=== PATIENT | female | born 1995 | race Caucasian/White ===

== ENCOUNTER 2016-02-28 09:44 | Outpatient (CLI) | payer OTHER ==
[~2016-02-28 09:44] MED LIST: METF-414 PO; PRENTAB31 PO
[2016-02-28 10:00] VITALS: BP 143/84
[2016-02-28] MEDS ORDERED: methylPREDNISolone 1,000 MG, VIAL MATE ADAPTER 1 EACH in D5W 250 ML IV ONE (10:00)
[2016-02-28] MEDS ORDERED: PROT1TAB2 PO (10:04)
[2016-02-28] MEDS ORDERED: VITA100037 PO (10:04)
[2016-02-28 11:05] VITALS: BP 132/80
== END 2016-02-28 11:11 | disposition home or self-care (01) ==
LOC: M OPCLIPED 09:44 → M PED 09:46 → M OPCLIPED 11:11
PROVIDERS: ATTEND Internal Medicine Nephrology
DX: G35 Multiple sclerosis (principal)
CPT/HCPCS: 96374; J2930

== ENCOUNTER → 2016-03-30 | Outpatient (REF) | payer OTHER ==
[~2016-03-30] MED LIST changes: +PROT1TAB2 PO; +VITA100037 PO
[2016-03-30 20:16] LABS: CONTROL LINE HCG INT CTR LINE PRESENT
== END | disposition home or self-care (01) ==
LOC: M SFHCLERA 17:10
PROVIDERS: ATTEND Family Medicine
DX: N91.0 Primary amenorrhea (principal)

== ENCOUNTER → 2016-05-19 | Outpatient (REF) | payer OTHER ==
[2016-05-19 21:03] LABS: CONTROL LINE HCG INT CTR LINE PRESENT
== END ==
LOC: M SFHCLERA 17:03
PROVIDERS: ATTEND Family Medicine
DX: N92.6 Irregular menstruation, unspecified (principal)

== ENCOUNTER → 2016-06-14 | Outpatient (REF) | payer OTHER | LOC: M SFHCLERA 12:54 | PROVIDERS: ATTEND Family Medicine | DX: L05.01 Pilonidal cyst with abscess (principal) ==

== ENCOUNTER 2016-06-22 09:51 | Emergency (ER) | payer OTHER ==
[~2016-06-22] VITALS: Ht 152.4 cm; Wt 66.2 kg
[2016-06-22] MEDS ORDERED: COPA1INJ SC (10:03)
[2016-06-22] MEDS ORDERED: BACT800T5 PO (10:03)
[2016-06-22] MEDS ORDERED: ONDANSETRON 4MG/2ML VIAL (J2405) IV ONE (10:15)
[2016-06-22] MEDS ORDERED: NS 500 ML IV ONE (10:15)
[2016-06-22] MEDS ORDERED: PANTOPRAZOLE 40MG INJ (PROTONIX) (C9113) IV ONE (10:15)
[2016-06-22 10:40] LABS: BASO % 0.6 % (0.0-1.0); EOS # 0.3 K/mm3 (0.0-0.50); EOS % 3.7 % (0.0-3.0); LARGE UNSTAINED CELL # 0.2 K/mm3 (0.0-0.4); LARGE UNSTAINED CELL % 2.2 % (0.0-4.0); LYMPH # 2.5 K/mm3 (1.5-6.5); MEAN CORPUSCULAR HGB CONC 34.9 g/dl (32.0-36.5); MONO # 0.3 K/mm3 (0.0-0.8); MONO % 2.9 % (0.0-5.0); NEUTROPHILS # 5.7 K/mm3 (1.8-7.7); NEUTROPHILS % 64.6 % (36.0-66.0); PLATELET COUNT, AUTOMATED 236 k/mm3 (150-450); RED CELL DISTRIBUTION WIDTH 12.4 % (11.5-14.5); WHITE BLOOD COUNT 8.8 K/mm3 (4.0-10.0)
[2016-06-22 11:03] LABS: ALBUMIN 4.3 GM/DL (3.2-5.2); ALBUMIN/GLOBULIN RATIO 1.26 (1.00-1.93); ALKALINE PHOSPHATASE 66 U/L (45-117); ALT/SGPT 122 U/L (12-78); AMYLASE 39 U/L (25-115); ANION GAP 9 MEQ/L (8-16); AST/SGOT 62 U/L (15-37); BILIRUBIN,DIRECT 0.2 MG/DL (0.0-0.2); BILIRUBIN,TOTAL 0.6 MG/DL (0.2-1.0); BLOOD UREA NITROGEN 8 MG/DL (7-18); CALCIUM LEVEL 8.7 MG/DL (8.5-10.1); CARBON DIOXIDE LEVEL 25 MEQ/L (21-32); CHLORIDE LEVEL 104 MEQ/L (98-107); CREATININE FOR GFR 0.93 MG/DL (0.55-1.02); GLOMERULAR FILTRATION RATE > 60.0 (>60); GLUCOSE, FASTING 89 MG/DL (70-105); POTASSIUM SERUM 4.1 MEQ/L (3.5-5.1); SODIUM LEVEL 138 MEQ/L (136-145); TOTAL PROTEIN 7.7 GM/DL (6.4-8.2)
[2016-06-22] MEDS ORDERED: ZOFR4TAB3 PO (11:36)
[2016-06-22 11:42] VITALS: BP 99/57
== END 2016-06-22 12:07 | disposition home or self-care (01) ==
LOC: M ED 12:00
DX: R10.31 Right lower quadrant pain (principal); R11.2 Nausea with vomiting, unspecified; G35 Multiple sclerosis; E28.2 Polycystic ovarian syndrome; F17.200 Nicotine dependence, unspecified, uncomplicated; Z88.1 Allergy status to other antibiotic agents; Z79.899 Other long term (current) drug therapy

== ENCOUNTER 2016-08-11 12:47 | Emergency (ER) | payer OTHER, SELFPAY ==
[~2016-08-11] VITALS: Ht 152.4 cm; Wt 67.0 kg
[~2016-08-11 12:47] MED LIST changes: +BACT800T5 PO; +COPA1INJ SC; -VITA100037 PO; +VITA100067 PO; +ZOFR4TAB3 PO
[2016-08-11 14:47] LABS: BASO % 0.5 % (0.0-1.0); EOS # 0.2 K/mm3 (0.0-0.50); EOS % 2.1 % (0.0-3.0); LARGE UNSTAINED CELL # 0.1 K/mm3 (0.0-0.4); LARGE UNSTAINED CELL % 1.5 % (0.0-4.0); LYMPH # 2.6 K/mm3 (1.5-6.5); LYMPH % 28.1 % (24.0-44.0); MEAN CORPUSCULAR HEMOGLOBIN 31.2 pg (27.0-33.0); MEAN CORPUSCULAR VOLUME 85.2 fl (80.0-96.0); MONO # 0.4 K/mm3 (0.0-0.8); MONO % 3.9 % (0.0-5.0); NEUTROPHILS # 5.7 K/mm3 (1.8-7.7); NEUTROPHILS % 63.8 % (36.0-66.0); PLATELET COUNT, AUTOMATED 184 k/mm3 (150-450); RED CELL DISTRIBUTION WIDTH 13.1 % (11.5-14.5); WHITE BLOOD COUNT 8.9 K/mm3 (4.0-10.0)
[2016-08-11 14:55] LABS: MEAN CORPUSCULAR HGB CONC 36.6 g/dl (32.0-36.5)
[2016-08-11 15:00] LABS: ANION GAP 5 MEQ/L (8-16); BLOOD UREA NITROGEN 15 MG/DL (7-18); CALCIUM LEVEL 9.1 MG/DL (8.5-10.1); CARBON DIOXIDE LEVEL 29 MEQ/L (21-32); CHLORIDE LEVEL 108 MEQ/L (98-107); CREATININE FOR GFR 0.73 MG/DL (0.55-1.02); GLOMERULAR FILTRATION RATE > 60.0 (>60); GLUCOSE, FASTING 99 MG/DL (70-105); POTASSIUM SERUM 3.9 MEQ/L (3.5-5.1); SODIUM LEVEL 142 MEQ/L (136-145)
[2016-08-11] MEDS ORDERED: methylPREDNISolone INJ 125 MG/2 ML VIAL (J2930) IV ONE (15:00)
[2016-08-11] MEDS ORDERED: ONDANSETRON 4MG/2ML VIAL (J2405) IV ONE (15:45)
[2016-08-11] MEDS ORDERED: KETOROLAC 30 MG/ML VIAL (J1885) IV ONE (15:45)
[2016-08-11] MEDS ORDERED: ZOFR4TAB3 PO (17:37)
[2016-08-11 17:50] VITALS: BP 101/56
== END 2016-08-11 17:52 | disposition home or self-care (01) ==
LOC: M ED 13:44
DX: G35 Multiple sclerosis (principal); E28.2 Polycystic ovarian syndrome; Z79.899 Other long term (current) drug therapy; Z88.1 Allergy status to other antibiotic agents
CPT/HCPCS: 80048; 85025; 96374; 96375; 99283; J1885; J2405; J2930

== ENCOUNTER → 2016-09-26 | Outpatient (CLI) | payer OTHER | LOC: M LAB 08:47 | PROVIDERS: ATTEND Family Medicine | DX: Z36 Encounter for antenatal screening of mother (principal); Z3A.01 Less than 8 weeks gestation of pregnancy ==

== ENCOUNTER → 2016-09-28 | Outpatient (CLI) | payer OTHER | LOC: M LAB 07:08 | PROVIDERS: ATTEND Family Medicine | DX: Z3A.01 Less than 8 weeks gestation of pregnancy (principal) ==

== ENCOUNTER → 2016-10-04 | Outpatient (CLI) | payer OTHER | LOC: M LAB 13:11 | PROVIDERS: ATTEND Family Medicine | DX: Z36 Encounter for antenatal screening of mother (principal); Z3A.01 Less than 8 weeks gestation of pregnancy ==

== ENCOUNTER → 2016-10-05 | Outpatient (CLI) | payer OTHER ==
--- NOTE | 2016-10-05 19:28 | REP ---
REASON FOR EXAM: Cramping no apparent disease vaginal bleeding. COMPARISON: None. Multiple ultrasonographic images of the uterus show an anechoic structure within the endometrial complex with early increased echoes surrounding it suggestive of a decidual reaction. The mean gestational sac dimension is consistent with a 5 week 5 day gestational age. Doppler interrogation of the suspected gestational sac shows no evidence of cardiac activity. No yolk sac or pole was identified. A small amount of fluid was seen in the endocervical canal. Right ovary measures 3.1 x 1.9 x 2.7 cm and is within normal limits with an RI of 0.57. Left ovary measures 4.4 x 2.1 x 3.4 cm within the substance of the left ovary there is a 2 x 2.3 x 1.6 cm sized anechoic structure suggestive of a corpus luteum cyst. The right ovarian RI is 0.44. IMPRESSION: Possible early OB ultrasound as described above. Certainly, spontaneous in progress can not be ruled out by this exam. Followup is recommended. There was no definite evidence of an ectopic . If the patient is having pain then I would recommend close followup. Signed by eKl Medeiros DO 10/05/2016 07:46 P
== END ==
LOC: M RAD 18:02
PROVIDERS: ATTEND Obstetrics & Gynecology Gynecologic Oncology
DX: O26.851 Spotting complicating pregnancy, first trimester (principal)

== ENCOUNTER → 2016-10-12 | Outpatient (CLI) | payer OTHER ==
[2016-10-12 14:02] LABS: BASO % 0.3 % (0.0-1.0); EOS # 0.1 K/mm3 (0.0-0.50); EOS % 1.8 % (0.0-3.0); LARGE UNSTAINED CELL # 0.2 K/mm3 (0.0-0.4); LYMPH % 24.8 % (24.0-44.0); MEAN CORPUSCULAR HEMOGLOBIN 31.1 pg (27.0-33.0); MEAN CORPUSCULAR HGB CONC 35.5 g/dl (32.0-36.5); MEAN CORPUSCULAR VOLUME 87.6 fl (80.0-96.0); MONO # 0.3 K/mm3 (0.0-0.8); MONO % 3.1 % (0.0-5.0); NEUTROPHILS # 5.5 K/mm3 (1.8-7.7); NEUTROPHILS % 68.1 % (36.0-66.0); PLATELET COUNT, AUTOMATED 186 k/mm3 (150-450); RED CELL DISTRIBUTION WIDTH 12.3 % (11.5-14.5); WHITE BLOOD COUNT 8.1 K/mm3 (4.0-10.0)
[2016-10-12 14:33] LABS: HBsAg Prenatal NEGATIVE (NEGATIVE)
== END ==
LOC: M LAB 12:48
PROVIDERS: ATTEND Obstetrics & Gynecology
DX: Z34.81 Encounter for supervision of other normal pregnancy, first trimester (principal); Z36 Encounter for antenatal screening of mother; Z3A.00 Weeks of gestation of pregnancy not specified

== ENCOUNTER 2016-11-02 13:34 | Emergency (ER) | payer OTHER ==
[~2016-11-02] VITALS: Ht 152.4 cm; Wt 66.8 kg
[2016-11-02 13:34] VITALS: BP 132/74
== END 2016-11-02 15:11 | disposition left against medical advice (07) ==
LOC: M ED 13:34
DX: R10.9 Unspecified abdominal pain (principal); Z53.21 Procedure and treatment not carried out due to patient leaving prior to being seen by health care provider

== ENCOUNTER → 2016-11-23 | Outpatient (CLI) | payer OTHER | LOC: M LAB 11:17 | PROVIDERS: ATTEND Advanced Practice Midwife | DX: Z00.00 Encounter for general adult medical examination without abnormal findings (principal) ==

== ENCOUNTER → 2017-01-12 | Outpatient (CLI) | payer OTHER ==
--- NOTE | 2017-01-13 08:19 | REP ---
Clinical: Anatomical evaluation. Comparison: 10/05/2016 . Findings: Examination demonstrates a single live intrauterine in transverse lie (head to maternal right) presentation. motion is identified by technologist. Placenta is noted posteriorly and grade zero without evidence for placenta previa or abruption. Amniotic fluid volume is normal. Cervix measures 3.5 cm in length and appears closed. No evidence for nuchal cord. Gestational age by LMP 19 weeks 6 days with CARYN 06/02/2017 . Gestational age by current measurements 19 weeks 6 days with CARYN 06/02/2017 . FHR equals 144 beats per minute. BPD 4.7 cm 20 weeks 1 day HC 16.6 cm 19 weeks 2 days AC 16.4 cm 21 weeks 3 days FL 3.0 cm 19 weeks 2 days HL 2.9 cm 19 weeks 3 days HC/AC ratio 1.01 Estimated weight 340 grams ( 63rd percentile). Anatomical assessment demonstrates normal structures including cranium, choroid plexus, cavum, cerebellum/posterior fossa, nose and lips, lungs, diaphragm, stomach, cord insertion/three-vessel cord, kidneys, spine, and extremities. Limited evaluation of the facial profile, heart/ventricular outflow tracts, and bladder. Renal pelviectasis is appreciated but within normal range. Impression: Single live intrauterine in transverse lie demonstrating appropriate interval growth. Anatomical limitations as described above may warrant reevaluation and follow-up. Signed by Misha Arce MD 01/13/2017 08:10 A
== END ==
LOC: M RAD 17:33
PROVIDERS: ATTEND Specialist
DX: Z36.2 Encounter for other antenatal screening follow-up (principal)

== ENCOUNTER → 2017-01-24 | Outpatient (CLI) | payer OTHER ==
--- NOTE | 2017-01-24 22:10 | REP ---
Clinical: Anatomical evaluation. Comparison: 01/12/2017 . Findings: Examination demonstrates a single live intrauterine in breech presentation. motion is identified by technologist. Placenta is noted posteriorly and grade zero without evidence for placenta previa or abruption. Amniotic fluid volume is normal. Cervix measures 3.9 cm in length and appears closed. No evidence for nuchal cord. Gestational age by LMP 21 weeks 4 days with CARYN 06/02/2017 . Gestational age by current measurements 21 weeks 1 day with CARYN 06/05/2017 . FHR equals 162 beats per minute. Estimated weight 438 grams ( 46th percentile). Anatomical assessment demonstrates normal structures including cranium, choroid plexus, cavum, cerebellum/posterior fossa, facial features, lungs, four-chamber heart/ventricular outflow tracts, diaphragm, stomach, cord insertion/three-vessel cord, bladder, and spine. Mild renal pelviectasis is suggested measuring up to 7 mm. Impression: 1. Single live intrauterine in breech presentation demonstrating appropriate interval growth. 2. Mild renal pelviectasis is appreciated. Remainder of the anatomical assessment is complete and normal. Signed by Misha Arce MD 01/24/2017 10:02 P
== END ==
LOC: M RAD 17:15
PROVIDERS: ATTEND Specialist
DX: Z34.80 Encounter for supervision of other normal pregnancy, unspecified trimester (principal)

== ENCOUNTER → 2017-03-13 | Outpatient (CLI) | payer OTHER, BC ==
[2017-03-13 12:52] LABS: HEMATOCRIT 31.2 % (36.0-47.0); MEAN CORPUSCULAR HEMOGLOBIN 31.3 pg (27.0-33.0); MEAN CORPUSCULAR HGB CONC 35.3 g/dl (32.0-36.5); MEAN CORPUSCULAR VOLUME 88.9 fl (80.0-96.0); PLATELET COUNT, AUTOMATED 215 10^3/uL (150-450); RED BLOOD COUNT 3.51 10^6/uL (4.00-5.40); RED CELL DISTRIBUTION WIDTH 13.2 % (11.5-14.5); WHITE BLOOD COUNT 15.1 10^3/uL (4.0-10.0)
[2017-03-13 13:44] LABS: GLUCOSE CHALLENGE TEST 1 HOUR 117 MG/DL (LESS THAN 140)
== END ==
LOC: M LAB 10:51
DX: Z36.89 Encounter for other specified antenatal screening (principal); Z3A.00 Weeks of gestation of pregnancy not specified
CPT/HCPCS: 82950

== ENCOUNTER → 2017-04-04 | Outpatient (REF) | payer OTHER, BC ==
[2017-04-05 13:08] LABS: INFLUENZA A AMPLIFICATION NEGATIVE (NEGATIVE); INFLUENZA B AMPLIFICATION NEGATIVE (NEGATIVE)
== END ==
LOC: M SFHCLERA 12:15
DX: R50.9 Fever, unspecified (principal)

== ENCOUNTER 2017-04-07 13:35 | Outpatient (CLI) | payer OTHER, BC | END 2017-04-07 15:19 | disposition home or self-care (01) | LOC: M LDO 13:35 | DX: O47.03 False labor before 37 completed weeks of gestation, third trimester (principal); Z3A.30 30 weeks gestation of pregnancy; O62.0 Primary inadequate contractions | CPT/HCPCS: 59025 ==

== ENCOUNTER → 2017-04-25 | Outpatient (REF) | payer OTHER, BC | LOC: M LAB REF 13:35 | DX: Z86.14 Personal history of Methicillin resistant Staphylococcus aureus infection (principal) ==

== ENCOUNTER → 2017-05-09 | Outpatient (REF) | payer OTHER, BC | LOC: M LAB REF 16:58 | DX: Z36.89 Encounter for other specified antenatal screening (principal); Z3A.00 Weeks of gestation of pregnancy not specified | CPT/HCPCS: 87081 ==

== ENCOUNTER 2017-05-17 18:18 | Outpatient (CLI) | payer BC, OTHER | END 2017-05-17 21:15 | disposition home or self-care (01) | LOC: M LDO 18:18 | DX: O47.03 False labor before 37 completed weeks of gestation, third trimester (principal); Z3A.36 36 weeks gestation of pregnancy; Z88.1 Allergy status to other antibiotic agents | CPT/HCPCS: 59025 ==

== ENCOUNTER → 2017-05-17 | Outpatient (REF) | payer OTHER, BC | LOC: M LAB REF 17:11 | DX: Z34.83 Encounter for supervision of other normal pregnancy, third trimester (principal) ==

== ENCOUNTER 2017-06-09 10:49 | Inpatient (IN) | payer OTHER, BC ==
[2017-06-09 12:57] LABS: HEMATOCRIT 36.2 % (36.0-47.0); HEMOGLOBIN 12.8 g/dl (12.0-15.5); MEAN CORPUSCULAR HEMOGLOBIN 31.1 pg (27.0-33.0); MEAN CORPUSCULAR HGB CONC 35.4 g/dl (32.0-36.5); MEAN CORPUSCULAR VOLUME 88.1 fl (80.0-96.0); PLATELET COUNT, AUTOMATED 187 10^3/uL (150-450); RED BLOOD COUNT 4.11 10^6/uL (4.00-5.40); RED CELL DISTRIBUTION WIDTH 13.9 % (11.5-14.5); WHITE BLOOD COUNT 10.8 10^3/uL (4.0-10.0)
[2017-06-09] MEDS: miSOPROStol 50 MCG 1/2 TAB (S0191) SL (13:01)
[2017-06-09] MEDS: LR 1,000 ML IV (13:02)
[2017-06-09] MEDS: LACTATED RINGER'S 1000 ML IV (14:33)
[2017-06-09] MEDS ORDERED: ALBUTEROL 90 MCG/ACT 8GM HFA INHALER INH (15:15)
[2017-06-09] MEDS ORDERED: OXYTOCIN 30 UNITS IN 0.9% NaCl 500ML IV BAG (J2590) As Ordered (21:30)
[2017-06-09] MEDS ORDERED: OXYTOCIN DRIP 30 UNITS in APPROPRIATE DILUENT 1 EA IV (21:45)
[2017-06-09] MEDS ORDERED: FENTANYL 2MCG/ML ROPIVACAINE 0.2% IN 0.9% NACL 200ML IVBAG As Ordered (23:25)
[2017-06-10] MEDS ORDERED: FENTANYL/ROPIVACAINE/NACL BAG 200 ML EPIDURAL (01:00)
[2017-06-10] MEDS ORDERED: NALOXONE INJ 0.4 MG/1 ML VIAL (J2310) IV (01:00)
[2017-06-10] MEDS ORDERED: REFRIGERATOR IV KEYS XX (01:00)
[2017-06-10] MEDS ORDERED: EPIDURAL COMMENT XX (01:00)
[2017-06-10] MEDS ORDERED: ePHEDrine SULFATE 25 MG/5 ML(5MG/ML) SYRINGE IV (01:00)
[2017-06-10] MEDS ORDERED: LACTATED RINGER'S 1000 ML IV (01:00)
[2017-06-10] MEDS ORDERED: ONDANSETRON 4MG/2ML VIAL (J2405) IV ×2 (01:00→06:15)
[2017-06-10] MEDS ORDERED: diphenhydrAMINE INJ 50MG/ML VIAL (J1200) IV (01:00)
[2017-06-10] MEDS ORDERED: EPIDURAL/PCA KEYS XX (01:00)
[2017-06-10] MEDS: OXYTOCIN DRIP 30 UNITS in APPROPRIATE DILUENT 1 EA IV (06:08)
[2017-06-10] MEDS: LR 1,000 ML IV ×3 (06:08→09:44)
[2017-06-10] MEDS ORDERED: DIBUCAINE 1% OINTMENT 30GM TOP (06:15)
[2017-06-10] MEDS ORDERED: MEASLES,MUMPS,RUBELLA VACCINE INJ (MMR-II) (90707) SC (06:15)
[2017-06-10] MEDS ORDERED: RHOGAM 300 MCG (1500 IU) INJ (J2790) IM (06:15)
[2017-06-10] MEDS ORDERED: PROMETHAZINE 25 MG TAB PO (06:15)
[2017-06-10] MEDS: PRENATAL VITAMINS CHEWABLE TABLET PO (09:15)
[2017-06-10] MEDS ORDERED: CALCIUM CARBONATE 500 MG CHEW U/D PO (10:30)
[2017-06-10] MEDS ORDERED: ALBUTEROL 90 MCG/ACT 8GM HFA INHALER INH (10:30)
[2017-06-10] MEDS: IBUPROFEN 800 MG TAB PO (17:25)
[2017-06-10] MEDS: DOCUSATE SODIUM 100 MG CAP PO (19:46)
[2017-06-10] MEDS: ACETAMINOPHEN 500 MG TAB PO (19:47)
[2017-06-11] MEDS: ACETAMINOPHEN 500 MG TAB PO (05:17)
[2017-06-11] MEDS: IBUPROFEN 800 MG TAB PO (05:18)
[2017-06-11] MEDS: PRENATAL VITAMINS CHEWABLE TABLET PO (07:53)
== END 2017-06-11 16:31 | disposition home or self-care (01) | DRG 775 ==
LOC: M LDI 10:49 → M OBS 06-10 09:30
PROVIDERS: Obstetrics & Gynecology
PROC: 3E0P7GC Introduction of Other Therapeutic Substance into Female Reproductive, Via Natural or Artificial Opening (ICD-10-PCS; 2017-06-09)
PROC: 10E0XZZ Delivery of Products of Conception, External Approach (ICD-10-PCS; principal; 2017-06-10)
PROC: 0HQ9XZZ Repair Perineum Skin, External Approach (ICD-10-PCS; 2017-06-10)
DX: O99.354 Diseases of the nervous system complicating childbirth (principal); G35 Multiple sclerosis; Z3A.39 39 weeks gestation of pregnancy; O70.0 First degree perineal laceration during delivery; O99.334 Smoking (tobacco) complicating childbirth; F17.210 Nicotine dependence, cigarettes, uncomplicated; Z37.0 Single live birth

== ENCOUNTER → 2017-07-05 | Outpatient (CLI) | payer OTHER, BC ==
[2017-07-05 14:19] LABS: THYROID STIMULATING HORMONE 0.503 uIU/ML (0.358-3.740)
== END ==
LOC: M LAB 12:37
DX: F41.9 Anxiety disorder, unspecified (principal)
CPT/HCPCS: 84443

== ENCOUNTER → 2017-07-05 | Outpatient (CLI) | payer OTHER, BC ==
[2017-07-05 13:12] LABS: BASO # 0.1 10^3/uL (0.0-0.2); BASO % 0.5 % (0.0-1.0); EOS # 0.3 10^3/uL (0.0-0.50); EOS % 2.6 % (0.0-3.0); HEMATOCRIT 38.4 % (36.0-47.0); HEMOGLOBIN 13.2 g/dl (12.0-15.5); IMMATURE GRANULOCYTE % 0.2 % (0-3.0); LYMPH # 3.7 10^3/uL (1.5-6.5); LYMPH % 39.3 % (24.0-44.0); MEAN CORPUSCULAR HEMOGLOBIN 30.2 pg (27.0-33.0); MEAN CORPUSCULAR HGB CONC 34.4 g/dl (32.0-36.5); MEAN CORPUSCULAR VOLUME 87.9 fl (80.0-96.0); MONO # 0.4 10^3/uL (0.0-0.8); MONO % 3.8 % (0.0-5.0); NEUTROPHILS # 5.1 10^3/uL (1.8-7.7); NEUTROPHILS % 53.6 % (36.0-66.0); PLATELET COUNT, AUTOMATED 249 10^3/uL (150-450); RED BLOOD COUNT 4.37 10^6/uL (4.00-5.40); RED CELL DISTRIBUTION WIDTH 12.3 % (11.5-14.5); WHITE BLOOD COUNT 9.5 10^3/uL (4.0-10.0)
[2017-07-05 14:08] LABS: ALBUMIN 3.9 GM/DL (3.2-5.2); ALBUMIN/GLOBULIN RATIO 1.18 (1.00-1.93); ALKALINE PHOSPHATASE 71 U/L (45-117); ALT/SGPT 19 U/L (12-78); AST/SGOT 13 U/L (7-37); BILIRUBIN,DIRECT 0.2 MG/DL (0.0-0.2); BILIRUBIN,TOTAL 1.2 MG/DL (0.2-1.0); TOTAL PROTEIN 7.2 GM/DL (6.4-8.2)
[2017-07-06 10:14] LABS: HERPES ZOSTER, VARICELLA IgG 607 index (Immune >165)
== END ==
LOC: M LAB 12:30
DX: G35 Multiple sclerosis (principal)
CPT/HCPCS: 93005

== ENCOUNTER 2017-11-11 12:00 | Emergency (ER) | payer OTHER, BC ==
[2017-11-11 13:09] LABS: HEMATOCRIT 37.8 % (36.0-47.0); HEMOGLOBIN 12.8 g/dl (12.0-15.5); MEAN CORPUSCULAR HEMOGLOBIN 29.5 pg (27.0-33.0); MEAN CORPUSCULAR HGB CONC 33.9 g/dl (32.0-36.5); MEAN CORPUSCULAR VOLUME 87.1 fl (80.0-96.0); PLATELET COUNT, AUTOMATED 236 10^3/uL (150-450); RED BLOOD COUNT 4.34 10^6/uL (4.00-5.40); RED CELL DISTRIBUTION WIDTH 12.5 % (11.5-14.5); WHITE BLOOD COUNT 13.3 10^3/uL (4.0-10.0)
[2017-11-11] MEDS: METOCLOPRAMIDE INJ 10MG/2ML VIAL (J2765) IV (13:09)
[2017-11-11] MEDS: diphenhydrAMINE INJ 50MG/ML VIAL (J1200) IV (13:09)
[2017-11-11] MEDS: NS 1,000 ML IV (13:10)
[2017-11-11] MEDS: IPRATROPIUM 0.5MG/ALBUTEROL 2.5MG INH SOL UD 3ML (DUONEB)(J7620) NEB (13:30)
[2017-11-11 13:32] LABS: ANION GAP 8 MEQ/L (8-16); BLOOD UREA NITROGEN 13 MG/DL (7-18); CARBON DIOXIDE LEVEL 24 MEQ/L (21-32); CHLORIDE LEVEL 108 MEQ/L (98-107); CREATININE FOR GFR 0.94 MG/DL (0.55-1.30); GLOMERULAR FILTRATION RATE > 60.0 (>60); GLUCOSE, FASTING 98 MG/DL (70-100); POTASSIUM SERUM 4.3 MEQ/L (3.5-5.1); SODIUM LEVEL 140 MEQ/L (136-145)
[2017-11-11] MEDS: dexameTHASONE 20 MG/5 ML VIAL (J1100) IV (14:24)
== END 2017-11-11 15:13 | disposition home or self-care (01) ==
LOC: M ED 12:00
DX: R51 Headache (principal); L02.31 Cutaneous abscess of buttock; G35 Multiple sclerosis; K21.9 Gastro-esophageal reflux disease without esophagitis; F41.9 Anxiety disorder, unspecified; F33.9 Major depressive disorder, recurrent, unspecified; Z79.899 Other long term (current) drug therapy; F17.210 Nicotine dependence, cigarettes, uncomplicated
CPT/HCPCS: J1200

== ENCOUNTER → 2018-03-09 | Outpatient (REF) | payer OTHER, BC ==
[~2018-03-09] MED LIST changes: +ALBU17IN2 INH; +CLIN150C14 PO; +IBUP-1114 PO; +IMIT50TA PO; +MAPA500T2 PO; +METF10004 PO; +PANT40TA3 PO; +RANI15TA PO; +SERT25TA PO; +SPRI28TA PO; +TUMS500C PO; +ZOFR4TAB14 PO; -ZOFR4TAB3 PO
== END ==
LOC: M SFHCLERA 10:49
PROVIDERS: ATTEND Family Medicine
DX: Z11.1 Encounter for screening for respiratory tuberculosis (principal); Z78.9 Other specified health status

== ENCOUNTER → 2018-11-01 | Outpatient (REF) | payer OTHER, BC ==
[~2018-11-01] MED LIST changes: -ALBU17IN2 INH; +PROV108A INH; -SERT25TA PO; +SERT25TA85 PO
== END ==
LOC: M SFHCLERA 15:49
PROVIDERS: ATTEND Physician Assistant
DX: Z11.1 Encounter for screening for respiratory tuberculosis (principal)

== ENCOUNTER → 2018-11-04 | Outpatient (REF) | payer BC | LOC: M LAB REF 11:05 | PROVIDERS: ATTEND Nurse Practitioner Family | DX: J02.9 Acute pharyngitis, unspecified (principal) ==

== ENCOUNTER → 2019-06-20 | Outpatient (REF) | payer OTHER, BC | LOC: M SFHCLERA 16:17 | PROVIDERS: ATTEND Family Medicine | DX: N92.6 Irregular menstruation, unspecified (principal) ==

== ENCOUNTER 2019-08-22 15:21 | Emergency (ER) | payer BC, OTHER ==
[~2019-08-22] VITALS: Ht 152.4 cm; Wt 70.5 kg
[2019-08-22] MEDS ORDERED: PRED10TA2 PO (17:26)
[2019-08-22] MEDS ORDERED: predniSONE 20 MG TAB PO ONE (17:30)
[2019-08-22 17:35] VITALS: BP 119/79
== END 2019-08-22 17:37 | disposition home or self-care (01) ==
LOC: M ED 15:21
DX: G35 Multiple sclerosis (principal); R51 Headache; R47.81 Slurred speech; R13.10 Dysphagia, unspecified; F17.210 Nicotine dependence, cigarettes, uncomplicated

== ENCOUNTER 2019-08-27 15:24 | Outpatient (CLI) | payer BC ==
[~2019-08-27] VITALS: Ht 152.4 cm; Wt 70.5 kg
[~2019-08-27 15:24] MED LIST changes: +PRED10TA2 PO
[2019-08-27 15:49] VITALS: BP 101/59
[2019-08-27] MEDS ORDERED: methylPREDNISolone 1,000 MG, VIAL MATE ADAPTER 1 EACH in D5W 250 ML IV ONE (16:00)
[2019-08-27 17:21] VITALS: BP 104/56
== END 2019-08-27 17:25 | disposition home or self-care (01) ==
LOC: M INFU 15:24
PROVIDERS: ATTEND Physician Assistant
DX: G35 Multiple sclerosis (principal)
CPT/HCPCS: 96365; J2930

== ENCOUNTER 2019-08-28 16:01 | Outpatient (CLI) | payer BC ==
[~2019-08-28] VITALS: Ht 152.4 cm; Wt 70.5 kg
[~2019-08-28 16:01] MED LIST changes: +PANT40TA29 PO; -PANT40TA3 PO; +methylPREDNISolone 1,000 MG, VIAL MATE ADAPTER 1 EACH in D5W 250 ML IV ONE
[2019-08-28 16:18] VITALS: BP 102/56
[2019-08-28 17:25] VITALS: BP 100/59
== END 2019-08-28 17:30 | disposition home or self-care (01) ==
LOC: M INFU 16:01
PROVIDERS: ATTEND Physician Assistant
DX: G35 Multiple sclerosis (principal)
CPT/HCPCS: 96365; J2930

== ENCOUNTER 2019-08-29 15:54 | Outpatient (CLI) | payer BC ==
[~2019-08-29] VITALS: Ht 152.4 cm; Wt 70.5 kg
[~2019-08-29 15:54] MED LIST changes: -methylPREDNISolone 1,000 MG, VIAL MATE ADAPTER 1 EACH in D5W 250 ML IV ONE
[2019-08-29] MEDS ORDERED: methylPREDNISolone 1,000 MG, VIAL MATE ADAPTER 1 EACH in D5W 250 ML IV ONE (16:30)
[2019-08-29 16:34] VITALS: BP 124/56
[2019-08-29 17:33] VITALS: BP 100/58
== END 2019-08-29 17:30 | disposition home or self-care (01) ==
LOC: M INFU 15:54
PROVIDERS: ATTEND Physician Assistant
DX: G35 Multiple sclerosis (principal)
CPT/HCPCS: 96365; J2930

== ENCOUNTER 2019-08-30 10:04 | Outpatient (CLI) | payer BC ==
[~2019-08-30] VITALS: Ht 152.4 cm; Wt 70.5 kg
[~2019-08-30 10:04] MED LIST changes: +methylPREDNISolone 1,000 MG, VIAL MATE ADAPTER 1 EACH in D5W 250 ML IV ONE
[2019-08-30 10:29] VITALS: BP 114/61
[2019-08-30 11:35] VITALS: BP 107/65
== END 2019-08-30 11:35 | disposition home or self-care (01) ==
LOC: M INFU 10:04
PROVIDERS: ATTEND Physician Assistant
DX: G35 Multiple sclerosis (principal)
CPT/HCPCS: 96365; J2930

== ENCOUNTER → 2019-11-27 | Outpatient (CLI) | payer BC ==
[~2019-11-27] MED LIST changes: +FLUO20CA22; +GLAT40IN; +LETR2.5T2; +METF-838; +OMEP-218; +OXYB10TA23; +PROHANCE 279.3MG/ML 15ML VIAL As Ordered ONE; +RALT40TA PO; +SUMA50TA2; +TRUVTAB PO; -methylPREDNISolone 1,000 MG, VIAL MATE ADAPTER 1 EACH in D5W 250 ML IV ONE
[2019-11-27 10:58] LABS: BASO # 0.1 10^3/uL (0.0-0.2); BASO % 0.6 % (0.0-1.0); EOS # 0.1 10^3/uL (0.0-0.5); HEMATOCRIT 38.9 % (36.0-47.0); HEMOGLOBIN 13.3 g/dl (12.0-15.5); LYMPH # 2.1 10^3/uL (1.5-5.0); LYMPH % 23.2 % (24.0-44.0); MEAN CORPUSCULAR HEMOGLOBIN 29.2 pg (27.0-33.0); MEAN CORPUSCULAR HGB CONC 34.2 g/dl (32.0-36.5); MEAN CORPUSCULAR VOLUME 85.3 fl (80.0-96.0); MONO # 0.5 10^3/uL (0.0-0.8); MONO % 5.6 % (0.0-5.0); NEUTROPHILS # 6.2 10^3/uL (1.5-8.5); NEUTROPHILS % 69.3 % (36.0-66.0); PLATELET COUNT, AUTOMATED 213 10^3/uL (150-450); RED BLOOD COUNT 4.56 10^6/uL (4.00-5.40); WHITE BLOOD COUNT 8.9 10^3/uL (4.0-10.0)
[2019-11-27 11:22] LABS: ALBUMIN 3.9 GM/DL (3.2-5.2); ALT/SGPT 20 U/L (12-78); BILIRUBIN,TOTAL 1.1 MG/DL (0.2-1.0); BLOOD UREA NITROGEN 14 MG/DL (7-18); CARBON DIOXIDE LEVEL 27 MEQ/L (21-32); CHLORIDE LEVEL 106 MEQ/L (98-107); CREATININE FOR GFR 0.92 MG/DL (0.55-1.30); GLOMERULAR FILTRATION RATE > 60.0 (>60); GLUCOSE, FASTING 81 MG/DL (70-100); POTASSIUM SERUM 4.1 MEQ/L (3.5-5.1); SODIUM LEVEL 137 MEQ/L (136-145); TOTAL PROTEIN 6.8 GM/DL (6.4-8.2)
[2019-11-27 12:41] LABS: TOTAL 25(OH) VITAMIN D 23.3 NG/ML (30.0-100.0)
--- NOTE | 2019-11-27 14:29 | REPVR ---
PROCEDURE INFORMATION: Exam: MR Cervical Spine Without and With Contrast Exam date and time: 11/27/2019 9:21 AM Age: 24 years old Clinical indication: Condition or disease; Patient HX: F/u ms. Compare to prior; Additional info: G35- ms TECHNIQUE: Imaging protocol: Multiplanar magnetic resonance images of the cervical spine without and with intravenous contrast. Contrast material: PROHANCE; Contrast volume: 13 ml; Contrast route: INTRAVENOUS (IV); COMPARISON: No relevant prior studies available. FINDINGS: Vertebrae: Unremarkable. Spinal cord: Normal signal. No cord compression. Discs/Spinal canal/Neural foramina: C2/3: No acute abnormality. C3/4: No acute abnormality. C4/5: No acute abnormality. C5/6: No disc protrusion or extrusion. Mild spinal stenosis at 9 mm possibly congenital. Normal foramina. C6/7: There is a small left paracentral disc protrusion. There is spinal stenosis at 8 mm. The foramina appear normal. C7/T1: No acute abnormality. Vasculature: Expected flow voids in the vertebral arteries. Soft tissues: There is a incompletely seen posterior sebaceous cyst to the left of midline measuring 8 by 4 mm only seen in the sagittal plane at the T2 level. IMPRESSION: Unfortunately, there are no prior cervical spine MRI images. Therefore comparison cannot be made as requested in the clinical indication. No evidence of abnormal cervical cord signal. Spinal stenosis multilevel likely congenital. Small left paracentral protrusion C6/7. Electronically signed by: Eugene Sabillon On 11/27/2019 14:28:56 PM
--- NOTE | 2019-11-27 14:37 | REPVR ---
PROCEDURE INFORMATION: Exam: MR Head Without and With Contrast Exam date and time: 11/27/2019 9:21 AM Age: 24 years old Clinical indication: Condition or disease; Multiple sclerosis; Patient HX: F/u; Additional info: G35- ms TECHNIQUE: Imaging protocol: MR of the head without and with intravenous contrast. 3D rendering (Not supervised by radiologist): MIP and/or 3D reconstructed images were created by the technologist. Contrast material: PROHANCE; Contrast volume: 13 ml; Contrast route: INTRAVENOUS (IV); COMPARISON: MRI-Brain W/O FOLL BY WITH 01/22/2016 3:00 PM FINDINGS: Brain: Diffusion-weighted imaging is negative. Extensive areas of increased signal seen within the deep white matter. This affects the right cerebellar peduncle. The rest lesions are in the supratentorial compartment. Most of them have an axis perpendicular to the ventricular system. They are more numerous on this examination however, since the previous examination the 2 largest lesions 1 on the right and 1 on the left have overall decreased in size. There is no evidence of abnormal contrast enhancement associated with any of these lesions. 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 The finding on the left is new specific image 401/15. On the right, the previously seen area that was seen on image 7/16 has resolved but multiple other new right periventricular areas are noted. Cerebral ventricles: Unremarkable for age. Bones/joints: Unremarkable. Paranasal sinuses: Normal as visualized. No acute sinusitis. Mastoid air cells: Normal as visualized. No mastoid effusion. Orbits: Unremarkable. Soft tissues: Unremarkable. IMPRESSION: Since the previous examination there are more numerous lesions noted in the deep white matter in the supratentorial compartment. One lesion in the infratentorial compartment is stable that being the right cerebellar peduncle. However, the size of the 2 largest lesions on the previous examination has decreased. No abnormal enhancement. Areas of diminished T1 signal indicating severe disease as discussed above. Electronically signed by: Eugene Sabillon On 11/27/2019 14:37:14 PM
== END ==
LOC: M RAD 08:05
PROVIDERS: ATTEND Physician Assistant
DX: G35 Multiple sclerosis (principal); M48.02 Spinal stenosis, cervical region; M50.223 Other cervical disc displacement at C6-C7 level; R90.82 White matter disease, unspecified
CPT/HCPCS: 36415; 70553; 72156; 80053; 82306; 85025; 86711; A9576

== ENCOUNTER → 2019-12-03 | Outpatient (CLI) | payer BC ==
[~2019-12-03] MED LIST changes: -PROHANCE 279.3MG/ML 15ML VIAL As Ordered ONE
== END ==
LOC: M LAB 17:15
PROVIDERS: ATTEND Family Medicine
DX: N92.6 Irregular menstruation, unspecified (principal)

== ENCOUNTER 2020-01-01 16:29 | Emergency (ER) | payer BC, OTHER ==
[~2020-01-01] VITALS: Ht 152.4 cm; Wt 65.4 kg
[~2020-01-01 16:29] MED LIST changes: -FLUO20CA22; -GLAT40IN; -LETR2.5T2; -METF-838; -OMEP-218; -OXYB10TA23; -RALT40TA PO; -SUMA50TA2; -TRUVTAB PO
[2020-01-01] MEDS ORDERED: FLUO20CA22 (16:36)
[2020-01-01] MEDS ORDERED: OMEP-218 (16:36)
[2020-01-01] MEDS ORDERED: SUMA50TA2 (16:36)
[2020-01-01] MEDS ORDERED: METF-838 (16:36)
[2020-01-01] MEDS ORDERED: GLAT40IN (16:36)
[2020-01-01] MEDS ORDERED: LETR2.5T2 (16:36)
[2020-01-01] MEDS ORDERED: OXYB10TA23 (16:36)
[2020-01-01] MEDS ORDERED: TRUVTAB PO (17:08)
[2020-01-01] MEDS ORDERED: RALT40TA PO (17:08)
[2020-01-01] MEDS ORDERED: EXPOSURE KIT-ADULT 7 DAY SUPPLY PO ONE (17:15)
[2020-01-01 17:28] LABS: BASO # 0.1 10^3/uL (0.0-0.2); BASO % 0.7 % (0.0-1.0); EOS # 0.2 10^3/uL (0.0-0.5); EOS % 2.6 % (0.0-3.0); HEMATOCRIT 38.3 % (36.0-47.0); LYMPH # 2.2 10^3/uL (1.5-5.0); MEAN CORPUSCULAR HEMOGLOBIN 29.1 pg (27.0-33.0); MEAN CORPUSCULAR HGB CONC 33.9 g/dl (32.0-36.5); MEAN CORPUSCULAR VOLUME 85.7 fl (80.0-96.0); MONO # 0.3 10^3/uL (0.0-0.8); MONO % 4.4 % (0.0-5.0); NEUTROPHILS # 4.2 10^3/uL (1.5-8.5); PLATELET COUNT, AUTOMATED 196 10^3/uL (150-450); RED BLOOD COUNT 4.47 10^6/uL (4.00-5.40)
[2020-01-01 18:05] LABS: ALT/SGPT 82 U/L (12-78); BILIRUBIN,TOTAL 1.3 MG/DL (0.2-1.0); BLOOD UREA NITROGEN 7 MG/DL (7-18); CALCIUM LEVEL 9.2 MG/DL (8.5-10.1); CARBON DIOXIDE LEVEL 28 MEQ/L (21-32); CHLORIDE LEVEL 106 MEQ/L (98-107); CREATININE FOR GFR 0.63 MG/DL (0.55-1.30); GLOMERULAR FILTRATION RATE > 60.0 (>60); GLUCOSE, FASTING 84 MG/DL (70-100); SODIUM LEVEL 138 MEQ/L (136-145); TOTAL PROTEIN 6.8 GM/DL (6.4-8.2)
[2020-01-01 18:15] LABS: HEPATITIS B SURFACE ANTIBODY NEGATIVE (POSITIVE)
[2020-01-01 18:16] LABS: HCG, SERUM QUALITATIVE NEGATIVE (NEGATIVE)
[2020-01-01 18:26] LABS: HEPATITIS B SURFACE ANTIGEN NEGATIVE (NEGATIVE)
[2020-01-01] MEDS ORDERED: RALTEGRAVIR 400 MG TAB (ISENTRESS) PO ONE (18:30)
[2020-01-01] MEDS ORDERED: TRUVADA 200MG/300MG TABLET PO ONE (18:30)
[2020-01-01 18:44] VITALS: BP 105/67
[2020-01-01 18:55] LABS: HIV 1&2 SCREEN CENTAUR NEGATIVE (NEGATIVE)
[2020-01-02] MEDS ORDERED: TRUVADA 200MG/300MG TABLET PO SCH
[2020-01-02] MEDS ORDERED: RALTEGRAVIR 400 MG TAB (ISENTRESS) PO SCH
== END 2020-01-01 19:20 | disposition home or self-care (01) ==
LOC: M ED 16:29
DX: Z77.21 Contact with and (suspected) exposure to potentially hazardous body fluids (principal); S61.233A Puncture wound without foreign body of left middle finger without damage to nail, initial encounter; W46.1XXA Contact with contaminated hypodermic needle, initial encounter; Y92.89 Other specified places as the place of occurrence of the external cause; Y93.F9 Activity, other caregiving; Y99.0 Civilian activity done for income or pay; K21.9 Gastro-esophageal reflux disease without esophagitis; G35 Multiple sclerosis; E28.2 Polycystic ovarian syndrome; Z88.1 Allergy status to other antibiotic agents; Z79.899 Other long term (current) drug therapy

== ENCOUNTER → 2020-01-16 | Outpatient (CLI) | payer BC, OTHER ==
[~2020-01-16] MED LIST changes: +FLUO20CA22; +GLAT40IN; +LETR2.5T2; +METF-838; +OMEP-218; +OXYB10TA23; +RALT40TA PO; +SUMA50TA2; +TRUVTAB PO
[2020-01-16 11:24] LABS: ALBUMIN 3.7 GM/DL (3.2-5.2); BILIRUBIN,DIRECT 0.4 MG/DL (0.0-0.2); BILIRUBIN,TOTAL 1.9 MG/DL (0.2-1.0); FREE T4 0.98 NG/DL (0.76-1.46); PERCENT SATURATION 43.9 % (13.2-45.0); THYROID STIMULATING HORMONE 0.719 uIU/ML (0.358-3.740); TOTAL PROTEIN 6.5 GM/DL (6.4-8.2)
[2020-01-16 12:03] LABS: AMORPHOUS SEDIMENT SMALL (NEGATIVE); APPEARANCE, URINE TURBID (CLEAR); BACTERIA, URINE AUTO NEGATIVE (NEGATIVE); BILIRUBIN, URINE AUTO NEGATIVE (NEGATIVE); BLOOD, URINE BLOOD 1+ (NEGATIVE); COLOR, URINE YELLOW (YELLOW); GLUCOSE, URINE (UA) AUTO NEGATIVE (NEGATIVE); KETONE, URINE AUTO NEGATIVE (NEGATIVE); LEUKOCYTE ESTERASE, URINE AUTO 1+ (NEGATIVE); MUCUS, URINE MODERATE (NEGATIVE); NITRITE, URINE AUTO NEGATIVE (NEGATIVE); PROTEIN, URINE AUTO NEGATIVE (NEGATIVE); RBC, URINE AUTO 3 /HPF (0-3); SPECIFIC GRAVITY URINE AUTO 1.025 (1.002-1.035); SQUAMOUS EPITHELIAL CELL UR AU 16 /HPF (0-6); WBC, URINE AUTO 8 /HPF (0-3)
[2020-01-18 19:06] LABS: ANA (HEP2) Negative (.); TISSUE TRANSGLUTAMINASE IgA <2 U/mL (0-3)
== END ==
LOC: M LAB 09:53
PROVIDERS: ATTEND Family Medicine
DX: R74.8 Abnormal levels of other serum enzymes (principal)

== ENCOUNTER → 2020-02-05 | Outpatient (CLI) | payer BC ==
--- NOTE | 2020-02-05 11:40 | REP ---
INDICATION: ELEVATED LFT'S. COMPARISON: None. TECHNIQUE: Real-time sonographic evaluation of right upper quadrant performed. FINDINGS: The gallbladder demonstrates no evidence of intraluminal sludge or calculi, wall thickening or pericholecystic fluid. There is no intrahepatic or extrahepatic biliary dilatation, common bile duct measures 4 mm in maximum diameter. The liver demonstrates homogeneous echotexture with no gross mass. The pancreas demonstrates homogeneous echotexture with no gross mass. The right kidney demonstrates no hydronephrosis, with a normal size of 9.2 cm in length. No free fluid is seen. IMPRESSION: Negative right upper quadrant ultrasound. <Electronically signed by Jeremi Contreras > 02/05/20 [id number]
== END ==
LOC: M RAD 08:25
PROVIDERS: ATTEND Family Medicine
DX: R74.8 Abnormal levels of other serum enzymes (principal)

== ENCOUNTER → 2020-03-13 | Outpatient (REF) | payer BC ==
[~2020-03-13] MED LIST changes: -CLIN150C14 PO; +CLIN150C15 PO; +SULF1TAB93; +VALA1TAB5 PO
== END ==
LOC: M SFHCLERA 18:01
PROVIDERS: ATTEND Nurse Practitioner Family
DX: L02.91 Cutaneous abscess, unspecified (principal)

== ENCOUNTER → 2020-03-13 | Outpatient (REF) | payer BC | LOC: M SFHCLERA 13:59 | PROVIDERS: ATTEND Nurse Practitioner Family | DX: L02.91 Cutaneous abscess, unspecified (principal) ==

== ENCOUNTER 2020-03-15 16:28 | Emergency (ER) | payer BC ==
[~2020-03-15] VITALS: Ht 152.4 cm; Wt 69.2 kg
[2020-03-15 16:28] VITALS: BP 120/67
[~2020-03-15 16:28] MED LIST changes: -SULF1TAB93; -VALA1TAB5 PO
--- OUTSIDE RECORDS SUMMARY | 2020-03-15 16:35 | CCD ---
Author Author [facility] Organization [facility] Address Unknown Phone Unavailable Care Team Providers Care Cello Teacher Name Role Phone TeraIrwina Unavailable PROBLEMS Type Condition ICD9-CM Code RXT66-ON Code Onset Dates Condition S tatus SNOMED Code Notes Problem Tobacco use disorder F17.200 Active 516513425 Problem Other obesity due to excess calories E66.09 Act cira 785996271 Problem Dysthymia F34.1 Active 57801292 Problem Infertility associated with anovulation N97.0 Active 742109472 Problem Gastroesophageal reflux disease without esophagitis K21.9 Active 147838838 Problem Bipolar II disorder F31.81 Active 27455496 Problem Multiple sclerosis G35 Active 00844711 Problem Body mass index (BMI) of 30.0-30.9 in adult Z68.30 Active 812915635 Problem Body mass index (BMI) of 32.0-32.9 in adult Z68.32 Active 900801769 Problem Obesity, unspecified E66.9 Active 044218469 Problem Late menses N92.6 Active 97286035 ALLERGIES Allergen (clinical drug ingredient) Drug/Non Drug Allergy do cumented on EMR Reaction Allergy Type Onset Date Status ceclor hives Drug Allergy Active Rocephin Hives Drug Allergy Active cefaclor Cefaclor([facility] Code:[address]-96) Hives Drug Allergy Active ENCOUNTERS from 1993 to 2020-01-29 Encounter Location Date Provider Diagnosis [facility] [address] [place] [address] Dec, Tri Haley IMMUNIZATIONS Vaccine Route Administration Date Status TDAP 0.5mL (Boostrix) IM Intramuscular Apr 16, 2017 Administe red Influenza (6mo & up) Fluzone IM Intramuscular Mar 09, 2018 Ad ministered Influenza (6mo & up) Fluzone Unknown July 01, 2016 Oth ers Influenza (6mo & up) Fluzone Unknown Nov 12, 2013 Adm inistered SOCIAL HISTORY Tobacco Use: Social History Observation Description Date Details (start date - stop date) Current Smoker Sex Assigned At : Social History Observation Description Sex Assigned At Unknown Audit Question Answer Notes Total Score: 0 Interpretation: Alcohol Education Mu-Ism: Question Answer Notes Mu-Ism 03 Alevism Sexual Hx: Question Answer Notes Had sex in the last 12 months (vaginal, oral, or anal)? Yes with Men only Alcohol Screening: Question Answer Notes Did you have a drink containing alcohol in the past year? Ye s Points 1 Interpretation Negative How often did you have six or more drinks on one occas ion in the past year? Never (0 points) How many drinks did you have on a typica l day when you were drinking in the past year? 1 or 2 (0 points) How often did you have a drink containing alcohol in t he past year? Monthly or less (1 point) BMI Care Goal Follow-Up Question Answer Notes Above Normal BMI Follow-Up Dietary management educatio n, guidance, and counseling Tobacco Use: Question Answer Notes Are you a: current smoker Patient counseled on the dangers of tobacco use and urged to quit: 01/16/2020 How many cigarettes a day do you smoke? 6-10 Are you interested in quitting? Thinking about quitting Counseled the patient on smoking cessation, education provid ed 01/16/2020 REASON FOR REFERRAL No Information VITAL SIGNS No information MEDICATIONS Medication SIG (Take, Route, Frequency, Duration) Notes Start Da te End Date Status Letrozole 2.5 MG 2 tablet Orally Once a day for 5 day(s) 0 4 Dec, 2019 Active Metformin HCl 1000 MG 1 tablet with a meal Orally twice daily Active Vitamin D (Ergocalciferol) 41256 UNIT 1 capsule Orally weekly Not-Taking Gilenya Not-Taking Fluconazole 150 MG 1 tablet Orally now, repeat in 7days if not resolved for 7 day(s) Dec, Active Multi For Her - as directed Orally N ot-Taking Oxybutynin Chloride ER 10 MG 2 tablets Orally Once a day Active Glatiramer Acetate 20 MG/ML 1 ml Subcutaneous Once every other Active QUEtiapine Fumarate ER 50 MG 1 tablet in the evening O rally before bedtime for 30 day(s) Dec, Active FLUoxetine HCl 20 MG 1 capsule Orally Once a day for 30 day(s) Active Levofloxacin 750 MG 1 tablet Orally Once a day for 5 day(s) Dec, Active PROCEDURES No Information RESULTS No Results REASON FOR VISIT labs MEDICAL (GENERAL) HISTORY Type Description Date Medical History PCOS Medical History MS Medical History Tobacco dependence Surgical History T&A Surgical History Appendix Surgical History pilonidal cyst 06/13 Hospitalization History [facility] for [place] 12/2015 Hospitalization History childbirth 05/2017 Goals Section No Information Health Concerns No Information MEDICAL EQUIPMENT No Information MENTAL STATUS No Information FUNCTIONAL STATUS No Information ASSESSMENTS No Information PLAN OF TREATMENT Medication Medication Name Sig Start Date Stop Date Fluconazole 150 MG 1 tablet Orally now, repeat in 7days if not resolved for 7 day(s) Dec, QUEtiapine Fumarate ER 50 MG 1 tablet in the evening O rally before bedtime for 30 day(s) Dec, Levofloxacin 750 MG 1 tablet Orally Once a day for 5 day(s) 19 2019 Insurance Providers Payer Name Payer Address Payer Phone Insured Name Patient Relati onship to Insured Coverage Start Date Coverage End Date [employer] PPO [phone] [address] [place] self
--- OUTSIDE RECORDS SUMMARY | 2020-03-15 16:35 | CCD ---
Author Author [facility] Organization [facility] Address Unknown Phone Unavailable Care Team Providers Care Community Nurse Name Role Phone TeraIrwina Unavailable PROBLEMS Type Condition ICD9-CM Code RRR87-IP Code Onset Dates Condition S tatus SNOMED Code Notes Problem Tobacco use disorder F17.200 Active 145866154 Problem Other obesity due to excess calories E66.09 Act cira 510344843 Problem Dysthymia F34.1 Active 10363214 Problem Infertility associated with anovulation N97.0 Active 566809585 Problem Gastroesophageal reflux disease without esophagitis K21.9 Active 464219487 Problem Bipolar II disorder F31.81 Active 00545931 Problem Multiple sclerosis G35 Active 16008356 Problem Body mass index (BMI) of 30.0-30.9 in adult Z68.30 Active 152061343 Problem Body mass index (BMI) of 32.0-32.9 in adult Z68.32 Active 856151968 Problem Obesity, unspecified E66.9 Active 586783211 Problem Late menses N92.6 Active 13689901 ALLERGIES Allergen (clinical drug ingredient) Drug/Non Drug Allergy do cumented on EMR Reaction Allergy Type Onset Date Status ceclor hives Drug Allergy Active Rocephin Hives Drug Allergy Active cefaclor Cefaclor([facility] Code:[address]-57) Hives Drug Allergy Active ENCOUNTERS from 1993 to 2020-01-18 Encounter Location Date Provider Diagnosis [facility] [address] [place] [address] Dec, Tri Haley IMMUNIZATIONS Vaccine Route Administration [...] Notes Total Score: 0 Interpretation: Alcohol Education Baptism: Question Answer Notes Baptism 03 Advent Sexual Hx: Question Answer Notes Had sex [...] Orally twice daily Active Vitamin D (Ergocalciferol) 57944 UNIT 1 capsule Orally weekly Not-Taking Gilenya [...] Information RESULTS No Results REASON FOR VISIT Question about medication MEDICAL (GENERAL) HISTORY Type Description Date Medical History PCOS Medical History MS Medical History Tobacco dependence Surgical History T&A Surgical History Appendix Surgical History pilonidal cyst 06/13 Hospitalization History [facility] for [place] 12/2015 Hospitalization History childbirth [...] Coverage End Date [employer] PPO [phone] [address] [place] self
--- OUTSIDE RECORDS SUMMARY | 2020-03-15 16:35 | CCD ---
Author Author [facility] Organization [facility] Address Unknown Phone Unavailable Care Team Providers Care Security Systems Integrator Name Role Phone Leobardo Vela Unavailable PROBLEMS Type Condition ICD9-CM Code JFP47-TN Code Onset Dates Condition S tatus SNOMED Code Notes Problem Gastroesophageal reflux disease without esophagitis K21.9 Active 241068656 Problem Tobacco use disorder F17.200 Active 265795131 Problem Other obesity due to excess calories E66.09 Act cira 182284382 Problem Late menses N92.6 Active 09117427 Problem Multiple sclerosis G35 Active 67847412 Problem Infertility associated with anovulation N97.0 Active 634288405 Problem Body mass index (BMI) of 30.0-30.9 in adult Z68.30 Active 119257312 Problem Dysthymia F34.1 Active 69195098 Problem Obesity, unspecified E66.9 Active 507727357 Problem Body mass index (BMI) of 32.0-32.9 in adult Z68.32 Active 295224421 ALLERGIES Allergen (clinical drug ingredient) Drug/Non Drug Allergy do cumented on EMR Reaction Allergy Type Onset Date Status ceclor hives Drug Allergy Active Rocephin Hives Drug Allergy Active cefaclor Cefaclor([facility] Code:[address]-74) Hives Drug Allergy Active ENCOUNTERS from 1993 to 2020-01-02 Encounter Location Date Provider Diagnosis [facility] [address] [place] [id number] Dec, Leobardo Vela Infertility associat ed with anovulation N97.0 IMMUNIZATIONS Vaccine Route Administration Date Status TDAP [...] Notes Total Score: 0 Interpretation: Alcohol Education Gnosticism: Question Answer Notes Gnosticism 03 Orthodoxy Sexual Hx: Question Answer Notes Had sex [...] of tobacco use and urged to quit: 09/14/2018 How many cigarettes a day do you smoke? 6-10 Are you interested in quitting? Thinking about quitting Counseled the patient on smoking cessation, education provid ed 09/14/2018 REASON FOR REFERRAL No Information VITAL SIGNS No information MEDICATIONS Medication SIG (Take, Route, Frequency, Duration) Start Date En d Date Status Letrozole 2.5 MG 2 tablet Orally Once a day for 5 day(s) Dec, 20 Active Vitamin D (Ergocalciferol) 99056 UNIT 1 capsule Orally weekly Active Gilenya Active Multi For Her - as directed Orally Active PROCEDURES No Information RESULTS No Results REASON FOR VISIT letrozole MEDICAL (GENERAL) HISTORY Type Description Date Medical History PCOS Medical History MS Medical History Tobacco dependence Surgical History T&A Surgical History Appendix Surgical History pilonidal cyst 06/13 Hospitalization History [facility]- for [place] 12/2015 Hospitalization History childbirth 05/2017 Goals Section No Information Health Concerns No Information MEDICAL EQUIPMENT No Information MENTAL STATUS No Information FUNCTIONAL STATUS No Information ASSESSMENTS Encounter Date Diagnosis Notes Dec, Infertility associated with anovulation (ICD-10 - N97.0) PLAN OF TREATMENT Medication Medication Name Sig Start Date Stop Date Letrozole 2.5 MG 2 tablet Orally Once a day for 5 day(s) Dec, Insurance Providers Payer Name Payer Address Payer Phone Insured Name Patient Relati onship to Insured Coverage Start Date Coverage End Date [facility] [place] [phone] [facility] [employer] [place] [address] [address] AETNA [facility] [address] [facility] [id number] [place]
--- OUTSIDE RECORDS SUMMARY | 2020-03-15 16:35 | CCD ---
Author Author [facility] Organization [facility] Address Unknown Phone Unavailable Care Team Providers Care Leasing Agent Name Role Phone TeraTri Unavailable PROBLEMS Type Condition ICD9-CM Code NPC26-IX Code Onset Dates Condition S tatus SNOMED Code Notes Problem Tobacco use disorder F17.200 Active 681138450 Problem Other obesity due to excess calories E66.09 Act cira 466513301 Problem Dysthymia F34.1 Active 17087391 Problem Infertility associated with anovulation N97.0 Active 958459291 Problem Gastroesophageal reflux disease without esophagitis K21.9 Active 868984239 Problem Bipolar II disorder F31.81 Active 56890142 Problem Multiple sclerosis G35 Active 50088129 Problem Body mass index (BMI) of 30.0-30.9 in adult Z68.30 Active 489557895 Problem Body mass index (BMI) of 32.0-32.9 in adult Z68.32 Active 482859683 Problem Obesity, unspecified E66.9 Active 582289828 Problem Late menses N92.6 Active 83227453 ALLERGIES Allergen (clinical drug ingredient) Drug/Non Drug Allergy do cumented on EMR Reaction Allergy Type Onset Date Status ceclor hives Drug Allergy Active Rocephin Hives Drug Allergy Active cefaclor Cefaclor([facility] Code:[address]-80) Hives Drug Allergy Active ENCOUNTERS from 1993 to 2020-02-07 Encounter Location Date Provider Diagnosis [facility] [address] [place] [address] Jan, Tri Haley IMMUNIZATIONS Vaccine Route Administration Date [...] Notes Total Score: 0 Interpretation: Alcohol Education Taoist: Question Answer Notes Taoist 03 Sikh Sexual Hx: Question Answer Notes Had sex [...] 5 day(s) 0 4 Dec, 2019 Active Oxybutynin Chloride ER 10 MG 2 tablets Orally Once a day Active Gilenya Not-Taking Metformin HCl 1000 MG 1 tablet with a meal Orally twice daily Active Fluconazole 150 MG 1 tablet Orally now, repeat in 7days if not resolved for 7 day(s) Dec, Active Multi For Her - as directed Orally N ot-Taking Levofloxacin 750 MG 1 tablet Orally Once a day for 5 day(s) Dec, Active Glatiramer Acetate 20 MG/ML 1 ml Subcutaneous Once every other Active Vitamin D (Ergocalciferol) 21496 UNIT 1 capsule Orally weekly Not-Taking QUEtiapine Fumarate ER 50 MG 1 tablet in the evening O rally before bedtime for 30 day(s) Dec, Active FLUoxetine HCl 20 MG 1 capsule Orally Once a day for 30 day(s) Active Omeprazole 20 MG 1 capsule 30 minutes before morning meal Orally Once a day for 30 day(s) Jan, Active PROCEDURES No Information RESULTS No Results REASON FOR VISIT Liver us MEDICAL (GENERAL) HISTORY Type Description Date Medical History PCOS Medical History MS Medical History Tobacco dependence Surgical History T&A Surgical History Appendix Surgical History pilonidal cyst 06/13 Hospitalization History [facility] for [place] 12/2015 Hospitalization History childbirth 05/2017 [...] a day for 5 day(s) 19 2019 Omeprazole 20 MG 1 capsule 30 minutes before morning meal Orally Once a day for 30 day(s) Jan, Insurance Providers Payer Name Payer Address Payer Phone Insured Name Patient Relati onship to Insured Coverage Start Date Coverage End Date [employer] PPO [phone] [address] [place] self
--- OUTSIDE RECORDS SUMMARY | 2020-03-15 16:35 | CCD ---
Author Author [facility] Organization [facility] Address Unknown Phone Unavailable Care Team Providers Care Utility Porter Name Role Phone Tri Haley Unavailable PROBLEMS Type Condition ICD9-CM Code [id number] Code Onset Dates Condition S tatus SNOMED Code Notes Problem Gastroesophageal reflux disease without esophagitis K21.9 Active 115515976 Problem Tobacco use disorder F17.200 Active 485181379 Problem Other obesity due to excess calories E66.09 Act cira 750181061 Problem Late menses N92.6 Active 39521813 Problem Multiple sclerosis G35 Active 51925344 Problem Infertility associated with anovulation N97.0 Active 261833360 Problem Body mass index (BMI) of 30.0-30.9 in adult Z68.30 Active 725537552 Problem Dysthymia F34.1 Active 08783386 Problem Obesity, unspecified E66.9 Active 111049179 Problem Body mass index (BMI) of 32.0-32.9 in adult Z68.32 Active 052030154 ALLERGIES Allergen (clinical drug ingredient) Drug/Non Drug Allergy do cumented on EMR Reaction Allergy Type Onset Date Status ceclor hives Drug Allergy Active Rocephin Hives Drug Allergy Active cefaclor Cefaclor([facility] Code:[address]-59) Hives Drug Allergy Active ENCOUNTERS from 1993 to 2020-01-03 Encounter Location Date Provider Diagnosis [address] [address] Dec, Tri Haley IMMUNIZATIONS Vaccine Route Administration [...] Notes Total Score: 0 Interpretation: Alcohol Education Moravian: Question Answer Notes Moravian 03 Restorationism Sexual Hx: Question Answer Notes Had sex [...] day(s) Dec, 20 Active Vitamin D (Ergocalciferol) 33820 UNIT 1 capsule Orally weekly Active Gilenya Active Multi For Her - as directed Orally Active PROCEDURES No Information RESULTS No Results REASON FOR VISIT ed visit [facility] d/c 01/01; needle stick MEDICAL (GENERAL) HISTORY Type Description Date Medical History PCOS Medical History [place] Medical History Tobacco dependence Surgical History T&A Surgical History Appendix Surgical History pilonidal cyst 06/13 Hospitalization History [facility]- for [place] 12/2015 Hospitalization History childbirth 05/2017 [...] Insured Coverage Start Date Coverage End Date [employer] [facility] [place] [address] [place] [id number] NANCY METCALF BCBS [facility] [phone] [facility] Lab[facility] [place] [address] NANCY METCALF self
--- OUTSIDE RECORDS SUMMARY | 2020-03-15 16:35 | CCD ---
Author [facility] Organization [facility] Address Unknown Phone Unavailable Care Team Providers Care Career And Guidance Counselor Name Role Phone TeraIrwina Unavailable PROBLEMS Type Condition ICD9-CM Code [id number] Code Onset Dates Condition S tatus SNOMED Code Notes Problem Tobacco use disorder F17.200 Active 888917405 Problem Other obesity due to excess calories E66.09 Act cira 911691152 Problem Dysthymia F34.1 Active 89920920 Problem Infertility associated with anovulation N97.0 Active 581006158 Problem Gastroesophageal reflux disease without esophagitis K21.9 Active 482588420 Problem Bipolar II disorder F31.81 Active 98953744 Problem Multiple sclerosis G35 Active 94721671 Problem Body mass index (BMI) of 30.0-30.9 in adult Z68.30 Active 410643061 Problem Body mass index (BMI) of 32.0-32.9 in adult Z68.32 Active 017680481 Problem Obesity, unspecified E66.9 Active 206312767 Problem Late menses N92.6 Active 70548661 ALLERGIES Allergen (clinical drug ingredient) Drug/Non Drug Allergy do cumented on EMR Reaction Allergy Type Onset Date Status ceclor hives Drug Allergy Active Rocephin Hives Drug Allergy Active cefaclor Cefaclor([facility] Code:[address]-08) Hives Drug Allergy Active ENCOUNTERS from 1993 to 2020-02-01 Encounter Location Date Provider Diagnosis [facility] [address] [place] [address] Jan, Tri Haley IMMUNIZATIONS Vaccine Route Administration [...] Notes Total Score: 0 Interpretation: Alcohol Education Cheondoism: Question Answer Notes Cheondoism 03 Baptism Sexual Hx: Question Answer Notes Had sex [...] Once every other Active Vitamin D (Ergocalciferol) 17540 UNIT 1 capsule Orally weekly Not-Taking QUEtiapine [...] Information RESULTS No Results REASON FOR VISIT Heart burn/ gerd MEDICAL (GENERAL) HISTORY Type Description Date Medical History PCOS Medical History MS Medical History Tobacco dependence Surgical History T&A Surgical History Appendix Surgical History pilonidal cyst 06/13 Hospitalization History [facility] for [place] 12/2015 Hospitalization History childbirth [...] Coverage End Date [employer] PPO [phone] [address] NANCY METCALF self
--- OUTSIDE RECORDS SUMMARY | 2020-03-15 16:35 | CCD ---
Author Author [facility] Organization [facility] Address Unknown Phone Unavailable Care Team Providers Care Film Rental Clerk Name Role Phone TeraIrwina Unavailable PROBLEMS Type Condition ICD9-CM Code [id number] Code Onset Dates Condition S tatus SNOMED Code Notes Problem Tobacco use disorder F17.200 Active 189472079 Problem Other obesity due to excess calories E66.09 Act cira 531888138 Problem Dysthymia F34.1 Active 76078738 Problem Infertility associated with anovulation N97.0 Active 085454134 Problem Gastroesophageal reflux disease without esophagitis K21.9 Active 089897457 Problem Bipolar II disorder F31.81 Active 29938561 Problem Multiple sclerosis G35 Active 91272382 Problem Body mass index (BMI) of 30.0-30.9 in adult Z68.30 Active 180951802 Problem Body mass index (BMI) of 32.0-32.9 in adult Z68.32 Active 901910430 Problem Obesity, unspecified E66.9 Active 940992836 Problem Late menses N92.6 Active 72473718 ALLERGIES Allergen (clinical drug ingredient) Drug/Non Drug Allergy do cumented on EMR Reaction Allergy Type Onset Date Status ceclor hives Drug Allergy Active Rocephin Hives Drug Allergy Active cefaclor Cefaclor([facility] Code:[address]-99) Hives Drug Allergy Active ENCOUNTERS from 1993 to 2020-02-19 Encounter Location Date Provider Diagnosis [facility] [address] [place] [address] Jan, Tri Haley IMMUNIZATIONS Vaccine Route Administration [...] Assigned At Unknown Audit Question Answer Notes Interpretation: Alcohol Education Total Score: 0 Sikhism: Question Answer Notes Sikhism 03 Christianity Sexual Hx: Question Answer Notes Had sex [...] Once every other Active Vitamin D (Ergocalciferol) 08667 UNIT 1 capsule Orally weekly Not-Taking QUEtiapine [...] Information RESULTS No Results REASON FOR VISIT Covid vaccine MEDICAL (GENERAL) HISTORY Type Description Date Medical History PCOS Medical History MS Medical History Tobacco dependence Surgical History T&A Surgical History Appendix Surgical History pilonidal cyst 06/[address] [facility] for [place] 12/2015 Hospitalization History childbirth [...] Coverage End Date [employer] PPO [phone] [address] NANCY METCALF self
--- OUTSIDE RECORDS SUMMARY | 2020-03-15 16:36 | CCD ---
Author Author [facility] Organization [facility] Address Unknown Phone Unavailable Care Team Providers Care Nursing Tech Name Role Phone Sarath MONTES . Unavailable Unavailable Donal Madison MD Unavailable Unavailable Donal Madison MD Unavailable Unavailable Donal Madison MD Unavailable Unavailable Donal Madison MD Unavailable Unavailable Donal Madison MD Unavailable Unavailable Donal Madison MD Unavailable Unavailable Donal Madison MD Unavailable Unavailable Donal Madison MD Unavailable Unavailable Donal Madison MD Unavailable Unavailable Donal Madison MD Unavailable Unavailable Donal Madison MD Unavailable Unavailable ElijahioneDonal conde MD Unavailable Unavailable Donal Madison MD Unavailable Unavailable ElijahioneDonal conde MD Unavailable Unavailable Donal Madison MD Unavailable Unavailable Donal Madison MD Unavailable Unavailable Donal Madison MD Unavailable Unavailable Donal Madison MD Unavailable Unavailable SimioneDonal conde MD Unavailable Unavailable SimioneDonal conde MD Unavailable Unavailable ElijahioneDonal conde MD Unavailable Unavailable Donal Madison MD Unavailable Unavailable Donal Madison MD Unavailable Unavailable Donal Madison MD Unavailable Unavailable Donal Madison MD Unavailable Unavailable Donal Madison MD Unavailable Unavailable Donal Madison MD Unavailable Unavailable Donal Madison MD Unavailable Unavailable Donal Madison MD Unavailable Unavailable Donal Madison MD Unavailable Unavailable Donal Madison MD Unavailable Unavailable Donal Madison MD Unavailable Unavailable Donal Madison MD Unavailable Unavailable KIRCH, M JENNIE WET PAN OPERATOR Unavailable Unavailable KIRCH, M JENNIE WET PAN OPERATOR Unavailable Unavailable KIRCH, M JENNIE WET PAN OPERATOR Unavailable Unavailable KIRCH, M JENNIE WET PAN OPERATOR Unavailable Unavailable KIRCH, M JENNIE WET PAN OPERATOR Unavailable Unavailable KIRCH, M JENNIE WET PAN OPERATOR Unavailable Unavailable KIRCH, M JENNIE WET PAN OPERATOR Unavailable Unavailable KIRCH, M JENNIE WET PAN OPERATOR Unavailable Unavailable KIRCH, M JENNIE WET PAN OPERATOR Unavailable Unavailable KIRCH, M JENNIE WET PAN OPERATOR Unavailable Unavailable KIRCH, M JENNIE WET PAN OPERATOR Unavailable Unavailable KIRCH, M JENNIE WET PAN OPERATOR Unavailable Unavailable KIRCH, M JENNIE WET PAN OPERATOR Unavailable Unavailable KIRCH, M JENNIE WET PAN OPERATOR Unavailable Unavailable KIRCH, M JENNIE WET PAN OPERATOR Unavailable Unavailable KIRCH, M JENNIE WET PAN OPERATOR Unavailable Unavailable KIRCH, M JENNIE WET PAN OPERATOR Unavailable Unavailable KIRCH, M JENNIE WET PAN OPERATOR Unavailable Unavailable KIRCH, M JENNIE WET PAN OPERATOR Unavailable Unavailable KIRCH, M JENNIE WET PAN OPERATOR Unavailable Unavailable KIRCH, M JENNIE WET PAN OPERATOR Unavailable Unavailable KIRCH, M JENNIE WET PAN OPERATOR Unavailable Unavailable KIRCH, M JENNIE WET PAN OPERATOR Unavailable Unavailable KIRCH, M JENNIE WET PAN OPERATOR Unavailable Unavailable KIRCH, M JENNIE WET PAN OPERATOR Unavailable Unavailable KIRCH, M JENNIE WET PAN OPERATOR Unavailable Unavailable KIRCH, M JENNIE WET PAN OPERATOR Unavailable Unavailable KIRCH, M JENNIE WET PAN OPERATOR Unavailable Unavailable KIRCH, M JENNIE WET PAN OPERATOR Unavailable Unavailable KIRCH, M JENNIE WET PAN OPERATOR Unavailable Unavailable KIRCH, M JENNIE WET PAN OPERATOR Unavailable Unavailable KIRCH, M JENNIE WET PAN OPERATOR Unavailable Unavailable KIRCH, M JENNIE WET PAN OPERATOR Unavailable Unavailable KIRCH, M JENNIE WET PAN OPERATOR Unavailable Unavailable KIRCH, M JENNIE WET PAN OPERATOR Unavailable Unavailable KIRCH, M JENNIE WET PAN OPERATOR Unavailable Unavailable KIRCH, M JENNIE WET PAN OPERATOR Unavailable Unavailable KIRCH, M JENNIE WET PAN OPERATOR Unavailable Unavailable KIRCH, M JENNIE WET PAN OPERATOR Unavailable Unavailable KIRCH, M JENNIE WET PAN OPERATOR Unavailable Unavailable KIRCH, M JENNIE WET PAN OPERATOR Unavailable Unavailable KIRCH, M JENNIE WET PAN OPERATOR Unavailable Unavailable KIRCH, M JENNIE WET PAN OPERATOR Unavailable Unavailable KIRCH, M JENNIE WET PAN OPERATOR Unavailable Unavailable KIRCH, M JENNIE WET PAN OPERATOR Unavailable Unavailable KIRCH, M JENNIE WET PAN OPERATOR Unavailable Unavailable KIRCH, M JENNIE WET PAN OPERATOR Unavailable Unavailable KIRCH, M JENNIE WET PAN OPERATOR Unavailable Unavailable KIRCH, M JENNIE WET PAN OPERATOR Unavailable Unavailable KIRCH, M JENNIE WET PAN OPERATOR Unavailable Unavailable KIRCH, M JENNIE WET PAN OPERATOR Unavailable Unavailable GRIMES-Sekuterski, E Bessy PA Unavailable GRIMES-Sekuterski, E Bessy PA Unavailable GRIMES-Sekuterski, E Bessy PA Unavailable GRIMES-Sekuterski, E Bessy PA Unavailable GRIMES-Sekuterski, E Bessy PA Unavailable GRIMES-Sekuterski, E Bessy PA Unavailable GRIMES-Sekuterski, E Bessy PA Unavailable GRIMES-Sekuterski, E Bsesy PA Unavailable GRIMES-Sekuterski, E Bessy PA Unavailable GRIMES-Sekuterski, E Bessy PA Unavailable GRIMES-Sekuterski, E Bessy PA Unavailable GRIMES-Sekuterski, E Bessy PA Unavailable GRIMES-Sekuterski, E Bessy PA Unavailable Javier, E Bessy PA Unavailable Javier, E Bessy PA Unavailable Javier, E Bessy PA Unavailable Javier, E Bessy PA Unavailable Javier, E Bessy PA Unavailable Javier, E Bessy PA Unavailable Javier, E Bessy PA Unavailable GRIMES-Christiandylon, E Bessy PA Unavailable Javier, E Bessy PA Unavailable Davinlucillejenniferdylon, E Bessy PA Unavailable Joeydylon, E Bessy PA Unavailable Javier, E Bessy PA Unavailable Joeydylon, E Bessy PA Unavailable Joeydylon, E Bessy PA Unavailable Joeydylon, Donal Bessy PA Unavailable GRIMESKeithlucillejenniferDonal osborne Bessy PA Unavailable GRIMESKeithlucillejenniferdylon, E Bessy PA Unavailable GRIMES-Lexa, E Bessy PA Unavailable GRIMES-Christiandylon, E Bessy PA Unavailable GRIMES-lucillejenniferdylon, E Bessy PA Unavailable GRIMES-Christiandylon, E Bessy PA Unavailable GRIMES-Christiandylon, E Bessy PA Unavailable GRIMES-lucillejenniferdylon, E Bessy PA Unavailable GRIMES-Lexa, Donal Bessy PA Unavailable GRIMES-Sekuterski, E Bessy PA Unavailable [phone] GRIMES-Sekuterski, E Bessy PA Unavailable GRIMES-Sekuterski, E Bessy PA Unavailable GRIMES-Sekuterski, E Bessy PA Unavailable GRIMES-kuterski, E Bessy PA Unavailable Re-disclosure Warning The records that you are about to access may contain information from federally-assisted alcohol or drug abuse programs. If such information is present, then the following federally mandated warning applies: This information has been disclosed to you from records protected by federal confidentiality rules (42 CFR part 2). The federal rules prohibit you from making any further disclosure of this information unless further disclosure is expressly permitted by the written consent of the person to whom it pertains or as otherwise permitted by 42 CFR part 2. A general authorization for the release of medical or other information is NOT sufficient for this purpose. The Federal rules restrict any use of the information to criminally investigate or prosecute any alcohol or drug abuse patient.The records that you are about to access may contain highly sensitive health information, the redisclosure of which is protected by Article 27-F of the [facility] Public Health law. If you continue you may have access to information: Regarding HIV / AIDS; Provided by facilities licensed or operated by the [facility] Office of Mental Health; or Provided by the [facility] Office for People With Developmental Disabilities. If such information is present, then the following [facility] mandated warning applies: This information has been disclosed to you from confidential records which are protected by state law. State law prohibits you from making any further disclosure of this information without the specific written consent of the person to whom it pertains, or as otherwise permitted by law. Any unauthorized further disclosure in violation of state law may result in a fine or retirement sentence or both. A general authorization for the release of medical or other information is NOT sufficient authorization for further disc losure. Family History Family Member Name Family Member Gender Family Member Status Date o f Status Description Data Source(s) Unknown Unknown Problem MEDENT ([facility]) Encounters Encounter Providers Location Date Indications Data Source(s ) Unknown [address] [facility] [address] 02/18/2020 12:00:00 AM EST [facility]CW1 [facility] Unknown [address] [facility] [place] [address] 02/06/2020 12:00:00 AM EST eCW1 ([facility] Unknown [address] [facility] [place] [address] 01/30/2020 12:00:00 AM EST eCW1 ([facility]) Unknown [address] [facility] [place] [address] 01/21/2020 12:00:00 AM EST eCW1 ([facility]) Unknown [address] [facility] [place] [address] 01/16/2020 12:00:00 AM EST eCW1 ([facility]) Unknown [address] [facility] [place] [address] 01/02/2020 12:00:00 AM EST eCW1 ([facility]) Unknown [address] [facility] [place] [address] 01/01/2020 12:00:00 AM EST eCW1 ([facility]) Outpatient Attender: Bessy MCWILLIAMS 0 12:00:00 AM [facility] Outpatient Attender: JENNIE SIMMS NP 12/05/2019 12:00:00 A M [facility] Unknown [address] [facility] [address] 12/04/2019 12:00:00 AM EDT eCW1 ([facility]) Outpatient Attender: Bessy MCWILLIMAS [id number] 08/30/2019 12:00:00 AM EDT - 08/30/2019 09:43:53 AM EDT [facility] Multiple sclerosis Emergency Attender: Josephine Madison MDAttender: Soraya MONTES . AndreinaA-ERMADULT 08/26/2019 12:00:00 AM EDT - 08/27/2019 12:22:00 AM ED T [facility] Multiple sclerosis Patient discharged. Unknown [address] [facility] [address] 08/13/2019 12:00:00 AM EDT eCW1 ([facility]) SF [place] [address] [facility] [address] 06/21/2019 12:00:00 AM EDT eCW1 ([facility]) PSYCHIATRIC [place] [address] [facility] [address] 06/20/2019 12:00:00 AM EDT eCW1 ([facility]) Outpatient Attender: JENNIE SIMMS NP [id number] 2019 12:00:00 AM EDT - 06/05/2019 09:08:54 AM [facility] Outpatient Attender: JENNIE SIMMS NP 03/19/2019 12:00:00 A M [facility] Medications Medication Brand Name Start Date Product Form Dose Route Admi nistrative Instructions Pharmacy Instructions Status Indications Reaction Description Data Source(s) Omeprazole 20 MG Delayed Release Oral Capsule Omeprazole 20 MG 01/31/2020 12:00:00 AM EST active Omeprazo le 20 MG eCW1 ([facility]) Omeprazole 20 MG Delayed Release Oral Capsule Omeprazole 20 MG 01/31/2020 12:00:00 AM EST active Omeprazo le 20 MG eCW1 ([facility]) Omeprazole 20 MG Delayed Release Oral Capsule Omeprazole 20 MG 01/31/2020 12:00:00 AM EST active Omeprazo le 20 MG eCW1 ([facility]) Fluconazole 150 MG Oral Tablet Fluconazole 150 MG 01/17/2020 12:00: 00 AM EST 1.0 {tablet} active Fluconazole 150 MG eCW1 ([facility]) Fluconazole 150 MG Oral Tablet Fluconazole 150 MG 01/17/2020 12:00: 00 AM EST 1.0 {tablet} active Fluconazole 150 MG eCW1 ([facility]) Fluconazole 150 MG Oral Tablet Fluconazole 150 MG 01/17/2020 12:00: 00 AM EST 1.0 {tablet} active Fluconazole 150 MG eCW1 ([facility]) Fluconazole 150 MG Oral Tablet Fluconazole 150 MG 01/17/2020 12:00: 00 AM EST 1.0 {tablet} active Fluconazole 150 MG eCW1 ([facility]) Fluconazole 150 MG Oral Tablet Fluconazole 150 MG 01/17/2020 12:00: 00 AM EST 1.0 {tablet} active Fluconazole 150 MG eCW1 ([facility]) Levofloxacin 750 MG Oral Tablet Levofloxacin 750 MG 01/16/2020 1 2:00:00 AM EST 1.0 {tablet} active Levofloxaci n 750 MG eCW1 ([facility]) 24 HR quetiapine 50 MG Extended Release Oral Tablet QUEtiapine Fumarate ER 50 MG QUEtiapine Fumarate ER 50 MG 01/16/2020 12:00:00 AM EST 1.0 {tablet_in_the_evening} active QUEtiapi ne Fumarate ER 50 MG eCW1 ([facility]) 24 HR quetiapine 50 MG Extended Release Oral Tablet QUEtiapine Fumarate ER 50 MG QUEtiapine Fumarate ER 50 MG 01/16/2020 12:00:00 AM EST 1.0 {tablet_in_the_evening} active QUEtiapi ne Fumarate ER 50 MG eCW1 ([facility]) Levofloxacin 750 MG Oral Tablet Levofloxacin 750 MG 01/16/2020 1 2:00:00 AM EST 1.0 {tablet} active Levofloxaci n 750 MG eCW1 ([facility]) Levofloxacin 750 MG Oral Tablet Levofloxacin 750 MG 01/16/2020 1 2:00:00 AM EST 1.0 {tablet} active Levofloxaci n 750 MG eCW1 ([facility]) 24 HR quetiapine 50 MG Extended Release Oral Tablet QUEtiapine Fumarate ER 50 MG QUEtiapine Fumarate ER 50 MG 01/16/2020 12:00:00 AM EST 1.0 {tablet_in_the_evening} active QUEtiapi ne Fumarate ER 50 MG eCW1 ([facility]) Levofloxacin 750 MG Oral Tablet Levofloxacin 750 MG 01/16/2020 1 2:00:00 AM EST 1.0 {tablet} active Levofloxaci n 750 MG eCW1 ([facility]) Levofloxacin 750 MG Oral Tablet Levofloxacin 750 MG 01/16/2020 1 2:00:00 AM EST 1.0 {tablet} active Levofloxaci n 750 MG eCW1 ([facility]) 24 HR quetiapine 50 MG Extended Release Oral Tablet QUEtiapine Fumarate ER 50 MG QUEtiapine Fumarate ER 50 MG 01/16/2020 12:00:00 AM EST 1.0 {tablet_in_the_evening} active QUEtiapi ne Fumarate ER 50 MG eCW1 ([facility]) 24 HR quetiapine 50 MG Extended Release Oral Tablet QUEtiapine Fumarate ER 50 MG QUEtiapine Fumarate ER 50 MG 01/16/2020 12:00:00 AM EST 1.0 {tablet_in_the_evening} active QUEtiapi ne Fumarate ER 50 MG eCW1 ([facility]) letrozole 2.5 MG Oral Tablet Letrozole 2.5 MG Letrozole 2.5 MG 01/01/2020 12:00:00 AM EST 2.0 {tablet} active Le trozole 2.5 MG eCW1 ([facility]) letrozole 2.5 MG Oral Tablet Letrozole 2.5 MG Letrozole 2.5 MG 01/01/2020 12:00:00 AM EST 2.0 {tablet} active Le trozole 2.5 MG eCW1 ([facility]) letrozole 2.5 MG Oral Tablet Letrozole 2.5 MG Letrozole 2.5 MG 01/01/2020 12:00:00 AM EST 2.0 {tablet} active Le trozole 2.5 MG eCW1 ([facility]) letrozole 2.5 MG Oral Tablet Letrozole 2.5 MG Letrozole 2.5 MG 01/01/2020 12:00:00 AM EST 2.0 {tablet} active Le trozole 2.5 MG eCW1 ([facility]) letrozole 2.5 MG Oral Tablet Letrozole 2.5 MG Letrozole 2.5 MG 01/01/2020 12:00:00 AM EST 2.0 {tablet} active Le trozole 2.5 MG eCW1 ([facility]) letrozole 2.5 MG Oral Tablet Letrozole 2.5 MG Letrozole 2.5 MG 01/01/2020 12:00:00 AM EST 2.0 {tablet} active Le trozole 2.5 MG eCW1 ([facility]) letrozole 2.5 MG Oral Tablet Letrozole 2.5 MG Letrozole 2.5 MG 01/01/2020 12:00:00 AM EST 2.0 {tablet} active Le trozole 2.5 MG eCW1 ([facility]) 15 ML natalizumab 20 MG/ML Injection Jeanna alizumab 300 MG/15ML Intravenous Concentrate (Tysabri) Natalizumab 300 MG/15ML Intravenous Concentrate (Tysab ri) 08/30/2019 12:00:00 AM EDT 300 mg Intravenous active M ultiple sclerosis Inject 15 mLs into the vein every 28 (twenty-eight) days [facility] Multiple sclerosis Sumatriptan 50 MG Oral Tablet SUMAtriptan Succinate 50 MG Oral Tablet (Imitrex) SUMAtriptan Succinate 50 MG Oral Tablet (Imitrex) 08/30/2019 12:00:00 AM EDT 50 mg Oral active Other complicated headache syn dromeMultiple sclerosis Take 1 tablet by mouth as needed for MigraineMdd: 1 [facility] Other complicated headache syndrome Multiple sclerosis Fluoxetine 20 MG Oral Capsule FLUoxetine HCl 20 MG Ora l Capsule (PROzac) FLUoxetine HCl 20 MG Oral Capsule (PROzac) 08/30/2019 12:00:00 AM EDT 20 mg Oral active Take 1 capsule by mo uth daily [facility] methylPREDNISolone Sodium Succ 1000 MG I njection Solution Reconstituted (SOLU-MEDROL) 67642-961-10 08/27/2019 12:00:00 AM EDT 1000 mg Intravenou s aborted Exacerbation of multiple sclerosis Injec t 1,000 mg into the vein daily for 4 doses [facility] Exacerbation of multiple sclerosis methylPREDNISolone sodium succinate (KAMARI U-MEDROL) 1,000 mg in sodium chloride 0.9 % 100 mL IVPB 08/26/2019 09:45:00 PM EDT 1000 mg Intravenous completed 1,000 mg, Intravenous, Once, 08/26/19 at 2145, For 1 dose [facility] Medication administered onsite Omeprazole 20 MG Delayed Release Oral Ca psule Omeprazole 20 MG Oral Capsule Delayed Release Omeprazole 20 MG Oral Capsule Delayed Release 06/05/19 20 12:00:00 AM EDT 20 mg Oral aborted Take 1 capsule by mouth daily [facility] fingolimod 0.5 MG Oral Capsule Fingolimod HCl (GILENYA ) 0.5 MG CAPS Fingolimod HCl (GILENYA) 0.5 MG CAPS 11/26/2018 12:00:00 AM EDT 0.5 mg Oral aborted Multiple sclerosis Take 1 capsule by mouth daily [facility] Multiple sclerosis Magnesium 500 MG TABS [id number] 09/12/2018 12:00:00 AM EDT 500 mg Oral aborted Multiple sclerosis Take 500 mg by mouth daily [facility] Multiple sclerosis Riboflavin 100 MG Oral Tablet Riboflavin 100 MG TABS Ribofla leandra 100 MG TABS 09/12/2018 12:00:00 AM EDT 100 mg Oral aborted Multi ple sclerosis Take 100 mg by mouth daily [facility] Multiple sclerosis gabapentin 100 MG Oral Capsule gabapentin (NEURONTIN) 100 MG capsule gabapentin (NEURONTIN) 100 MG capsule 03/15/2018 12:00:00 AM EST 100 mg Oral active Take 1 capsule by mouth Three times [facility] Ergocalciferol 44385 UNT Oral Capsule vi tamin D (ERGOCALCIFEROL) 64515 units capsule vitamin D (ERGOCALCIFEROL) 29231 units capsule 019 12:00:00 AM EST 29082 U Oral aborted Take 1 capsule by mouth every 7 (seven) days [facility] 24 HR Oxybutynin chloride 10 MG Extended Release Oral Tablet oxybutynin (DITROPAN XL) 10 MG 24 hr tablet oxybutynin (DITROPAN XL) 10 MG 24 hr tablet 03/15/2018 12:00:00 AM EST 10 mg Oral active Multi ple sclerosis Take 1 tablet by mouth daily [facility] Multiple sclerosis Ethinyl Estradiol 0.035 MG / norgestimat e 0.25 MG Oral Tablet norgestimate- ethinyl estradiol (SPRINTEC 28) 0.25-35 MG-MCG per tablet norgestimate-ethinyl estradiol (SPRINTEC 28) 0.25-35 MG-MCG per tablet 1 {tbl} Oral aborted Take 1 tablet by mouth daily [facility] Prednisone 50 MG Oral Tablet predniSONE 50 MG Oral Tab let (DELTASONE) predniSONE 50 MG Oral Tablet (DELTASONE) 500 mg Oral aborted Take 500 mg by mouth daily [facility] 24 HR Bupropion Hydrochloride 150 MG Ext ended Release Oral Tablet buPROPion (WELLBUTRIN XL) 150 MG 24 hr tablet buPROPion (WELLBUTRIN XL) 150 MG 24 hr tablet 150 mg Oral aborted Take 150 mg by m outh every morning [facility] Insurance Providers Payer name Policy type / Coverage type Policy ID Covered green party ID Covered green party's relationship to bravo Policy Bravo Plan Information [employer] BC-BS PPO 306 [id number] SP [id number] [employer] BCBS B [id number] S [id number] [place] P[place] 302/307 [id number] SP [id number] SELF PAY ONLY [id number] SP [id number] [employer] BC-BS PPO 306 [id number] SP [id number] [facility] [id number] SP [id number] [facility] [id number] SP [id number] OTHER W.C.EMPLOYER [id number] SP [id number] EX[employer]US H [id number] Self [id number] [place] P[place] 302/307 [id number] SP [id number] [place] 306/806 [id number] SP [id number] AETNA U [id number] Child [id number] [place] 306/806 [id number] SP [id number] AET[place] [id number] SP [id number] SELF PAY ONLY UNAVAILABLE SP UNAV AILABLE AETNA U [id number] Child [id number] BC[place] PPO 302/307 [id number] SP [id number] [employer] [place] [id number] [id number] [employer] [place] [id number] SP [id number] ANSI-Commercial [id number] ANSI-Commercial [id number] ANSI-Commercial [id number] ANSI-Commercial [id number] AETNA U [id number] Child [id number] HM [id number] EXCELLUS C [id number] Self [id number] [employer] LIFE INSUR[employer] [place] [id number] Commercial Insu kerry [id number] [employer] [place] O [id number] S [id number] [place] PPO 302/307 [id number] SP [id number] AETNA U [id number] Child [id number] MVP EXCHANGE U [id number] Self [id number] [employer] [place] [id number] [employer] [place] [id number] SP [id number] [employer] [place] [id number] FA2 [id number] [employer] [place] O [id number] S [id number] MVP [id number] SP [id number] MVP MCDHMO [id number] SP [id number] MVP EXCHANGE U [id number] Self [id number] Cigna/Conn Gen/MVP Commercial [id number] Self [id number] [facility] [id number] SP [id number] MVP EXCHANGE U [id number] Self [id number] MVP H [id number] Self [id number] MVP EXCHANGE U [id number] Self [id number] MVP H [id number] Self [id number] [facility] [id number] SP [id number] MVP HM [id number] MVP Health Maintenance Organization (HMO) Se lf [employer] [place] [id number] FA2 [id number] [employer] Medigap Part B Family Dependen t [employer] Commercial Family Dependent [employer] [place] O [id number] C [id number] SELF PAY UNAVAILABLE UNAVAILA BLE [employer] [place] [id number] SP [id number] [employer]ETNA LIFE INS CO -O/P [id number] 18 [id number] BCBS [facility] 010/510 [id number] FA2 [id number] Problems, Conditions, and Diagnoses Code Display Name Description Problem Type Effective Dates Data Source(s) F31.81 [id number] Bipolar II disorder Problem 01/16/2020 12:00 :00 AM EST eCW1 ([facility]) 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 speech problem/MS speech problem/MS Diagnosis 08/26/2019 06:27:52 PM [facility] Surgeries/Procedures Procedure Description Date Indications Data Source(s) GONADOTROPIN CHORIONIC QUANTITATIVE POCT ISTAT BHCG Routine 08/26/2019 7:45 PM EDT 08/26/2019 11:45:00 PM EDT U [facility] BLOOD COUNT COMPLETE AUTO&AUTO DIFRNTL WBC COUNT CBC AND DIFFER ENTIAL STAT 08/26/2019 7:44 PM EDT 08/26/2019 11:44:00 PM [facility] BASIC METABOLIC PANEL CALCIUM TOTAL BASIC METABOLIC PANEL STAT 08/26/2019 7:44 PM EDT 08/26/2019 11:44:[address] [facility] Results ID Date Data Source [id number] 08/30/2019 09:22:01 AM EDT [facility] Name Value Range Interpretation Code Description Data Renita rce(s) Supporting Document(s) Progress Note [facility] XEWIAw0aYeQEFhMn70/KSXtdSCPrf7SwHKpwVTp7REqoFEKkZ6TiWUY2jQ9aHVQ0GUtTXlDbWdPqYsOq lbm [file] ICAgICAgICAgICAgICAgICAgICAgICAgICAgICAgIC AgICAgICAgICAgICAgICAgICAgICAgDQogICAgICAgICAgICAgICAgICAgICAgICAgICAgICAgICAgIC AgICAgICAgICAgICAgICAgICAgICAgICAgICAgICAgICAgICAgICAgICAgICAgICAgICAgICAgICAgIC AgICAgDQogICAgICAgICAgICAgICAgICAgICAgICAg ICAgICAgICAgICAgICAgICAgICAgICAgICAgICAgICAgICAgICAgICAgICAgICAgICAgICAgICAgICAg ICAgICAgICAgICAgICAgDQogICAgICAgICAgICAgICAgICAgICAgICAgICAgICAgICAgICAgICAgICAg ICAgICAgICAgICAgICAgICAgICAgICAgICAgICAgIC AgICAgICAgICAgICAgICAgICAgICAgICAgDQogICAgICAgICAgICAgICAgICAgICAgICAgICAgICAgIC AgICAgICAgICAgICAgICAgICAgICAgICAgICAgICAgICAgICAgICAgICAgICAgICAgICAgICAgICAgIC AgICAgICAgDQogICAgICAgICAgICAgICAgICAgICAg ICAgICAgICAgICAgICAgICAgICAgICAgICAgICAgICAgICAgICAgICAgICAgICAgICAgICAgICAgICAg ICAgICAgICAgICAgICAgICAgDQogICAgICAgICAgICAgICAgICAgICAgICAgICAgICAgICAgICAgICAg ICAgICAgICAgICAgICAgICAgICAgICAgICAgICAgIC AgICAgICAgICAgICAgICAgICAgICAgICAgICAgDQogICAgICAgICAgICAgICAgICAgICAgICAgICAgIC AgICAgICAgICAgICAgICAgICAgICAgICAgICAgICAgICAgICAgICAgICAgICAgICAgICAgICAgICAgIC AgICAgICAgICAgDQogICAgICAgICAgICAgICAgICAg ICAgICAgICAgICAgICAgICAgICAgICAgICAgICAgICAgICAgICAgICAgICAgICAgICAgICAgICAgICAg ICAgICAgICAgICAgICAgICAgICAgDQogICAgICAgICAgICAgICAgICAgICAgICAgICAgICAgICAgICAg ICAgICAgICAgICAgICAgICAgICAgICAgICAgICAgIC CrSUYqABKzVVFxYGKmTLNyLJVjEUDiVYJyTUOfZBZiXBr4L6jfIMDsQHAyYA9qDZi8Ld2+DQoNCmVuZH J9fsCezH0SNX0mo7FkDJcvYCJak1VyAJc4NP7ELIUeGEswKV5IPGffqp3XHBBkOCZnoYWIz5keBtJbEA J8BGYzWzpqUP0LGWYrA6fexsMsRAAhBICSZJrtHLRW XTpsAHAQYOHzQPEkWeGdJmDoWETaEDYlTXIHLGQ7ICQvQrXjYTknAP7Es9FrkJA2OVh+Ib9QHP6eo7Oi BLcxBERfDO9gyy4RUIyUTiLtV9OjqrC3SAHqMEJhJf5RKTHrGZFpaMXuFmDqWSVTAcEtD0SgpK65KBUV Cj4+IYyyzdCgVjjKYyNsYPCxf9RsUUz7YZ2XSHVdVT n6dORjPCNtM3Ybw1IjQt16RXPxLzyhH0HmHYVvZDWuS1cpu42fMHIPVKFjoZF9MoPgEiZcVKEyYPjlDP DWJCnNKxCkO3Mfh5ZjBnM7FQEpMoZhUTioJRRnOpJ0VP71wKzmBO6MZQRhACFfGG99RCDfMPZwUr0WOt 1KBpEoQX6tgr1UObCsECPiNpfALrk6DPiyFQ3PfTBy P7ZojYCwq6fEGnFcW9EIIXH6QHRhNz7NUTBoRhDxSXLqVAugXS9eGRBsIBQHxVymnbI2UQ6LVC0pjgFt IK9LHmJjVc0iHn1EWlTlM6CqH4DfJMVvHMEFEScxZT7PSUhgLE8fMW2Bz9MEpDIloI9nrg1DJFPnCJPb Mvbxol8LWxnjT1P2dOpaOOQnNoSrVFOPIIytDL2HIA DiLUS3ZLLbKOFhJLNKPuLsA46jYG8FX4Gib85rTmY2EQNbUbTyMAfdRS02aOswpqPbiWNtuVujZZ5NXe 4+QYlmssSqVjlTRcxyRWPNLkZaFsCSKpQvIJYfCLIwPXFhGzG1OjLfBh3DBUHcRJCmIYSfRpWsPYYwIL KfZCwgTNHeUML4ZLt9QDJlVCYlMG1FMuBhMRJkMhnb VHMzSIGoGAUhwb2WDJDkPMExQKA3ReXcGNHjLVWjVXtoMDStRDS5HRH1YBOiMOMpDE1YIiBlRUIdRLK1 BLYfIFAiXQFrlo6GLIAhDLXfXvndIZJfTUAlQRHxPZshBQHwJGF6OFJ2FPTtSZCkHG2DXoZaZSKfBJn8 VBZbQYIwTNLktj2FEBBzJAMiEGL0RORbAYIiXWAxRZ ujLIXwXWTeArTuBNZkMWIhBW3ZZwEcYZMrHLS4FtvzFNInGKSwfb7ZSZTpWIAxEBu6IjCxVYIwUAVmFW rlSNXpZTD7MYyoGJUnWJKqRH2ABbNhFJFxJSm5HHLeOJGgSIZcjk7OISVoNQKpLngeQrOvZSTvMQMvSU xlBELpPDMsIUp1EIQwTSMaSD6QDpAmKBKvPkM1ZWWm XIGnSXHhgf3YVWGsPMLmJZD0JzCqBVSlZSZrYPddBPJnFJImKMQqNZArEEDwLV1HAaKeSXFwNoM8BWEh PGWjOWBgqv1NFFLvHKIfGnsfUbGhZPQwMEKbFIimTCLxKTTpNME2WCZzLYCfVP6JUoVkCGNbEzIgMBEa VIZdGGYjrg1YIEXnOLTcYRSfWmDcTJKrGJOqYQzpTP RiSCW9YJK0YHGuCQQyMT7FUdHpXUQuYtErPKVxLRVvXROzhq6IXBFjPTCzMIKmSvZcRCLiUHBbZNsvMM OfVHE2SZFdEDUhYTZmXP5CSyPqBSKmKsF0LRYxOTYwYHRmku8PUVDbGGRkLeDmRVEjZNOqGVEqATbaCB WbWLA1EZJbGEWdYDKcCA7ZWqKaSWVnLfi6AKTxEJMu PMImti6GwVUflDsimb5XSKrKDq6AlHrsXHQ4KUfeSb4niYPzCfSlUXOKBf0HxhHkFIKbCZEPTAbsOBXi VJRdQ0CyYCHyTDH1GZTbMDO5PvgzBlBfHPIqTwqwFQZzQmI4KtY2GXX6VBI9PbQjUZD5FKanBXFqYvZ1 WuUvE7L9EFI+CI5yUOp+Kt4Ma2BsxlE5clZnNDmhPti5WU6KFPKYU2NRTf== ID Date Data Source [id number] 08/27/2019 10:18:58 PM EDT [facility] Name Value Range Interpretation Code Description Data Renita rce(s) Supporting Document(s) ED Provider Note [facility] BMRHWb1pWrOWPrQh95/ZKSlhIRZlu6AgVPvfTOy2QMfeVQPcT2QvBBM3xM9lRKG5YOoMWqAfQyLkEeTt lbm [file] gkLVMaQgG1QaOpBFAsAFXuQtrrOhG+QS1uWIp+Qg5Pq2AxeoB8inQyVBo0LRtvYg5ONISXZ4GFTa== ID Date Data Source [id number] 08/27/2019 10:04:17 PM EDT [facility] Name Value Range Interpretation Code Description Data Renita rce(s) Supporting Document(s) Consultation [facility] HDDCCw6nAyQHUjPh42/NFGraBTAag9IiWQmxXHx4NBmvHPHtX6AzJGN2nC2tLUD9IYvRWhVuFiJxBvAj lbm [file] Korean//Y62kZ9MUTgZtXNR7zqItaK8NBP5xf7TgWVa2RWSzy1XyJUowAPs3CEnlKICoI8Z9vFOkQMSlTK3A BAWmQE4IKEEtsiOgAyBqKFLISfIaAOQoNpQfq5AcB5TzNAQbDJQHNBszPCJwU80jUFjqJt79CZzbUWRb FvPjKEi1Bp2BOzDgWWThV57hjGHudSJcKMSkXYVZKa LyOQVeX3GljRHzFIfvU4PdZ0LcZT1qtJLsGY2nsARwR6EgZ1KwcurbTSAJTxEiPKExUKmhWSOfOnJsNM xzZSA+Bn4MRBX+Do7MUS8ae5HlCMjnVYPzUR2dmq8HETT0YR3XcTm2SAVcN2HqSDFiZAJuv0DgUB6KCF 6pxNheZIXaTT1+LOqbRQO5ciJsuC0XVDUuHyqxKwyY fd+q/Kuk3zik9iotjuYuUnDVRhVrpNCdsW15+8WZC2pSXoXYrj5/Fj2866NVSclKk+qZBqWJHVfZRAY8 yJc0qWMwN4Op+r/sqIjH7PcrG/8mZcdJ71xfrp/+xdllC/w22+9fq9I1xGScjO6lo188ctfmWFtOhhva l/mZ8++Sp0E3hu5G0s/nB0ezi/wHkCyqEE8n60fTlc /sk0n9qr+//dZ5+qjCJe51zGbGdYqqP+/Dwp+sVJkmfR3dqRDgRar6pDM9vD3vdzbihU79fR6mbveUbd rI9ugpxt3Q5ib/Ob9+0qT9b02pHrlpf57+/fYd4dlr/HK3Ksjul60Eqm19aNjxWNA7Axo97XFvdM/sGH EJ96sHB4SG6L7M/Pycu1Qr/7mZw0yy2BgcNIZajBPS GVXPML73/Qs5WBNgLje3ujGDGm2OsTepJ5tgSUz375OV8oqG211cnYC+line therapist+p5c0Oo0A6AWl8xGJrh0vM [file] ID Date Data Source [id number] 08/26/2019 08:04:11 PM [facility] Name Value Range Interpretation Code Description Data Renita rce(s) Supporting Document(s) Choriogonadotropin.beta subunit free [Units/volume] in Serum or Plasm a <5 [facility] (NOTE)Levels between 5 and 25 [IU]/L may indicate earlypregnancy and should be repeated after 48 hours. ID Date Data Source [id number] 08/26/2019 08:04:35 PM [facility] Name Value Range Interpretation Code Description Data Renita rce(s) Supporting Document(s) Leukocytes [#/volume] in Blood by Automated count 8.8 10*3/uL 4-10 [facility] Erythrocytes [#/volume] in Blood by Automated count 4.74 10*6/uL 4.1- 5.3 [facility] Hemoglobin [Mass/volume] in Blood 13.9 g/dL 11.5-15.5 [facility] Hematocrit [Volume Fraction] of Blood by Automated count 40.6 % 3 6-45 [facility] Erythrocyte mean corpuscular volume [Entitic volume] by Auto mated count 85.8 fL 80-96 [facility] Erythrocyte mean corpuscular hemoglobin [Entitic mass] by Automated count 29.3 pg 27-33 [facility] Erythrocyte mean corpuscular hemoglobin concentration [Mass/volume] by Automated count 34.1 g/dL 32.0-36.0 [facility] E[facility]th[facility] distribution width [Ratio] by Automated count 13.8 % 11.5-14.5 [facility] Platelets [#/volume] in Blood by Automated count 207 10*3/uL 150-400 [facility] Differential cell count method - Blood [facility] Neutrophils/100 leukocytes in Blood by Automated count 90 % [facility] Lymphocytes/100 leukocytes in Blood by Automated count 8 % [facility] Monocytes/100 leukocytes in Blood by Automated count 2 % [facility] Eosinophils/100 leukocytes in Blood by Automated count 0 % [facility] Basophils/100 leukocytes in Blood by Automated count 0 % [facility] Neutrophils [#/volume] in Blood by Automated count 7.90 10*3/uL 1.8-7 .0 H [facility] Lymphocytes [#/volume] in Blood by Automated count 0.70 10*3/uL 1.2-4 .0 L [facility] Monocytes [#/volume] in Blood by Automated count 0.18 10*3/uL 0-0.8 [facility] Eosinophils [#/volume] in Blood by Automated count 0.00 10*3/uL 0-0.5 [facility] Basophils [#/volume] in Blood by Automated count 0.01 10*3/uL 0-0.2 [facility] Nucleated erythrocytes/100 leukocytes [Ratio] in Blood by Automated count 0 /100{WBCs} 0-0 [facility] ID Date Data Source [id number] 08/26/2019 08:44:39 PM EDT [facility] Name Value Range Interpretation Code Description Data Renita rce(s) Supporting Document(s) Bicarbonate [Moles/volume] in Serum 25 mmol/L -29 [facility] Chloride [Moles/volume] in Serum or Plasma 104 mmol/L 98-107 [facility] Creatinine [Mass/volume] in Serum or Plasma 0.86 mg/dL 0.50-0.90 [facility] Glucose [Mass/volume] in Serum or Plasma 146 mg/dL 70-140 H [facility] Potassium [Moles/volume] in Serum or Plasma 3.8 mmol/L 3.4-5.1 [facility] Sodium [Moles/volume] in Serum or Plasma 140 mmol/L 136-145 [facility] Urea nitrogen [Mass/volume] in Serum or Plasma 12 mg/dL 6-20 [facility] Anion gap 3 in Serum or Plasma 11 mmol/L 8-15 [facility] Osmolality of Serum or Plasma by calculation 292 mosm/kg 275-300 [facility] Creatinine/Urea nitrogen [Mass Ratio] in Serum or Plasma 14 [facility] Calcium [Mass/volume] in Serum or Plasma 9.1 mg/dL 8.6-10.0 [facility] Glomerular filtration rate/1.73 sq M pre dicted among non-blacks [Volume Rate/Area] in Serum or Plasma by Creatinine-based formula (MDRD) >6 0 [facility] Glomerular filtration rate/1.73 sq M pre dicted among blacks [Volume Rate/Area] in Serum or Plasma by Creatinine-based formula (MDRD) >60 [facility] ID Date Data Source HCG, SERUM QUANTITATIVE 06/20/2019 12:00:00 AM EDT [facility] ([facility]) Name Value Range Interpretation Code Description Data Renita rce(s) Supporting Document(s) < 1.0 HCG, SERUM QUANTITATIVE eCW1 ( [facility]) ID Date Data Source [id number] 06/05/2019 12:06:37 PM EDT [facility] Name Value Range Interpretation Code Description Data Renita rce(s) Supporting Document(s) Progress Note [facility] RTBOHx2pLhOWCqHt00/ZSWcaGFMyg2ZtNMlqNRv7ADhrACJrY4MsGRR4mY6lIXE6YTcLOxZcKgSyQXE5 lbm [file] AgICAgICAgICAgICAgICAgICAgICAgICAgICAgICAgICAgICAgICAgICAgICAgICAgICAgICAgICAgIC YuMQZnFYZeWVTsACQpOBShNFVlZRZhYQXbCT1REOMwGHWtCBHgLZUuHDIoWHPoIOTpFVJjFQExJMNmYJ AgICAgICAgICAgICAgICAgICAgICAgICAgICAgICAg GDGmRVEvMOEgOEVlHAUmQPUfSUSyQXHyJWQtIVCxMHUdPLVgHD9OXATbMOTeAPLuWWUhCASuMKGdWDFa ICAgICAgICAgICAgICAgICAgICAgICAgICAgICAgICAgICAgICAgICAgICAgICAgICAgICAgICAgICAg PWUvGEXdLHPwIGQtTYZeJTJvPE3SRLBiUTBcOOBzID AgICAgICAgICAgICAgICAgICAgICAgICAgICAgICAgICAgICAgICAgICAgICAgICAgICAgICAgICAgIC WrNNDwBALlFUAjPGHmRCNzBXYxWLKcDPNhTBIwWT1JOPZgZZByEYNnYRDuOMNcASJpBHLsNIIgZSBxCK AgICAgICAgICAgICAgICAgICAgICAgICAgICAgICAg JQPvCRFmNVZcMHXiHEGfTKWbHRVrEEYfXIOyEONiMZCvXLKgODGfOT3FTKSeNHOpEREjODFzKGMpQLPg ICAgICAgICAgICAgICAgICAgICAgICAgICAgICAgICAgICAgICAgICAgICAgICAgICAgICAgICAgICAg TUHyVLFyCVJnATDoPNOkRTXrGXGfGR3JSXNmITDlBK AgICAgICAgICAgICAgICAgICAgICAgICAgICAgICAgICAgICAgICAgICAgICAgICAgICAgICAgICAgIC BwSCXrGMBjTQOqQLLgYRRyGOYmTFZkSDIiGBJzVMIyRP1KMQNhEMLuFFMsFLZiQHByAPXoGXQzWPSdWO AgICAgICAgICAgICAgICAgICAgICAgICAgICAgICAg FFSpZABbPYPeDXPhEHJjDHUgSKDwITRzALIcALYpDKXvSWRpFLNfYOGgKI8DENDjAOJyZTMsYFSfHWBp ICAgICAgICAgICAgICAgICAgICAgICAgICAgICAgICAgICAgICAgICAgICAgICAgICAgICAgICAgICAg PHHlIGKjZFLdQISgGERcESMcABMaIMIcQE8UCWNkHX AgICAgICAgICAgICAgICAgICAgICAgICAgICAgICAgICAgICAgICAgICAgICAgICAgICAgICAgICAgIC WbHOMmNKXdXBZnRHDvNXZfZZYsQWHiYVEmSGPrKMHyYTKbFM8ZWS93aKXme0E0CRFhCQ5epyf/Pg0KDQ kadhKjfCPtYZ3ZKaBqNK4lvo5FSfLvLG7uyz8MQHrF HeOrP9P4jWJuGKCiBJWVWzVwW79tKAtmDl56OOpbULQtZtQvYDm5Ik4RAlXbL1ejSFEyMlC9FJTvCgM7 RJBtKvG5GKGeFiEfSRyhER3Wk9SwoPYmOEl+Qx5CAP3pn3IgRXvuKsJoHA0pyn1IXYbYTxHiU8JeeaZ6 HOP4VFCtHf9RVPUtBNWfcIWkMHCwKCGCElQwG7GlzV 09FVGVCf9+JJxjexMzQvgWEsE2HBYyq2BuVRx4AE4ZPRTbFBv1iJSrXYKnS5Gez3ZrZh03UGUlNzpkVS TfPGcoOY6cC3syU7qrQB8OKKA1PEKdCO8wYSPaUZB0TeUlFIMKXQ9BPCKjZOQnsNToKTOzKJBIUH2COL rxAYX1NUClrpNurZBxWOmmAE3NWRZclfZxXkXnKHHS DQo+Fa1FSA2ff7QvUCszOUDcGF7viv7BDVtLUcErL6H2mKYmO5T3UBkdGn4VRLBnBCFmDeAzQTEAPIdp OJ5IGZ8vuyA7CK0KrWEjEQFvOEWutEHqQUd3V41tsSRiDGulKA9YVEC+Kena+Kl4XYPVrUBVnSJTnQfGk OAPOFgNnH3VjQ8NJg4MaE9FbAH86uHioguOyNYorOO 0ARG2bHIXzVBFFZD1YwXWykZ6qycWnOkLjQDSPYuSlE16axUJxBBJuVEFkPOVcYh0UZZIgX3KbubPvlE ofliFwMVNcARHFXV9RWOnpwyNwvAGljQthTU24yIcnZD4YXq3LJcWbNR2gjp8WpMEiXh1CREVcKi1ADT CxVGGxPLDuXWM7PGTmJcOsSXfdQWKtBLKpIQH4HZTn PGUmNF2OTtIpBZDfHdA1PUYgNGIwCZOxvh5HWAHyPJNtKYX1FNEeBDAiNSSrICilILQsQMEuZEW3MASb JYCvXM9IUuBwDTTsVDVsCMIpAQTjOWOvhf9OSKPnDLScGXB0ALWmINOqNGNzDNthVNSwMOP2LZIrDIHe XVLeVG3INrPrHCClBVd1EwIkDJEbRSPuvt1LLEMaIZ VgRAR8MuXoFTHeNXMuOBzsPPQcQZWpFwhfSUVkRXKkMF0ZRmFrCFLtHBE0DFGkKIYxYNSxoy7TEXXzAN WcHkpwWoTzPYYfXMCfJXnwRCQoQXNbWGKpDKJnIYBxGH9CGsLkMMSaOIS2YyfiNIRhHDKasm6WYXCxCQ KvARC8SWUhQSBcQIZrKQfuQSPsXTH3QrH7PMRgHORg IO8TMzNxEAKvCvP1LNczNGQmFLGnyi7ULSDmZIRdBcXjUDCdSUHvCFWdXBevRDZeEWC0MoXwHZDwONUo CI9KZuGrBCLeCjR6JEOwHCTdRGVnoq6ETDZkABFhChscOCFiTJGaCQCdODdfAFKbNDR1QNDcCPMyMDMy PP8RClXdKOOcXko5PSGxIDZaYOKjop3SWMLgPNZyEJ H1WNSaUNRtUEVvNZnmVPGcSZJ6Mxg3APIuVXFdFI0ODbBaGOhnWYXCUsa2ESnqR6e3TIRfKa2FN1Tav6 TgFwQfVUDKLYlmII4ugaEwYSQvHp8TM1lALvi2WyIrNCXtSmHpBgD5PcHyNnFnGECvGEY4TsJsMUT2DG 1cYNpeTIH2W9TqJYVcNmUaK9GsREGxKTDvUHPaG4Zf NNCbWpXzJS7YGc8TUxN4ZRV5tXBaKp2JRrsxUBQESrGfZB3PZSv= Procedure Social History Code Duration Value Status Description Data Source(s ) Smoking 01/16/2020 12:00:00 AM EST Current Smoker completed Curre nt Smoker eCW1 ([facility]) Smoking 01/16/2020 12:00:00 AM EST Current Smoker completed Curre nt Smoker eCW1 ([facility]) Smoking 01/16/2020 12:00:00 AM EST Current Smoker completed Curre nt Smoker eCW1 ([facility]) Smoking 01/16/2020 12:00:00 AM EST Current Smoker completed Curre nt Smoker eCW1 ([facility]) Smoking 01/16/2020 12:00:00 AM EST Current Smoker completed Curre nt Smoker eCW1 ([facility]) Alcohol intake 08/30/2019 12:00:00 AM EDT Current non-d diane of alcohol (finding) completed Current non-drinker of alcohol (finding) [facility] Cigarettes smoked current (pack per day) - Reported 08/30/19 12:00:00 AM EDT UNK completed [facility] Smoking 08/30/2019 12:00:00 AM EDT Light tobacco smoker comple myron Light tobacco smoker [facility] Alcohol intake 08/26/2019 12:00:00 AM EDT Current non-d diane of alcohol (finding) completed Current non-drinker of alcohol (finding) [facility] Cigarettes smoked current (pack per day) - Reported 08/26/19 12:00:00 AM EDT UNK completed [facility] Smoking 08/26/2019 12:00:00 AM EDT Light tobacco smoker comple myron Light tobacco smoker [facility] Vital Signs ID Date Data Source [id number] 11/28/2019 08:40:22 AM [facility] Name Value Range Interpretation Code Description Data Source(s) WEIGHT RECORDED 155 lb 155 lb [facility] Body height Measured 60 in 60 in [facility] WEIGHT RECORDED 155 lb 155 lb [facility] Body height Measured 60 in 60 in [facility] ID Date Data Source [id number] 06/05/2019 12:06:37 PM EDT [facility] Name Value Range Interpretation Code Description Data Source(s) WEIGHT RECORDED 150 lb 150 lb [facility] Body height Measured 60 in 60 in [facility] Patient Treatment Plan of Care Planned Activity Planned Date Details Description Data Source (s) Omeprazole 20 MG Delayed Release Oral Capsule 01/31/2020 12:00:00 A M EST eCW1 ([facility]) Omeprazole 20 MG Delayed Release Oral Capsule 01/31/2020 12:00:00 A M EST eCW1 ([facility]) Omeprazole 20 MG Delayed Release Oral Capsule 01/31/2020 12:00:00 A M EST eCW1 ([facility]) Fluconazole 150 MG Oral Tablet 01/17/2020 12:00:00 AM EST eCW1 ([facility]) Fluconazole 150 MG Oral Tablet 01/17/2020 12:00:00 AM EST eCW1 ([facility]) Fluconazole 150 MG Oral Tablet 01/17/2020 12:00:00 AM EST eCW1 ([facility]) Fluconazole 150 MG Oral Tablet 01/17/2020 12:00:00 AM EST eCW1 ([facility]) Fluconazole 150 MG Oral Tablet 01/17/2020 12:00:00 AM EST eCW1 ([facility]) 24 HR quetiapine 50 MG Extended Release Oral Tablet 01/16/20 12:00:00 AM EST eCW1 ([facility]) Levofloxacin 750 MG Oral Tablet 01/16/2020 12:00:00 AM EST eCW1 ([facility]) 24 HR quetiapine 50 MG Extended Release Oral Tablet 01/16/20 12:00:00 AM EST eCW1 ([facility]) Levofloxacin 750 MG Oral Tablet 01/16/2020 12:00:00 AM EST eCW1 ([facility]) 24 HR quetiapine 50 MG Extended Release Oral Tablet 01/16/20 12:00:00 AM EST eCW1 ([facility]) Levofloxacin 750 MG Oral Tablet 01/16/2020 12:00:00 AM EST eCW1 ([facility]) Levofloxacin 750 MG Oral Tablet 01/16/2020 12:00:00 AM EST eCW1 ([facility]) 24 HR quetiapine 50 MG Extended Release Oral Tablet 01/16/20 12:00:00 AM EST eCW1 ([facility]) Levofloxacin 750 MG Oral Tablet 01/16/2020 12:00:00 AM EST eCW1 ([facility]) 24 HR quetiapine 50 MG Extended Release Oral Tablet 01/16/20 12:00:00 AM EST eCW1 ([facility]) letrozole 2.5 MG Oral Tablet 01/01/2020 12:00:00 AM EST eCW1 ([facility]) letrozole 2.5 MG Oral Tablet 01/01/2020 12:00:00 AM EST eCW1 ([facility]) 15 ML natalizumab 20 MG/ML Injection 08/30/2019 12:00:00 AM [facility] Sumatriptan 50 MG Oral Tablet 08/30/2019 12:00:00 AM [facility] Fluoxetine 20 MG Oral Capsule 08/30/2019 12:00:00 AM [facility] methylPREDNISolone Sodium Succ 1000 MG I njection Solution Reconstituted (SOLU-MEDROL) 08/27/2019 12:00:00 AM [facility] Omeprazole 20 MG Delayed Release Oral Capsule 06/05/2019 12:00:00 A M [facility] fingolimod 0.5 MG Oral Capsule 11/26/2018 12:00:00 AM [facility] Riboflavin 100 MG Oral Tablet 09/12/2018 12:00:00 AM [facility] Magnesium 500 MG TABS 09/12/2018 12:00:00 AM [facility] Ergocalciferol [id number] UNT Oral Capsule 03/15/2018 12:00:00 AM [facility] gabapentin 100 MG Oral Capsule 03/15/2018 12:00:00 AM [facility] 24 HR Oxybutynin chloride 10 MG Extended Release Oral Tablet 03/15/2018 12:00:00 AM [facility] Prednisone 50 MG Oral Tablet [facility] 24 HR Bupropion Hydrochloride 150 MG Extended Release Oral Tablet [facility] Ethinyl Estradiol 0.035 MG / norgestimate 0.25 MG Oral Tablet [facility]
[2020-03-15] MEDS ORDERED: SULF1TAB93 (16:38)
[2020-03-15] MEDS ORDERED: VALA1TAB5 PO (17:16)
--- OUTSIDE RECORDS SUMMARY | 2020-03-15 17:23 | CCD ---
Author Author [facility] Organization [facility] Address Unknown Phone Unavailable Care Team Providers Care Rn Employee Health Name Role Phone Sarath MONTES . Unavailable [...] Unavailable Unavailable SimioneDonal conde MD Unavailable Unavailable SimioneDonla conde MD Unavailable Unavailable ElijahioneDonal conde MD [...] Madison MD Unavailable Unavailable KIRCH, M JENNIE ROLL FORMING SUPERVISOR Unavailable Unavailable KIRCH, M JENNIE ROLL FORMING SUPERVISOR Unavailable Unavailable KIRCH, M JENNIE ROLL FORMING SUPERVISOR Unavailable Unavailable KIRCH, M JENNIE ROLL FORMING SUPERVISOR Unavailable Unavailable KIRCH, M JENNIE ROLL FORMING SUPERVISOR Unavailable Unavailable KIRCH, M JENNIE ROLL FORMING SUPERVISOR Unavailable Unavailable KIRCH, M JENNIE ROLL FORMING SUPERVISOR Unavailable Unavailable KIRCH, M JENNIE ROLL FORMING SUPERVISOR Unavailable Unavailable KIRCH, M JENNIE ROLL FORMING SUPERVISOR Unavailable Unavailable KIRCH, M JENNIE ROLL FORMING SUPERVISOR Unavailable Unavailable KIRCH, M JENNIE ROLL FORMING SUPERVISOR Unavailable Unavailable KIRCH, M JENNIE ROLL FORMING SUPERVISOR Unavailable Unavailable KIRCH, M JENNIE ROLL FORMING SUPERVISOR Unavailable Unavailable KIRCH, M JENNIE ROLL FORMING SUPERVISOR Unavailable Unavailable KIRCH, M JENNIE ROLL FORMING SUPERVISOR Unavailable Unavailable KIRCH, M JENNIE ROLL FORMING SUPERVISOR Unavailable Unavailable KIRCH, M JENNIE ROLL FORMING SUPERVISOR Unavailable Unavailable KIRCH, M JENNIE ROLL FORMING SUPERVISOR Unavailable Unavailable KIRCH, M JENNIE ROLL FORMING SUPERVISOR Unavailable Unavailable KIRCH, M JENNIE ROLL FORMING SUPERVISOR Unavailable Unavailable KIRCH, M JENNIE ROLL FORMING SUPERVISOR Unavailable Unavailable KIRCH, M JENNIE ROLL FORMING SUPERVISOR Unavailable Unavailable KIRCH, M JENNIE ROLL FORMING SUPERVISOR Unavailable Unavailable KIRCH, M JENNIE ROLL FORMING SUPERVISOR Unavailable Unavailable KIRCH, M JENNIE ROLL FORMING SUPERVISOR Unavailable Unavailable KIRCH, M JENNIE ROLL FORMING SUPERVISOR Unavailable Unavailable KIRCH, M JENNIE ROLL FORMING SUPERVISOR Unavailable Unavailable KIRCH, M JENNIE ROLL FORMING SUPERVISOR Unavailable Unavailable KIRCH, M JENNIE ROLL FORMING SUPERVISOR Unavailable Unavailable KIRCH, M JENNIE ROLL FORMING SUPERVISOR Unavailable Unavailable KIRCH, M JENNIE ROLL FORMING SUPERVISOR Unavailable Unavailable KIRCH, M JENNIE ROLL FORMING SUPERVISOR Unavailable Unavailable KIRCH, M JENNIE ROLL FORMING SUPERVISOR Unavailable Unavailable KIRCH, M JENNIE ROLL FORMING SUPERVISOR Unavailable Unavailable KIRCH, M JENNIE ROLL FORMING SUPERVISOR Unavailable Unavailable KIRCH, M JENNIE ROLL FORMING SUPERVISOR Unavailable Unavailable KIRCH, M JENNIE ROLL FORMING SUPERVISOR Unavailable Unavailable KIRCH, M JENNIE ROLL FORMING SUPERVISOR Unavailable Unavailable KIRCH, M JENNIE ROLL FORMING SUPERVISOR Unavailable Unavailable KIRCH, M EJNNIE ROLL FORMING SUPERVISOR Unavailable Unavailable KIRCH, M JENNIE ROLL FORMING SUPERVISOR Unavailable Unavailable KIRCH, M JENNIE ROLL FORMING SUPERVISOR Unavailable Unavailable KIRCH, M JENNIE ROLL FORMING SUPERVISOR Unavailable Unavailable KIRCH, M JENNIE ROLL FORMING SUPERVISOR Unavailable Unavailable KIRCH, M JENNIE ROLL FORMING SUPERVISOR Unavailable Unavailable KIRCH, M JENNIE ROLL FORMING SUPERVISOR Unavailable Unavailable KIRCH, M JENNIE ROLL FORMING SUPERVISOR Unavailable Unavailable KIRCH, M JENNIE ROLL FORMING SUPERVISOR Unavailable Unavailable KIRCH, M JENNIE ROLL FORMING SUPERVISOR Unavailable Unavailable KIRCH, M JENNIE ROLL FORMING SUPERVISOR Unavailable Unavailable KIRCH, M JENNIE ROLL FORMING SUPERVISOR Unavailable Unavailable GRIMES-Sekuterski, E Bessy PA Unavailable [...] Unavailable Joeydylon, E Bessy PA Unavailable Joeydylon, Donla Bessy PA Unavailable GRIMESKeithlucillejenniferDonal osborne Bessy PA [...] PA Unavailable GRIMES-kuterski, E Bessy PA Unavailable [phone] Re-disclosure Warning The records that you are [...] is protected by Article 27-F of the [facility] Public Health law. If you continue you may have access to information: Regarding HIV / AIDS; Provided by facilities licensed or operated by the [facility] Office of Mental Health; or Provided by the [facility] Office for People With Developmental Disabilities. If such information is present, then the following [facility] mandated warning applies: This information has been [...] law may result in a fine or assisted sentence or both. A general authorization for the release of medical or other information is NOT sufficient authorization for further disc losure. Family History Family Member Name Family Member Gender Family Member Status Date o f Status Description Data Source(s) Unknown Unknown Problem MEDENT ([facility]) Encounters Encounter Providers Location Date Indications Data Source(s ) Unknown [address] [facility] [address] 02/18/2020 12:00:00 AM EST eCW1 ([facility]) Unknown [address] [facility] [place] [address] 02/06/2020 12:00:00 AM EST eCW1 ([facility]) Unknown [address] [facility] [place] [address] 01/30/2020 12:00:00 AM EST eCW1 ([facility]) Unknown [address] [facility] [place] [address] 01/21/2020 12:00:00 AM EST eCW1 ([facility]) Unknown [address] [facility] [place] [address] 01/16/2020 12:00:00 AM EST eCW1 ([facility]) Unknown [address] [facility] [place] [address] 01/02/2020 12:00:00 AM EST eCW1 ([facility]) Unknown [address] [facility] [place] [address] 01/01/2020 12:00:00 AM EST eCW1 ([facility]) Outpatient Attender: Bessy MCWILLIAMS 0 12:00:00 AM [facility] Outpatient Attender: JENNIE SIMMS NP 12/05/2019 12:00:00 A M [facility] [place] [address] [facility] [address] 12/04/2019 12:00:00 AM EDT eCW1 ([facility]) Outpatient Attender: Bessy MCWILLIAMS [id number] 08/30/2019 12:00:00 AM EDT - 08/30/2019 09:43:53 AM EDT [facility] Multiple sclerosis Emergency Attender: Josephine Madison MDAttender: Soraya MONTES . AndreinaA-ERMADULT 08/26/2019 12:00:00 AM EDT - 08/27/2019 12:22:00 AM ED T [facility] Multiple sclerosis Patient discharged. Unknown [address] [facility] [address] 08/13/2019 12:00:00 AM EDT eCW1 ([facility]) [place] [address] [facility] [address] 06/21/2019 12:00:00 AM EDT eCW1 ([facility]) [facility] [place] [address] [facility] [address] 06/20/2019 12:00:00 AM EDT eCW1 ([facility]) Outpatient Attender: JENNIE SIMMS NP [id number] 2019 12:00:00 AM EDT - 06/05/2019 09:08:54 AM [facility] Outpatient Attender: JENNIE SIMMS NP 03/19/2019 12:00:00 A M [facility] Medications Medication Brand Name Start Date Product Form Dose Route Admi nistrative Instructions Pharmacy Instructions Status Indications Reaction Description Data Source(s) Omeprazole 20 MG Delayed Release Oral Capsule Omeprazole 20 MG 01/31/2020 12:00:00 AM EST active Omeprazo le 20 MG eCW1 ([facility]) Omeprazole 20 MG Delayed Release Oral Capsule Omeprazole 20 MG 01/31/2020 12:00:00 AM EST active Omeprazo le 20 MG eCW1 ([facility]) Omeprazole 20 MG Delayed Release Oral Capsule Omeprazole 20 MG 01/31/2020 12:00:00 AM EST active Omeprazo le 20 MG eCW1 ([facility]) Fluconazole 150 MG Oral Tablet Fluconazole 150 MG 01/17/2020 12:00: 00 AM EST 1.0 {tablet} active Fluconazole 150 MG eCW1 ([facility]) Fluconazole 150 MG Oral Tablet Fluconazole 150 MG 01/17/2020 12:00: 00 AM EST 1.0 {tablet} active Fluconazole 150 MG eCW1 ([facility]) Fluconazole 150 MG Oral Tablet Fluconazole 150 MG 01/17/2020 12:00: 00 AM EST 1.0 {tablet} active Fluconazole 150 MG eCW1 ([facility]) Fluconazole 150 MG Oral Tablet Fluconazole 150 MG 01/17/2020 12:00: 00 AM EST 1.0 {tablet} active Fluconazole 150 MG eCW1 ([facility]) Fluconazole 150 MG Oral Tablet Fluconazole 150 MG 01/17/2020 12:00: 00 AM EST 1.0 {tablet} active Fluconazole 150 MG eCW1 ([facility]) Levofloxacin 750 MG Oral Tablet Levofloxacin 750 MG 01/16/2020 1 2:00:00 AM EST 1.0 {tablet} active Levofloxaci n 750 MG eCW1 ([facility]) 24 HR quetiapine 50 MG Extended Release Oral Tablet QUEtiapine Fumarate ER 50 MG QUEtiapine Fumarate ER 50 MG 01/16/2020 12:00:00 AM EST 1.0 {tablet_in_the_evening} active QUEtiapi ne Fumarate ER 50 MG eCW1 ([facility]) 24 HR quetiapine 50 MG Extended Release Oral Tablet QUEtiapine Fumarate ER 50 MG QUEtiapine Fumarate ER 50 MG 01/16/2020 12:00:00 AM EST 1.0 {tablet_in_the_evening} active QUEtiapi ne Fumarate ER 50 MG eCW1 ([facility]) Levofloxacin 750 MG Oral Tablet Levofloxacin 750 MG 01/16/2020 1 2:00:00 AM EST 1.0 {tablet} active Levofloxaci n 750 MG eCW1 ([facility]) Levofloxacin 750 MG Oral Tablet Levofloxacin 750 MG 01/16/2020 1 2:00:00 AM EST 1.0 {tablet} active Levofloxaci n 750 MG eCW1 ([facility]) 24 HR quetiapine 50 MG Extended Release Oral Tablet QUEtiapine Fumarate ER 50 MG QUEtiapine Fumarate ER 50 MG 01/16/2020 12:00:00 AM EST 1.0 {tablet_in_the_evening} active QUEtiapi ne Fumarate ER 50 MG eCW1 ([facility]) Levofloxacin 750 MG Oral Tablet Levofloxacin 750 MG 01/16/2020 1 2:00:00 AM EST 1.0 {tablet} active Levofloxaci n 750 MG eCW1 ([facility]) Levofloxacin 750 MG Oral Tablet Levofloxacin 750 MG 01/16/2020 1 2:00:00 AM EST 1.0 {tablet} active Levofloxaci n 750 MG eCW1 ([facility]) 24 HR quetiapine 50 MG Extended Release Oral Tablet QUEtiapine Fumarate ER 50 MG QUEtiapine Fumarate ER 50 MG 01/16/2020 12:00:00 AM EST 1.0 {tablet_in_the_evening} active QUEtiapi ne Fumarate ER 50 MG eCW1 ([facility]) 24 HR quetiapine 50 MG Extended Release Oral Tablet QUEtiapine Fumarate ER 50 MG QUEtiapine Fumarate ER 50 MG 01/16/2020 12:00:00 AM EST 1.0 {tablet_in_the_evening} active QUEtiapi ne Fumarate ER 50 MG eCW1 ([facility]) letrozole 2.5 MG Oral Tablet Letrozole 2.5 MG Letrozole 2.5 MG 01/01/2020 12:00:00 AM EST 2.0 {tablet} active Le trozole 2.5 MG eCW1 ([facility]) letrozole 2.5 MG Oral Tablet Letrozole 2.5 MG Letrozole 2.5 MG 01/01/2020 12:00:00 AM EST 2.0 {tablet} active Le trozole 2.5 MG eCW1 ([facility]) letrozole 2.5 MG Oral Tablet Letrozole 2.5 MG Letrozole 2.5 MG 01/01/2020 12:00:00 AM EST 2.0 {tablet} active Le trozole 2.5 MG eCW1 ([facility]) letrozole 2.5 MG Oral Tablet Letrozole 2.5 MG Letrozole 2.5 MG 01/01/2020 12:00:00 AM EST 2.0 {tablet} active Le trozole 2.5 MG eCW1 ([facility]) letrozole 2.5 MG Oral Tablet Letrozole 2.5 MG Letrozole 2.5 MG 01/01/2020 12:00:00 AM EST 2.0 {tablet} active Le trozole 2.5 MG eCW1 ([facility]) letrozole 2.5 MG Oral Tablet Letrozole 2.5 MG Letrozole 2.5 MG 01/01/2020 12:00:00 AM EST 2.0 {tablet} active Le trozole 2.5 MG eCW1 ([facility]) letrozole 2.5 MG Oral Tablet Letrozole 2.5 MG Letrozole 2.5 MG 01/01/2020 12:00:00 AM EST 2.0 {tablet} active Le trozole 2.5 MG eCW1 ([facility]) 15 ML natalizumab 20 MG/ML Injection Jeanna alizumab 300 MG/15ML Intravenous Concentrate (Tysabri) Natalizumab 300 MG/15ML Intravenous Concentrate (Tysab ri) 08/30/2019 12:00:00 AM EDT 300 mg Intravenous active M ultiple sclerosis Inject 15 mLs into the vein every 28 (twenty-eight) days [facility] Multiple sclerosis Sumatriptan 50 MG Oral Tablet SUMAtriptan Succinate 50 MG Oral Tablet (Imitrex) SUMAtriptan Succinate 50 MG Oral Tablet (Imitrex) 08/30/2019 12:00:00 AM EDT 50 mg Oral active Other complicated headache syn dromeMultiple sclerosis Take 1 tablet by mouth as needed for MigraineMdd: 1 [facility] Other complicated headache syndrome Multiple sclerosis Fluoxetine 20 MG Oral Capsule FLUoxetine HCl 20 MG Ora l Capsule (PROzac) FLUoxetine HCl 20 MG Oral Capsule (PROzac) 08/30/2019 12:00:00 AM EDT 20 mg Oral active Take 1 capsule by mo uth daily [facility] methylPREDNISolone Sodium Succ 1000 MG I njection Solution Reconstituted (SOLU-MEDROL) 50343-080-12 08/27/2019 12:00:00 AM EDT 1000 mg Intravenou s aborted Exacerbation of multiple sclerosis Injec t 1,000 mg into the vein daily for 4 doses [facility] Exacerbation of multiple sclerosis methylPREDNISolone sodium succinate (KAMARI U-MEDROL) 1,000 mg in sodium chloride 0.9 % 100 mL IVPB 08/26/2019 09:45:00 PM EDT 1000 mg Intravenous completed 1,000 mg, Intravenous, Once, 08/26/19 at 2145, For 1 dose [facility] Medication administered onsite Omeprazole 20 MG Delayed Release Oral Ca psule Omeprazole 20 MG Oral Capsule Delayed Release Omeprazole 20 MG Oral Capsule Delayed Release 06/05/19 20 12:00:00 AM EDT 20 mg Oral aborted Take 1 capsule by mouth daily [facility] fingolimod 0.5 MG Oral Capsule Fingolimod HCl (GILENYA ) 0.5 MG CAPS Fingolimod HCl (GILENYA) 0.5 MG CAPS 11/26/2018 12:00:00 AM EDT 0.5 mg Oral aborted Multiple sclerosis Take 1 capsule by mouth daily [facility] Multiple sclerosis Magnesium 500 MG TABS [id number] 09/12/2018 12:00:00 AM EDT 500 mg Oral aborted Multiple sclerosis Take 500 mg by mouth daily [facility] Multiple sclerosis Riboflavin 100 MG Oral Tablet Riboflavin 100 MG TABS Ribofla leandra 100 MG TABS 09/12/2018 12:00:00 AM EDT 100 mg Oral aborted Multi ple sclerosis Take 100 mg by mouth daily [facility] Multiple sclerosis gabapentin 100 MG Oral Capsule gabapentin (NEURONTIN) 100 MG capsule gabapentin (NEURONTIN) 100 MG capsule 03/15/2018 12:00:00 AM EST 100 mg Oral active Take 1 capsule by mouth Three times [facility] Ergocalciferol 87139 UNT Oral Capsule vi tamin D (ERGOCALCIFEROL) 08274 units capsule vitamin D (ERGOCALCIFEROL) 80324 units capsule 019 12:00:00 AM EST 60150 U Oral aborted Take 1 capsule by mouth every 7 (seven) days [facility] 24 HR Oxybutynin chloride 10 MG Extended Release Oral Tablet oxybutynin (DITROPAN XL) 10 MG 24 hr tablet oxybutynin (DITROPAN XL) 10 MG 24 hr tablet 03/15/2018 12:00:00 AM EST 10 mg Oral active Multi ple sclerosis Take 1 tablet by mouth daily [facility] Multiple sclerosis Ethinyl Estradiol 0.035 MG / norgestimat e 0.25 MG Oral Tablet norgestimate- ethinyl estradiol (SPRINTEC 28) 0.25-35 MG-MCG per tablet norgestimate-ethinyl estradiol (SPRINTEC 28) 0.25-35 MG-MCG per tablet 1 {tbl} Oral aborted Take 1 tablet by mouth daily [facility] Prednisone 50 MG Oral Tablet predniSONE 50 MG Oral Tab let (DELTASONE) predniSONE 50 MG Oral Tablet (DELTASONE) 500 mg Oral aborted Take 500 mg by mouth daily [facility] 24 HR Bupropion Hydrochloride 150 MG Ext ended Release Oral Tablet buPROPion (WELLBUTRIN XL) 150 MG 24 hr tablet buPROPion (WELLBUTRIN XL) 150 MG 24 hr tablet 150 mg Oral aborted Take 150 mg by m outh every morning [facility] Insurance Providers Payer name Policy type / Coverage type Policy ID Covered alliance party ID Covered alliance party's relationship to bravo Policy Bravo Plan Information EXCELLUS BC-BS PPO 306 [id number] SP [id number] SELF PAY ONLY [id number] SP [id number] EXCELLUS BCBS B [id number] S [id number] [place] P[place] 302/307 [id number] SP [id number] [place] BC-BS PPO 306 [id number] SP [id number] [facility] [id number] SP [id number] [facility] [id number] SP [id number] OTHER W.C.EMPLOYER [id number] SP [id number] EXCELLUS H [id number] Self [id number] [place] PPO 302/307 [id number] SP [id number] BC[place] 306/806 [id number] SP [id number] AETNA U [id number] Child [id number] BC[place] 306/806 [id number] SP [id number] [employer]ET[employer] [facility] [place] [id number] SP [id number] SELF PAY ONLY UNAVAILABLE SP UNAV AILABLE AETNA U [id number] Child [id number] [employer] PPO 302/307 [id number] SP [id number] [employer] [place] [id number] FA2 [id number] [employer] [place] [id number] SP [id number] ANSI-Commercial [id number] ANSI-Commercial [id number] ANSI-Commercial [id number] ANSI-Commercial [id number] AETNA U [id number] Child [id number] MVP HM [id number] EXCELLUS C [id number] Self [id number] [employer]ET[employer] LIFE INSURANCE CO [id number] Commercial Insu kerry [id number] [employer] [place] O [id number] S [id number] BCBS [place] PPO 302/307 [id number] SP [id number] AETNA U [id number] Child [id number] MVP EXCHANGE U [id number] Self [id number] [employer] [place] [id number] [employer] TX [id number] SP [id number] [employer] [place] [id number] FA2 [id number] [employer] [place] O [id number] S [id number] MVP [id number] SP [id number] MVP MCDHMO [id number] SP [id number] MVP EXCHANGE U [id number] Self [id number] Cigna/Conn Gen/MVP Commercial [id number] Self [id number] [facility] [id number] SP [id number] MVP EXCHANGE U [id number] Self [id number] MVP H [id number] Self [id number] MVP EXCHANGE U [id number] Self [id number] MVP H [id number] Self [id number] [facility] [id number] SP [id number] MVP HM [id number] 18 [id number] MVP Health Maintenance Organization (HMO) Se lf [employer] [facility] [place] [id number] FA2 [id number] [employer] Medigap Part B Family Dependen t [employer] Life Ins Co Commercial Family Dependent [employer] [place] O [id number] C [id number] SELF PAY UNAVAILABLE UNAVAILA BLE [employer] [place] [id number] SP [id number] AETNA LIFE INS CO -O/P [id number] 18 [id number] BCBS [facility] 010/510 [id number] [id number] Problems, Conditions, and Diagnoses Code Display Name Description Problem Type Effective Dates Data Source(s) F31.81 [id number] Bipolar II disorder Problem 01/16/2020 12:00 :00 AM EST eCW1 ([facility]) 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 Infertility associated with anovulation Problem 01/01/2020 12:00:00 AM EST eCW1 ([facility]) N92.6 [id number] Late menses Problem 06/20/2019 12:00:00 AM E DT eCW1 ([facility]) N92.6 [id number] Late menses Problem 06/20/2019 12:00:00 AM E DT eCW1 ([facility]) G44.59 Other complicated headache syndrome Other compli cated headache syndrome Diagnosis 08/30/2019 07:58:05 AM [facility] R47.02 Dysphasia Dysphasia Diagnosis 08/26/2019 06:27:52 PM ED [facility] speech problem/MS speech problem/MS Diagnosis 08/26/2019 06:27:52 PM [facility] Surgeries/Procedures Procedure Description Date Indications Data Source(s) GONADOTROPIN CHORIONIC QUANTITATIVE POCT ISTAT BHCG Routine 08/26/2019 7:45 PM EDT 08/26/2019 11:45:00 PM EDT [facility] BLOOD COUNT COMPLETE AUTO&AUTO DIFRNTL WBC COUNT CBC AND DIFFER ENTIAL STAT 08/26/2019 7:44 PM EDT 08/26/2019 11:44:00 PM [facility] BASIC METABOLIC PANEL CALCIUM TOTAL BASIC METABOLIC PANEL STAT 08/26/2019 7:44 PM EDT 08/26/2019 11:44:00 PM EDT [facility] Results ID Date Data Source [id number] 08/30/2019 09:22:01 AM EDT [facility] Name Value Range Interpretation Code Description Data Renita rce(s) Supporting Document(s) Progress Note [facility] HBDQXe0jVsNHZwAm72/BUAnmWLZiq3AqFGjySMy5UVhxZFWvO0IjGBE8tL5jVNN0HJlTMgNeUoYfHeCk lbm [file] VpFcI8E1ZNC+LK2dCUq+Eh1Fm3GmanZ1feJhEOapBdh3GX2ZYAHFF9DSFy== ID Date Data Source [id number] 08/27/2019 10:18:58 PM EDT [facility] Name Value Range Interpretation Code Description Data Renita rce(s) Supporting Document(s) ED Provider Note [facility] VRLJQk7uOzBCFjGg54/KBRjrMTCsm4SkTSbcSEw3PFsaTDHdF9FvREU8xI3sZFU5CUvHDaVyQxZiLcWq lbm [file] tuALRdMpA1LtBxXSBgHQZtUbydWkU+PH9pIId+Mf1Lg1LfrdO3wrSfPRn7VKfjMa7IGPTGE0JSTf== ID Date Data Source [id number] 08/27/2019 10:04:17 PM EDT [facility] Name Value Range Interpretation Code Description Data Renita rce(s) Supporting Document(s) Consultation [facility] ECNRGn6eTfDZKxAp06/GYMldRTByx7ErPIktNOp6BVbaCJSbB2ReDDD2eE4oXOF0JDzOMvCoKxJuWkZi lbm [file] Indonesian//F47zQ8HBAyKwXCQ0vhFrcI6LSS5xr8UgHBg5CLJyc1AnVKmrBWm2PXnqKEPqM1A4zRIgJWPvFI9S FYOlSW2YZBOytfIjYsYpPPUIXiOlLXXxPjXxf5KeO1FsVVIdDHUBWKoiFPHkD23tMSysWq59MCylRYSf FsWiSQe7Bw9PKaOvSFQwD99nlOGykQOyDKHwTEYLGo TrYGNgZ5XttQUyNRfeH8BtH1LdPI5whXRvET4tsZUpH0XtJ5SbvidjFHFJAkEkLJHjHRyjHYPmLmNaBY xzZSA+Ik1HNCT+Nt6SAM1wk2WnRDdbBJGjBU6hvf3PXLJ6TM8MfLs0ASWwV3KkESWbILHyh3GmVZ4UOW 3hcZazWFSiQN6+UIagLTM7qpJtbQ0JDDJyYbvkDvsR fd+q/Zuw9csb4kbyfxAnQnLLKhOzoNIdtW04+4YYS6sVHsYTmt4/Zs9338EBYpwXy+qZBqWJHVfZRAY8 sDo2cKAwQ7Yo+r/rwJeQ0WklE/2lWlzO68zbfs/+xdllC/w22+0zo4D7bCZqrY7ko599wscqGKmSvavd l/mZ8++Gx3Y6bx0E4y/nB0ezi/eKhZsvBI0j14hJcg /ro9w6gs+//dZ5+jxLQb89nLgFtQckP+/Dwp+xVUjueF4wcUQlSij8aWZ4aT4dloqoyM21zX0yqfvEfe kK2vjoln5O8jq/Ob9+5qZ9i05rEjbmh86+/sVs5act/FC2Vauis76Owl74rNcpLMS8Mqz58AUewK/sGH VK81nFB5UH8E8F/Fqbn3Aj/0pLz3bx3IzfOGMgrMVQ PBKXNV73/Lx7QSJeKhn0mzJLAu4NuLlqG2awNTc140XM2toE516naYC+extension clerk+u6m7Uo2U9RMv5fQQsq0vP [file] ID Date Data Source [id number] 08/26/2019 08:04:[address] [facility] Name Value Range Interpretation Code Description Data Renita rce(s) Supporting Document(s) Choriogonadotropin.beta subunit free [Units/volume] in Serum or Plasm a <5 [facility] (NOTE)Levels between 5 and 25 [IU]/L may indicate earlypregnancy and should be repeated after 48 hours. ID Date Data Source [id number] 08/26/2019 08:04:[address] [facility] Name Value Range Interpretation Code Description Data Renita rce(s) Supporting Document(s) Leukocytes [#/volume] in Blood by Automated count 8.8 10*3/uL 4-10 [facility] Erythrocytes [#/volume] in Blood by Automated count 4.74 10*6/uL 4.1- 5.3 [facility] Hemoglobin [Mass/volume] in Blood 13.9 g/dL 11.5-15.5 [facility] Hematocrit [Volume Fraction] of Blood by Automated count 40.6 % 3 6-45 [facility] Erythrocyte mean corpuscular volume [Entitic volume] by Auto mated count 85.8 fL 80-96 [facility] Erythrocyte mean corpuscular hemoglobin [Entitic mass] by Automated count 29.3 pg 27-33 [facility] Erythrocyte mean corpuscular hemoglobin concentration [Mass/volume] by Automated count 34.1 g/dL 32.0-36.0 [facility] distribution width [Ratio] by Automated count 13.8 % 11.5-14.5 [facility] Platelets [#/volume] in Blood by Automated count 207 10*3/uL 150-400 [facility] Differential cell count method - Blood [facility] Neutrophils/100 leukocytes in Blood by Automated count 90 % [facility] Lymphocytes/100 leukocytes in Blood by Automated count 8 % [facility] Monocytes/100 leukocytes in Blood by Automated count 2 % [facility] Eosinophils/100 leukocytes in Blood by Automated count 0 % [facility] Basophils/100 leukocytes in Blood by Automated count 0 % [facility] Neutrophils [#/volume] in Blood by Automated count 7.90 10*3/uL 1.8-7 .0 H [facility] Lymphocytes [#/volume] in Blood by Automated count 0.70 10*3/uL 1.2-4 .0 L [facility] Monocytes [#/volume] in Blood by Automated count 0.18 10*3/uL 0-0.8 [facility] Eosinophils [#/volume] in Blood by Automated count 0.00 10*3/uL 0-0.5 [facility] Basophils [#/volume] in Blood by Automated count 0.01 10*3/uL 0-0.2 [facility] Nucleated erythrocytes/100 leukocytes [Ratio] in Blood by Automated count 0 /100{WBCs} 0-0 [facility] ID Date Data Source [id number] 08/26/2019 08:44:39 PM EDT [facility] Name Value Range Interpretation Code Description Data Renita rce(s) Supporting Document(s) Bicarbonate [Moles/volume] in Serum 25 mmol/L -29 [facility] Chloride [Moles/volume] in Serum or Plasma 104 mmol/L 98-107 [facility] Creatinine [Mass/volume] in Serum or Plasma 0.86 mg/dL 0.50-0.90 [facility] Glucose [Mass/volume] in Serum or Plasma 146 mg/dL 70-140 H [facility] Potassium [Moles/volume] in Serum or Plasma 3.8 mmol/L 3.4-5.1 [facility] Sodium [Moles/volume] in Serum or Plasma 140 mmol/L 136-145 [facility] Urea nitrogen [Mass/volume] in Serum or Plasma 12 mg/dL 6-20 [facility] Anion gap 3 in Serum or Plasma 11 mmol/L 8-15 [facility] Osmolality of Serum or Plasma by calculation 292 mosm/kg 275-300 [facility] Creatinine/Urea nitrogen [Mass Ratio] in Serum or Plasma 14 [facility] Calcium [Mass/volume] in Serum or Plasma 9.1 mg/dL 8.6-10.0 [facility] Glomerular filtration rate/1.73 sq M pre dicted among non-blacks [Volume Rate/Area] in Serum or Plasma by Creatinine-based formula (MDRD) >6 0 [facility] Glomerular filtration rate/1.73 sq M pre dicted among blacks [Volume Rate/Area] in Serum or Plasma by Creatinine-based formula (MDRD) >60 [facility] ID Date Data Source HCG, SERUM QUANTITATIVE 06/20/2019 12:00:00 AM EDT [facility] ([facility]) Name Value Range Interpretation Code Description Data Renita rce(s) Supporting Document(s) < 1.0 HCG, SERUM QUANTITATIVE eCW1 ( [facility]) ID Date Data Source [id number] 06/05/2019 12:06:37 PM EDT [facility] Name Value Range Interpretation Code Description Data Renita rce(s) Supporting Document(s) Progress Note [facility] ZPNNOh4bElCXNaLq34/RYPnlVAWwr5OqBOlxTJv7ZUauVKXlR8SmTEG6uT8aSNV6GYzFAaWdCuRjPOW4 lbm [file] AgICAgICAgICAgICAgICAgICAgICAgICAgICAgICAgICAgICAgICAgICAgICAgICAgICAgICAgICAgIC IkYAIzRUGbIPWtQPNaHHTxWCMvQMAhKYTeVB0UDGMxRQCwVSHaXBOvSYXuGJMwJVHyPDQbDKByTKUiWT AgICAgICAgICAgICAgICAgICAgICAgICAgICAgICAg FRKqWWPdZGKyVHXoKTBoOELyWTHpILOjFYAcOCYsAVEaMNLuYW4DZIYnSUJmVKNnOMNcIPIlQEEnEQXh ICAgICAgICAgICAgICAgICAgICAgICAgICAgICAgICAgICAgICAgICAgICAgICAgICAgICAgICAgICAg PEHhPSRfWESxJLLvNNUfJAIxTD9QETFbDFQkMXRxXT AgICAgICAgICAgICAgICAgICAgICAgICAgICAgICAgICAgICAgICAgICAgICAgICAgICAgICAgICAgIC BeDKMmWAZjOCSsPVYiYAHeVIDuLHOeIYDsPENzFK0JMZGhOSCjURQuWYBaMMOpQSYoYLKwXPVpXXOgDR AgICAgICAgICAgICAgICAgICAgICAgICAgICAgICAg XIHlXEWnKHVbRSKdKTCqMFJuZDBfQZCxCXAuUTQjZNEfPAEdWWPfBA8TVIOaBEZmOMQpIUDxMWKmWHOv ICAgICAgICAgICAgICAgICAgICAgICAgICAgICAgICAgICAgICAgICAgICAgICAgICAgICAgICAgICAg RNOfGEWtIRUgIKXoYIUcQXOkJXOzPQ9NTYHrRDGcMI AgICAgICAgICAgICAgICAgICAgICAgICAgICAgICAgICAgICAgICAgICAgICAgICAgICAgICAgICAgIC VtRPXyCNDwFLGqPEGiFXCkZXIvXAJcGLEePZMnFZOnCR0OGJVgURRmVORrYQAhTMBuERNzHJOrLNCiAJ AgICAgICAgICAgICAgICAgICAgICAgICAgICAgICAg YBUeVPAhBSAlXCPqOSIkTNHwJYEfWDJjPHJrGHEcJDIpJKLmHHZoNASdDT0AFPMjJNChSJCgVOAfGTZa ICAgICAgICAgICAgICAgICAgICAgICAgICAgICAgICAgICAgICAgICAgICAgICAgICAgICAgICAgICAg NMGsUXUxPVUeJJDdGICiGUJhRJPyDJWtVU0DIUZkZO AgICAgICAgICAgICAgICAgICAgICAgICAgICAgICAgICAgICAgICAgICAgICAgICAgICAgICAgICAgIC BdCYMpUVViRXHjMAUdNFOtVFKxMRIcIMTmXUVrZPBrWYHwFG8OSZ02tXAjx9D1NLPxMR2bspr/Pg0KDQ srwyFslMBhPL2UZcDiMQ8wtg1CSrAfWW8dui0MGPrF UaKbO0E6hWDsDJJdMQZDTcQqP40bZEozCe87QQkdPIOiHpTeHZz7Mr6AAqPeJ2uqGEBgIlN7IXSeBhD8 XGAfSlX0TANbIdEjKGtgIW8Ps1HsnBFvHVz+Eo9UGC3bc0FwAVfzScYyZM2uge8YXAtUYvEcC2RvyxA4 RIB0FWJyQn3POSUdDZUzhZRqDYAiRTHZTwBaL9CwfS 19MILANg7+LPbyfdXuQipVArH3XJWfo8JnORe3QJ0HJBBiHEi4xQIlRPVcN1Bzo1LiTg37CARzStqsNM DrABvhCZ9pM7jnE5otBT1EZFJ0CWLsUP0lHUFdPSH6PxCyCLFYFH9BNQYeKPEhgONcSNRmRUMPYA3EFM bsVMZ9IKCuqhOsgDOpGSgbYG3WWPSsrpAwPxInEFDV DQo+Vl8AYH9gj4FjZYslOSUpWX6vsg2ISVkDRrJqI1V7cGPiL8O6ELpyHn1CZGTgVJClKhWlBSRLWAxi BO8FNC1bctS3UD2JqJHxWOLrYDYlaLVyZNx0G62izNOoGYgiDK4MAWB+Kena+Zp1AZLMtNKTeEEYhCnDn ZEKOPgNvC7SrC9HOa2RrM9BxCE10uMkmgfHfGIliLH 6YXI0tUBJjPILCHC8IzOUniY3zvtJfRdHeGOXZDqGeN01ivSBeXUQpTDBtPJQwXb7DGFRzP6NnvdBytK zuivEmNBBeUHCWEL7QLVgvsxVsqLMqkAbxFV26jMkpTV1ALh6EBmJcPP2yaw4YvPJoLn5QLOTnGc1JXE IsCHAoFXBfOEY9FLLuEcVmHHcbDXVzEXQvRFL4YKMm RNPpBX0IGyFfXWOgRzU0QKKgFUUxNRLbge4WNOGxSEJhSXM1HUVnKUEcFLQiSJloNCYdNYFjRRL9QASy DGTiXY6SZjPuFUAdZMZlEMVsHKYyIKSiyk9PKEJuPUXaPQQ3RKAaAOUpPZQkTFtvXXAsTAV9XVDqETNh QNDiYM2CNlKkUAYcWOf4JjEeSOQdHGFuul6NLZFnNT YmIHV0VyXhVULnTIQtNOseDPIzSDQeDnkxHJJgVWSpQZ8WUvSgJSTkCMG1XJNfIIPjTAEguh9YAAQdDQ QrHutmFeHxRKBwVCHyGLaeHZHwBIAyIKQhDUTyBPTuQB3ARlScAFSyMBC4UgxsEBFpMJQuyf2VGYDkHI LmICM1LXDtWXSsDHImAPuzWEVrQFS1AsE5LWCbBXEi VN8WTqMfLHQqHyI2VNqyOYQtRWIeai9LJGLqVPLiMzIbIHFrEMWaWTNqDZeoFYNfNFY4LzAyHIRbINEx SD5IHaLuGWFjRgX1AMGrSXPmCJFrfw9TONZeOLZzUofcISTgWQTgSPQbETanSCQhLVO4ZOMdRGVdNDSs QP0YWpBnDRPdEdn0QTLmRGPjMRZqod5XKIRnBSRmMQ C3CMHrBIKwLZZkZGauFLPgTFW7Hcj5KPNxNOPcVT7ZMxZpXMlnYVMDEzp1ZBnnO1a1VWBaWd0OT9Lpc1 DuDtMdSHYONSbcJJ2ulwSnDLCsRx4WV6rCFho2JlVzRDCmVwMbFmP3GlSjYqXdMGPpNST5TuHsACG7EC 3lIFsgVPF1T8ZnHLDiQsOoN2BeXMIpDXCtWYJuR3Sd ZWVlCpTzDZ2STk4VPdD6DXW8uJVvVx2VYjmeIHUECtWvIB4JQCr= Procedure Social History Code Duration Value Status Description Data Source(s ) Smoking 01/16/2020 12:00:00 AM EST Current Smoker completed Curre nt Smoker eCW1 ([facility]) Smoking 01/16/2020 12:00:00 AM EST Current Smoker completed Curre nt Smoker eCW1 ([facility]) Smoking 01/16/2020 12:00:00 AM EST Current Smoker completed Curre nt Smoker eCW1 ([facility]) Smoking 01/16/2020 12:00:00 AM EST Current Smoker completed Curre nt Smoker eCW1 ([facility]) Smoking 01/16/2020 12:00:00 AM EST Current Smoker completed Curre nt Smoker eCW1 ([facility]) Alcohol intake 08/30/2019 12:00:00 AM EDT Current non-d diane of alcohol (finding) completed Current non-drinker of alcohol (finding) [facility] Cigarettes smoked current (pack per day) - Reported 08/30/19 12:00:00 AM EDT UNK completed [facility] Smoking 08/30/2019 12:00:00 AM EDT Light tobacco smoker comple myron Light tobacco smoker [facility] Alcohol intake 08/26/2019 12:00:00 AM EDT Current non-d diane of alcohol (finding) completed Current non-drinker of alcohol (finding) [facility] Cigarettes smoked current (pack per day) - Reported 08/26/19 12:00:00 AM EDT UNK completed [facility] Smoking 08/26/2019 12:00:00 AM EDT Light tobacco smoker comple myron Light tobacco smoker [facility] Vital Signs ID Date Data Source [id number] 11/28/2019 08:40:[address] [facility] Name Value Range Interpretation Code Description Data Source(s) WEIGHT RECORDED 155 lb 155 lb [facility] Body height Measured 60 in 60 in [facility] WEIGHT RECORDED 155 lb 155 lb [facility] Body height Measured 60 in 60 in [facility] ID Date Data Source [id number] 06/05/2019 12:06:37 PM EDT [facility] Name Value Range Interpretation Code Description Data Source(s) WEIGHT RECORDED 150 lb 150 lb [facility] Body height Measured 60 in 60 in [facility] Patient Treatment Plan of Care Planned Activity Planned Date Details Description Data Source (s) Omeprazole 20 MG Delayed Release Oral Capsule 01/31/2020 12:00:00 A M EST eCW1 ([facility]) Omeprazole 20 MG Delayed Release Oral Capsule 01/31/2020 12:00:00 A M EST eCW1 ([facility]) Omeprazole 20 MG Delayed Release Oral Capsule 01/31/2020 12:00:00 A M EST eCW1 ([facility]) Fluconazole 150 MG Oral Tablet 01/17/2020 12:00:00 AM EST eCW1 ([facility]) Fluconazole 150 MG Oral Tablet 01/17/2020 12:00:00 AM EST eCW1 ([facility]) Fluconazole 150 MG Oral Tablet 01/17/2020 12:00:00 AM EST eCW1 ([facility]) Fluconazole 150 MG Oral Tablet 01/17/2020 12:00:00 AM EST eCW1 ([facility]) Fluconazole 150 MG Oral Tablet 01/17/2020 12:00:00 AM EST eCW1 ([facility]) 24 HR quetiapine 50 MG Extended Release Oral Tablet 01/16/20 12:00:00 AM EST eCW1 ([facility]) Levofloxacin 750 MG Oral Tablet 01/16/2020 12:00:00 AM EST eCW1 ([facility]) 24 HR quetiapine 50 MG Extended Release Oral Tablet 01/16/20 12:00:00 AM EST eCW1 ([facility]) Levofloxacin 750 MG Oral Tablet 01/16/2020 12:00:00 AM EST eCW1 ([facility]) 24 HR quetiapine 50 MG Extended Release Oral Tablet 01/16/20 12:00:00 AM EST eCW1 ([facility]) Levofloxacin 750 MG Oral Tablet 01/16/2020 12:00:00 AM EST eCW1 ([facility]) Levofloxacin 750 MG Oral Tablet 01/16/2020 12:00:00 AM EST eCW1 ([facility]) 24 HR quetiapine 50 MG Extended Release Oral Tablet 01/16/20 12:00:00 AM EST eCW1 ([facility]) Levofloxacin 750 MG Oral Tablet 01/16/2020 12:00:00 AM EST eCW1 ([facility]) 24 HR quetiapine 50 MG Extended Release Oral Tablet 01/16/20 12:00:00 AM EST eCW1 ([facility]) letrozole 2.5 MG Oral Tablet 01/01/2020 12:00:00 AM EST eCW1 ([facility]) letrozole 2.5 MG Oral Tablet 01/01/2020 12:00:00 AM EST eCW1 ([facility]) 15 ML natalizumab 20 MG/ML Injection 08/30/2019 12:00:00 AM [facility] Sumatriptan 50 MG Oral Tablet 08/30/2019 12:00:00 AM [facility] Fluoxetine 20 MG Oral Capsule 08/30/2019 12:00:00 AM [facility] methylPREDNISolone Sodium Succ 1000 MG I njection Solution Reconstituted (SOLU-MEDROL) 08/27/2019 12:00:00 AM [facility] Omeprazole 20 MG Delayed Release Oral Capsule 06/05/2019 12:00:00 A M [facility] fingolimod 0.5 MG Oral Capsule 11/26/2018 12:00:00 AM [facility] Riboflavin 100 MG Oral Tablet 09/12/2018 12:00:00 AM [facility] Magnesium 500 MG TABS 09/12/2018 12:00:00 AM [facility] Ergocalciferol [id number] UNT Oral Capsule 03/15/2018 12:00:00 AM [facility] gabapentin 100 MG Oral Capsule 03/15/2018 12:00:00 AM [facility] 24 HR Oxybutynin chloride 10 MG Extended Release Oral Tablet 03/15/2018 12:00:00 AM [facility] Prednisone 50 MG Oral Tablet [facility] 24 HR Bupropion Hydrochloride 150 MG Extended Release Oral Tablet [facility] Ethinyl Estradiol 0.035 MG / norgestimate 0.25 MG Oral Tablet [facility]
== END 2020-03-15 17:25 | disposition home or self-care (01) ==
LOC: M ED 16:28
DX: L05.01 Pilonidal cyst with abscess (principal); B00.1 Herpesviral vesicular dermatitis; K21.9 Gastro-esophageal reflux disease without esophagitis; J45.909 Unspecified asthma, uncomplicated; F41.9 Anxiety disorder, unspecified; F33.9 Major depressive disorder, recurrent, unspecified; E28.2 Polycystic ovarian syndrome; F17.200 Nicotine dependence, unspecified, uncomplicated; Z88.1 Allergy status to other antibiotic agents; Z79.84 Long term (current) use of oral hypoglycemic drugs; Z79.899 Other long term (current) drug therapy

== ENCOUNTER → 2020-05-10 | Outpatient (REF) | payer BC ==
[~2020-05-10] MED LIST changes: +SULF1TAB93; +VALA1TAB5 PO
[2020-05-10 16:14] LABS: HCG, SERUM QUALITATIVE POSITIVE (NEGATIVE)
[2020-05-10 16:19] LABS: HCG, SERUM QUANTITATIVE 338 MIU/ML
== END ==
LOC: M LAB REF 14:51
PROVIDERS: ATTEND Physician Assistant Medical
DX: Z32.01 Encounter for pregnancy test, result positive (principal)

== ENCOUNTER → 2020-05-12 | Outpatient (CLI) | payer BC | LOC: M LAB 07:36 | PROVIDERS: ATTEND Family Medicine | DX: N92.6 Irregular menstruation, unspecified (principal) ==

== ENCOUNTER → 2020-05-15 | Outpatient (CLI) | payer BC | LOC: M LAB 07:37 | PROVIDERS: ATTEND Family Medicine | DX: Z34.91 Encounter for supervision of normal pregnancy, unspecified, first trimester (principal); Z3A.01 Less than 8 weeks gestation of pregnancy ==

== ENCOUNTER 2020-05-22 18:07 | Emergency (ER) | payer BC ==
[~2020-05-22] VITALS: Ht 152.4 cm; Wt 65.0 kg
[2020-05-22 19:01] LABS: BASO # 0.1 10^3/uL (0.0-0.2); BASO % 0.7 % (0.0-1.0); EOS # 0.1 10^3/uL (0.0-0.5); EOS % 1.6 % (0.0-3.0); HEMATOCRIT 32.1 % (36.0-47.0); HEMOGLOBIN 11.1 g/dl (12.0-15.5); LYMPH # 2.5 10^3/uL (1.5-5.0); LYMPH % 29.3 % (24.0-44.0); MEAN CORPUSCULAR HEMOGLOBIN 29.8 pg (27.0-33.0); MEAN CORPUSCULAR HGB CONC 34.6 g/dl (32.0-36.5); MEAN CORPUSCULAR VOLUME 86.1 fl (80.0-96.0); MONO # 0.5 10^3/uL (0.0-0.8); MONO % 6.5 % (2.0-8.0); NEUTROPHILS # 5.2 10^3/uL (1.5-8.5); NEUTROPHILS % 61.7 % (36.0-66.0); PLATELET COUNT, AUTOMATED 200 10^3/uL (150-450); RED BLOOD COUNT 3.73 10^6/uL (4.00-5.40); WHITE BLOOD COUNT 8.4 10^3/uL (4.0-10.0)
[2020-05-22 19:34] LABS: BLOOD UREA NITROGEN 13 MG/DL (7-18); CALCIUM LEVEL 8.9 MG/DL (8.5-10.1); CARBON DIOXIDE LEVEL 25 MEQ/L (21-32); CHLORIDE LEVEL 108 MEQ/L (98-107); CREATININE FOR GFR 0.62 MG/DL (0.55-1.30); GLOMERULAR FILTRATION RATE > 60.0 (>60); GLUCOSE, FASTING 85 MG/DL (70-100); HCG, SERUM QUANTITATIVE 20861 MIU/ML; SODIUM LEVEL 138 MEQ/L (136-145)
[2020-05-22 20:36] LABS: APPEARANCE, URINE HAZY (CLEAR); BACTERIA, URINE AUTO NEGATIVE (NEGATIVE); BILIRUBIN, URINE AUTO NEGATIVE (NEGATIVE); BLOOD, URINE BLOOD NEGATIVE (NEGATIVE); COLOR, URINE YELLOW (YELLOW); GLUCOSE, URINE (UA) AUTO NEGATIVE (NEGATIVE); KETONE, URINE AUTO NEGATIVE (NEGATIVE); LEUKOCYTE ESTERASE, URINE AUTO TRACE (NEGATIVE); MUCUS, URINE SMALL (NEGATIVE); NITRITE, URINE AUTO NEGATIVE (NEGATIVE); PROTEIN, URINE AUTO NEGATIVE (NEGATIVE); RBC, URINE AUTO 4 /HPF (0-3); SQUAMOUS EPITHELIAL CELL UR AU 5 /HPF (0-6); WBC, URINE AUTO 1 /HPF (0-3)
--- NOTE | 2020-05-22 22:07 | REPVR ---
PROCEDURE INFORMATION: Exam: US First Trimester, Transabdominal Exam date and time: 05/22/2020 9:16 PM Age: 25 years old Clinical indication: Lmp or gestational age (in weeks): 04/08/2020; Vaginal bleeding, 6 weeks TECHNIQUE: Imaging protocol: Real-time transabdominal obstetrical ultrasound of the maternal pelvis and a first trimester , less than 14 weeks 0 days, with image documentation. COMPARISON: No relevant prior studies available. FINDINGS: Last menstrual period: 04/08/2020 Gestation: There is a single live intrauterine . A single gestational sac, embryo, and yolk sac are visualized. Embryonic/ heart rate: 114 bpm Placenta: There is a 7 mm x 3 mm x 4 mm small subchorionic hematoma surrounding less than 20% of the circumference of the gestational sac (images 6 and 10 of series 1). Amniotic fluid: Within normal limits. BIOMETRY: Gestational age (AUA): 6 weeks 0 days Gestational age (LMP): 6 weeks 2 days Estimated due date (AUA): 01/15/2021 Estimated due date (LMP): 01/13/2021 [place] length: 3.22 mm MATERNAL: Uterus: The anteverted uterus is unremarkable. No myometrial mass is noted. Cervix: Unremarkable. Closed. Right adnexa: The right ovary is normal in appearance. No right ovarian cyst or right adnexal mass is noted. The right ovary measures 2.8 cm x 3.8 cm x 2.6 cm. The color Doppler flow and spectral waveforms within the right ovary are within normal limits, without evidence for right ovarian torsion. Left adnexa: The left ovary is normal in appearance. No left ovarian cyst or left adnexal mass is noted. The left ovary measures 3.4 cm x 2.6 cm x 2.4 cm. The color Doppler flow and spectral waveforms within the left ovary are within normal limits, without evidence for left ovarian torsion. Intraperitoneal space: No free fluid is seen from the images obtained. IMPRESSION: 1. Single live intrauterine with a gestational age by today's ultrasound of 6 weeks 0 days and estimated due date on 01/15/2021. A second trimester obstetrical ultrasound is suggested at 19-20 weeks gestation for a detailed anatomical survey. 2. 7 mm x 3 mm x 4 mm small subchorionic hematoma surrounding less than 20% of the circumference of the gestational sac Electronically signed by: Harvey Lama On 05/22/2020 22:07:17 PM
[2020-05-22 22:36] VITALS: BP 115/66
== END 2020-05-22 22:38 | disposition home or self-care (01) ==
LOC: M ED 18:07
DX: O20.9 Hemorrhage in early pregnancy, unspecified (principal); O36.8911 Maternal care for other specified fetal problems, first trimester, fetus 1; O99.351 Diseases of the nervous system complicating pregnancy, first trimester; G35 Multiple sclerosis; O99.611 Diseases of the digestive system complicating pregnancy, first trimester; K21.9 Gastro-esophageal reflux disease without esophagitis; Z88.1 Allergy status to other antibiotic agents; Z3A.01 Less than 8 weeks gestation of pregnancy; Z79.899 Other long term (current) drug therapy

== ENCOUNTER 2020-06-03 09:02 | Emergency (ER) | payer BC ==
[~2020-06-03] VITALS: Ht 152.4 cm; Wt 65.7 kg
[2020-06-03] MEDS ORDERED: MULTTAB20 PO (09:15)
[2020-06-03] MEDS ORDERED: NS 1,000 ML IV ONE (12:00)
--- NOTE | 2020-06-03 12:12 | REP ---
INDICATION: right sided weakness, hx MS. COMPARISON: Head CT 01/22/2016. MR brain 11/27/2019 TECHNIQUE: Axial CT images with multiplanar reformations. FINDINGS: No acute bleed or acute large vessel territorial infarct. Ventricles, cisterns and sulci within normal limits. No mass effect or midline shift. No abnormal fluid collections. There are few scattered nonspecific white matter changes, the pattern not grossly different from the previous study of 01/22/2016. There may be a new lesion in the vicinity of the right caudate, in the deep matter of the right frontal lobe buenrostro radiata. IMPRESSION: No acute findings. Non-specific white matter changes. There may be a subtle new lesion in the deep white matter of the right frontal lobe as described. CT is relatively insensitive for the lesions of multiple sclerosis. MRI may be informative in further evaluation. <Electronically signed by Jj Bustamante > 06/03/20 [id number]
[2020-06-03 12:17] LABS: BASO # 0.1 10^3/uL (0.0-0.2); BASO % 0.5 % (0.0-1.0); EOS % 0.3 % (0.0-3.0); HEMOGLOBIN 12.1 g/dl (12.0-15.5); LYMPH # 1.6 10^3/uL (1.5-5.0); LYMPH % 15.8 % (24.0-44.0); MEAN CORPUSCULAR HEMOGLOBIN 29.7 pg (27.0-33.0); MEAN CORPUSCULAR HGB CONC 34.6 g/dl (32.0-36.5); MONO # 0.4 10^3/uL (0.0-0.8); MONO % 3.9 % (2.0-8.0); NEUTROPHILS # 7.8 10^3/uL (1.5-8.5); NEUTROPHILS % 79.1 % (36.0-66.0); PLATELET COUNT, AUTOMATED 234 10^3/uL (150-450); RED BLOOD COUNT 4.07 10^6/uL (4.00-5.40); WHITE BLOOD COUNT 9.9 10^3/uL (4.0-10.0)
[2020-06-03] MEDS ORDERED: METOCLOPRAMIDE INJ 10MG/2ML VIAL (J2765 PER 1) IV ONE (12:25)
[2020-06-03] MEDS ORDERED: ONDANSETRON 4MG/2ML VIAL As Ordered ONE (12:35)
[2020-06-03] MEDS ORDERED: ONDANSETRON 4MG/2ML VIAL IV ONE (12:35)
[2020-06-03 13:04] LABS: ALT/SGPT 21 U/L (12-78); BILIRUBIN,DIRECT 0.3 MG/DL (0.0-0.2); BILIRUBIN,TOTAL 1.6 MG/DL (0.2-1.0); CK-MB VALUE MASS 1.8 NG/ML (<3.6); CPK CREATINE PHOSPHOKINASE 53 U/L (26-192); FREE T4 1.22 NG/DL (0.76-1.46); HCG, SERUM QUANTITATIVE 88925 MIU/ML; LIPASE 97 U/L (73-393); MAGNESIUM LEVEL 1.9 MG/DL (1.8-2.4); THYROID STIMULATING HORMONE 0.343 uIU/ML (0.358-3.740); TROPONIN I < 0.02 NG/ML (< 0.10)
--- NOTE | 2020-06-03 13:28 | ECGEPIP ---
[facility] - ED Test Date: 2020-06-03 Pat Name: NANCY METCALF Department: Room: - Gender: Female Regional Education Coordinator: lupe : 1995 Requested By: ALBERTA Lu PA-C Order Number: [id number] Reading MD: Ila Barcenas Measurements Intervals Ione Rate: 65 P: 30 ND: 164 QRS: 67 QRSD: 84 T: 26 QT: 402 QTc: 418 Interpretive Statements Normal sinus rhythm with sinus arrhythmia irbbb similar 07/05/17 Electronically Signed on 06-03-2020 13:28:48 EDT by Ila Barcenas
--- NOTE | 2020-06-03 13:34 | REP ---
INDICATION: r sided weakness, numbness, hx MS. COMPARISON: None. TECHNIQUE: Ebny-yl-qjhxio MRA of the brain performed. FINDINGS: The vertebral arteries are codominant. Basilar artery and manager investment are unremarkable. Internal carotid arteries, proximal and distal MCA branches appear normal. A1 segments and DARI branches are unremarkable. IMPRESSION: Normal MRA of the brain. No evidence of stenosis or occlusion. No aneurysm identified. <Electronically signed by Jj Bustamante > 06/03/20 [id number]
--- NOTE | 2020-06-03 13:35 | REP ---
INDICATION: r sided weakness, numbness, hx MS. COMPARISON: MR brain 11/27/2019. TECHNIQUE: Axial T1, T2, and diffusion-weighted images obtained. Axial gradient sequences obtained. Sagittal T1 weighted images obtained. FINDINGS: No evidence of restricted diffusion to suggest acute infarction. Diffusion weighted images evidence a number of lesions of restricted diffusion, with dominant lesions in the left frontal lobe, left buenrostro radiata, and left max. FLAIR images evidence of large number periventricular lesions, notable in the more superior buenrostro radiata bilaterally. When compared to the most recent prior study of 11/27/2019 a lesion in the left buenrostro radiata appears new and is dominant. A prominent lesion in the left max is also new from the comparison study. A new left frontal lesion is also noted. No mass effect or midline shift. No abnormal fluid collections. Ventricles cisterns and sulci within normal limits. Paranasal sinuses and mastoid air cells are clear. IMPRESSION: Lesions of multiple sclerosis. Several new, large lesions when compared with the prior study of 11/27/2019. <Electronically signed by Jj Bustamante > 06/03/20 [id number]
[2020-06-03 16:47] VITALS: BP 124/66
== END 2020-06-03 16:55 | disposition short-term general hospital (02) ==
LOC: M ED 09:02
DX: O99.351 Diseases of the nervous system complicating pregnancy, first trimester (principal); G35 Multiple sclerosis; Z3A.01 Less than 8 weeks gestation of pregnancy; I10 Essential (primary) hypertension; O99.511 Diseases of the respiratory system complicating pregnancy, first trimester; J45.909 Unspecified asthma, uncomplicated; O99.011 Anemia complicating pregnancy, first trimester; O99.281 Endocrine, nutritional and metabolic diseases complicating pregnancy, first trimester; E28.2 Polycystic ovarian syndrome; Z79.899 Other long term (current) drug therapy; Z88.1 Allergy status to other antibiotic agents; O99.331 Smoking (tobacco) complicating pregnancy, first trimester; F17.210 Nicotine dependence, cigarettes, uncomplicated
CPT/HCPCS: 70450; 70544; 70551; 80047; 80076; 81001; 82550; 82553; 83690; 83735; 84439; 84443; 84484; 84702; 85025; 87086; 93005; 96361; 96374; 99284; J2405; U0002

== ENCOUNTER 2020-06-04 13:32 | Outpatient (CLI) | payer BC ==
[~2020-06-04] VITALS: Ht 152.4 cm; Wt 65.0 kg
[~2020-06-04 13:32] MED LIST changes: +MULTTAB20 PO
[2020-06-04 14:00] VITALS: BP 118/67
[2020-06-04] MEDS ORDERED: methylPREDNISolone 1,000 MG, VIAL MATE ADAPTER 1 EACH in D5W 250 ML IV ONE (15:00)
[2020-06-04 15:35] VITALS: BP 122/70
== END 2020-06-04 15:35 | disposition home or self-care (01) ==
LOC: M INFU 13:32
PROVIDERS: ATTEND Physician Assistant
DX: G35 Multiple sclerosis (principal); Z88.8 Allergy status to other drugs, medicaments and biological substances
CPT/HCPCS: 96365; J2930

== ENCOUNTER 2020-06-05 13:35 | Outpatient (CLI) | payer BC ==
[~2020-06-05] VITALS: Ht 152.4 cm; Wt 65.0 kg
[2020-06-05] MEDS ORDERED: methylPREDNISolone 1,000 MG, VIAL MATE ADAPTER 1 EACH in NS 250 ML IV ONE (14:00)
[2020-06-05 14:28] VITALS: BP 114/59
[2020-06-05 15:16] VITALS: BP 109/57
== END 2020-06-05 15:15 | disposition home or self-care (01) ==
LOC: M INFU 13:35
PROVIDERS: ATTEND Physician Assistant
DX: G35 Multiple sclerosis (principal); Z88.8 Allergy status to other drugs, medicaments and biological substances
CPT/HCPCS: 96365; J2930

== ENCOUNTER 2020-06-06 09:07 | Outpatient (CLI) | payer BC ==
[2020-06-06] MEDS ORDERED: methylPREDNISolone 1,000 MG, VIAL MATE ADAPTER 1 EACH in NS 250 ML IV ONE (09:40)
== END 2020-06-06 11:10 | disposition home or self-care (01) ==
LOC: M OPCLI5PR 09:07 → M MS5PR 09:20 → M OPCLI5PR 11:10
PROVIDERS: ATTEND Physician Assistant
DX: G35 Multiple sclerosis (principal)
CPT/HCPCS: 96365; J2930

== ENCOUNTER 2020-06-07 08:59 | Outpatient (CLI) | payer BC ==
[2020-06-07] MEDS ORDERED: methylPREDNISolone 1,000 MG, VIAL MATE ADAPTER 1 EACH in NS 250 ML IV ONE (09:30)
== END 2020-06-07 10:39 | disposition home or self-care (01) ==
LOC: M OPCLI5PR 08:59 → M MS5PR 09:10 → M OPCLI5PR 10:39
PROVIDERS: ATTEND Physician Assistant
DX: G35 Multiple sclerosis (principal); Z88.8 Allergy status to other drugs, medicaments and biological substances
CPT/HCPCS: 96365; J2930

== ENCOUNTER 2020-06-08 14:14 | Outpatient (CLI) | payer BC ==
[~2020-06-08] VITALS: Ht 152.4 cm; Wt 65.0 kg
[2020-06-08 14:26] VITALS: BP 126/62
[2020-06-08] MEDS ORDERED: methylPREDNISolone 1,000 MG, VIAL MATE ADAPTER 1 EACH in D5W 250 ML IV ONE (15:00)
[2020-06-08 16:00] VITALS: BP 117/72
== END 2020-06-08 16:00 | disposition home or self-care (01) ==
LOC: M INFU 14:14
PROVIDERS: ATTEND Physician Assistant
DX: G35 Multiple sclerosis (principal); Z88.8 Allergy status to other drugs, medicaments and biological substances
CPT/HCPCS: 96365; J2930

== ENCOUNTER → 2020-06-11 | Outpatient (REF) | payer BC ==
[2020-06-11 17:59] LABS: HEMOGLOBIN 12.5 g/dl (12.0-15.5); MEAN CORPUSCULAR HEMOGLOBIN 30.3 pg (27.0-33.0); MEAN CORPUSCULAR HGB CONC 34.7 g/dl (32.0-36.5); MEAN CORPUSCULAR VOLUME 87.2 fl (80.0-96.0); PLATELET COUNT, AUTOMATED 171 10^3/uL (150-450); RED BLOOD COUNT 4.13 10^6/uL (4.00-5.40); WHITE BLOOD COUNT 15.5 10^3/uL (4.0-10.0)
[2020-06-11 20:04] LABS: CHLAMYDIA DNA AMPLIFICATION NEGATIVE (NEGATIVE); GC DNA AMPLIFICATION NEGATIVE (NEGATIVE)
[2020-06-11 21:49] LABS: HEPATITIS C VIRUS ABY INDEX < 0.0 INDEX (<0.8); HIV 1&2 SCREEN CENTAUR NEGATIVE (NEGATIVE)
== END ==
LOC: M PLALAB 15:12
PROVIDERS: ATTEND Advanced Practice Midwife
DX: O99.351 Diseases of the nervous system complicating pregnancy, first trimester (principal)

== ENCOUNTER → 2020-06-16 | Outpatient (REF) | payer BC | LOC: M SFHCLERA 19:18 | PROVIDERS: ATTEND Nurse Practitioner Family | DX: L05.01 Pilonidal cyst with abscess (principal) ==

== ENCOUNTER → 2020-06-19 | Outpatient (CLI) | payer BC | LOC: M LAB 07:38 | PROVIDERS: ATTEND Advanced Practice Midwife | DX: Z34.81 Encounter for supervision of other normal pregnancy, first trimester (principal); Z3A.00 Weeks of gestation of pregnancy not specified ==

== ENCOUNTER 2020-07-16 13:20 | Inpatient (IN) | payer BC ==
[~2020-07-16] VITALS: Ht 152.4 cm; Wt 69.4 kg
[~2020-07-16 13:20] MED LIST changes: +BACTDSTA; +EMTR1TAB16 PO; -FLUO20CA22; +FLUO20CA22 PO; -SULF1TAB93; -TRUVTAB PO
[2020-07-16] MEDS ORDERED: OMEP-218 PO (13:52)
[2020-07-16] MEDS ORDERED: ONDA-83 PO (13:52)
[2020-07-16] MEDS ORDERED: PROMETHAZINE INJ 25 MG/ML VIAL (J2550) IV ONE (16:50)
[2020-07-16] MEDS ORDERED: NS 1,000 ML IV ONE ×2 (16:50→19:40)
[2020-07-16] MEDS ORDERED: METOCLOPRAMIDE INJ 10MG/2ML VIAL (J2765 PER 1) IV ONE (17:00)
[2020-07-16 17:38] LABS: BASO # 0.1 10^3/uL (0.0-0.2); BASO % 0.4 % (0.0-1.0); EOS # 0.1 10^3/uL (0.0-0.5); EOS % 0.6 % (0.0-3.0); HEMATOCRIT 34.1 % (36.0-47.0); LYMPH # 2.2 10^3/uL (1.5-5.0); LYMPH % 19.5 % (24.0-44.0); MEAN CORPUSCULAR HEMOGLOBIN 30.5 pg (27.0-33.0); MEAN CORPUSCULAR HGB CONC 35.2 g/dl (32.0-36.5); MEAN CORPUSCULAR VOLUME 86.5 fl (80.0-96.0); MONO # 0.5 10^3/uL (0.0-0.8); MONO % 4.9 % (2.0-8.0); NEUTROPHILS # 8.2 10^3/uL (1.5-8.5); PLATELET COUNT, AUTOMATED 173 10^3/uL (150-450); RED BLOOD COUNT 3.94 10^6/uL (4.00-5.40); WHITE BLOOD COUNT 11.1 10^3/uL (4.0-10.0)
[2020-07-16 17:52] LABS: ALBUMIN 3.3 GM/DL (3.2-5.2); ALT/SGPT 13 U/L (12-78); BILIRUBIN,DIRECT 0.2 MG/DL (0.0-0.2); BILIRUBIN,TOTAL 1.1 MG/DL (0.2-1.0); BLOOD UREA NITROGEN 10 MG/DL (7-18); C REACTIVE PROTEIN QUANTITATIV 0.81 MG/DL (0.00-0.30); CALCIUM LEVEL 8.5 MG/DL (8.5-10.1); CARBON DIOXIDE LEVEL 27 MEQ/L (21-32); CHLORIDE LEVEL 107 MEQ/L (98-107); CK-MB VALUE MASS < 1.0 NG/ML (<3.6); CPK CREATINE PHOSPHOKINASE 38 U/L (26-192); CREATININE FOR GFR 0.42 MG/DL (0.55-1.30); GLOMERULAR FILTRATION RATE > 60.0 (>60); GLUCOSE, FASTING 64 MG/DL (70-100); LIPASE 58 U/L (73-393); MB/CK RELATIVE INDEX 2.63 (< OR =4); POTASSIUM SERUM 3.9 MEQ/L (3.5-5.1); SODIUM LEVEL 139 MEQ/L (136-145); TOTAL PROTEIN 6.4 GM/DL (6.4-8.2); TROPONIN I < 0.02 NG/ML (< 0.10)
[2020-07-16] MEDS ORDERED: ONDANSETRON 4MG/2ML VIAL IV ONE (17:55)
[2020-07-16 18:34] LABS: ERYTHROCYTE SEDIMENTATION RATE 28 mm/hr (0-20)
[2020-07-16] MEDS ORDERED: methylPREDNISolone 125MG 2ML VIAL IV ONE (20:05)
[2020-07-16 20:26] LABS: AMPHETAMINES LEVEL URINE NEGATIVE (NEGATIVE); BARBITURATES URINE NEGATIVE (NEGATIVE); BENZODIAZEPINES URINE NEGATIVE (NEGATIVE); CANNABINOIDS URINE NEGATIVE (NEGATIVE); COCAINE METABOLITE URINE NEGATIVE (NEGATIVE); METHADONE URINE NEGATIVE (NEGATIVE); OPIATES URINE NEGATIVE (NEGATIVE); PHENCYCLIDINE URINE NEGATIVE (NEGATIVE)
[2020-07-16] MEDS ORDERED: methylPREDNISolone 1,000 MG, VIAL MATE ADAPTER 1 EACH in NS 250 ML IV ONE (20:30)
[2020-07-16] MEDS ORDERED: METF750T36 PO (20:34)
[2020-07-16] MEDS ORDERED: NITROFURANTOIN (MACROBID) 100 MG CAP PO SCH (21:00)
[2020-07-16] MEDS ORDERED: ACETAMINOPHEN TAB 650MG DOSE (2X325MG) PO PRN (21:45)
[2020-07-16] MEDS ORDERED: ONDANSETRON 4 MG TAB PO PRN (22:05)
--- NOTE | 2020-07-16 22:44 | HPEPDOC ---
General Date of Admission July 16, 2020 Date of Service: July 16, 2020 Attending Physician: Bita Rosado MD Chief Complaint Maci is a 25yo with SIUP at 13w6d by lmp c/w 6wk u/s presenting to ER for exacerbation of her multiple sclerosis symptoms (specifically, numbness of her face and lower extremities as well as dizziness) Source: Patient Exam Limitations: No limitations History of Present Illness Maci states that her MS symptoms started to become exacerbated about 6 weeks ago. At some point in the past weeks she received a dose of IV steroids, but she never had full relief. In the past few days, her symptoms have worsened. Her typical MS symptoms include: vision changes, issues with speech, loss of ba rosemarie/dizziness and right sided numbness. Today she states that specifically facial numbness, lower extremity numbness and dizziness are the most prevalent. She has ZERO obstetric complaints. She has NO vaginal bleeding or abdominal/pelvic pain. She does have nausea occasionally for which she takes zofran at home. Prior to she was taking Copaxone injections three times a week prescribed by her neurologist. She states that her neurologist discontinued the medication when she became . She believes she needs the medication to prevent exacerbation of her MS. Notably, she had a brain MRI in May 2020 which showed new large lesions: FINDINGS: No evidence of restricted diffusion to suggest acute infarction. Diffusion weighted images evidence a number of lesions of restricted diffusion, with dominant lesions in the left frontal lobe, left buenrostro radiata, and left max. FLAIR images evidence of large number periventricular lesions, notable in the more superior buenrostro radiata bilaterally. When compared to the most recent prior study of 11/27/2019 a lesion in the left buenrostro radiata appears new and is dominant. A prominent lesion in the left max is also new from the comparison study. A new left frontal lesion is also noted. No mass effect or midline shift. No abnormal fluid collections. Ventricles cisterns and sulci within normal limits. Paranasal sinuses and mastoid air cells are clear. IMPRESSION: Lesions of multiple sclerosis. Several new, large lesions when compared with the prior study of 11/27/2019. Home Medications Scheduled Fluoxetine Hcl (Fluoxetine HCl) 20 Mg Capsule, 20 MG PO DAILY, (Reported) Metformin HCl (Metformin HCl ER) 750 Mg Tab.er.24h, 1,500 MG PO DAILY, (Reported) Omeprazole (Omeprazole) 20 Mg Capsule.dr, 20 MG PO DAILY, (Reported) No122/Iron/Folic Acid ( Multi Tablet) 1 Each Tablet, 1 TAB PO DAILY, (Reported) Scheduled PRN Ondansetron HCl (Ondansetron HCl) 4 Mg Tablet, 4 MG PO TID PRN for NAUSEA OR VOMITING, (Reported) Allergies Coded Allergies: Cephalosporins (Verified Allergy, Intermediate, 08/22/19) ceftriaxone (Verified Allergy, Intermediate, hives, 03/15/20) Past Medical History Medical History Multiple sclerosis, polycystic ovarian syndrome, tobacco use prior to , dysthymia, GERD Surgical History T&A, appendectomy, pilonidal cyst Family History Significant Family History: Other (heart disease, dementia, MGM breast cancer) Social History * Smoker: former Smoker (quit with +hcg) Alcohol: Denies Drugs: denies Psychosocial History: Decreased mood A-FIB/CHADSVASC A-FIB History Current/History of A-Fib/PAF?: No Review of Systems Constitutional: Denies: Chills, Fever, Malaise, Night Sweats, Weight Loss Skin: Denies: Rash, Lesions, Jaundice, Bruising, Itching, Dry, Breakdown, Other Pulmonary: Denies: Dyspnea, Cough, Pleuritic Chest Pain, Other Symptoms Cardiovascular: Reports: Lt Headedness; Denies: Chest Pain, Palpitations, Orthopnea, Paroxysmal Noc. Dyspnea, Edema, Other Symptoms Gastrointestinal: Reports: Nausea, Vomiting; Denies: Abdominal Pain, Diarrhea, Constipation, Melena, Hematochezia, Other Symptoms Genitourinary: Denies: Dysuria, Frequency, Incontinence, Hematuria, Retention, Other Symptoms Neurological: Reports: Weakness, Numbness, Incoordination Physical Examination General Exam: Positive: Alert, Cooperative, No Acute Distress ENT Exam: Positive: Atraumatic Abdomen Exam: Positive: Soft, Other (gravid) Skin Exam: Positive: Nl turgor and temperature Psych Exam: Positive: Mental status NL, Mood NL Vital Signs Vital Signs Date Time Temp Pulse Resp B/P (MAP) Pulse Ox O2 Delivery O2 Flow Rate FiO2 07/16/20 19:27 72 91/52 (65) 74 112/57 (75) 94 115/60 (78) 07/16/20 13:50 97.7 22 97 Room Air Laboratory Data Labs 24H Laboratory Tests 2 07/16/20 17:07: Immature Granulocyte % (Auto) 0.6, Neutrophils (%) (Auto) 74.0H, Lymphocytes (%) (Auto) 19.5L, Monocytes (%) (Auto) 4.9, Eosinophils (%) (Auto) 0.6, Basophils (%) (Auto) 0.4, Neutrophils # (Auto) 8.2, Lymphocytes # (Auto) 2.2, Monocytes # (Auto) 0.5, Eosinophils # (Auto) 0.1, Basophils # (Auto) 0.1, Nucleated Red Blood Cells % (auto) 0.0, Erythrocyte Sedimentation Rate 28H, Anion Gap 5L, Nahomy merular Filtration Rate > 60.0, Calcium Level 8.5, Total Bilirubin 1.1H, Direct Bilirubin 0.2, Aspartate Amino Transf (AST/SGOT) 10, Alanine Aminotransferase (ALT/SGPT) 13, Alkaline Phosphatase 51, Total Creatine Kinase 38, Creatine Kinase MB < 1.0, Creatine Kinase MB Relative Index 2.63, Troponin I < 0.02, C- Reactive Protein, Quantitative 0.81H, Total Protein 6.4, Albumin 3.3, Albumin/Globulin Ratio 1.1L, Lipase 58L 07/16/20 19:18: Urine Color LIYA, Urine Appearance CLOUDYH, Urine pH 5.0, Urine Specific [place] 1.028, Urine Protein 1+H, Urine Glucose (UA) NEGATIVE, Urine Ketones 1+H, Urine Blood NEGATIVE, Urine Nitrite NEGATIVE, Urine Bilirubin NEGATIVE, Urine Urobilinogen 4.0H, Urine Leukocyte Esterase 2+H, Urine WBC (Auto) 7H, Urine RBC (Auto) 6H, Urine Hyaline Casts (Auto) 0, Urine Bacteria (Auto) 1+H, Urine Squamous Epithelial Cells 6, Urine Mucus (Auto) SMALL, Urine Sperm (Auto) 07/16/20 19:48: Urine Opiates Screen NEGATIVE, Urine Methadone Screen NEGATIVE, Urine Barbiturates Screen NEGATIVE, Urine Phencyclidine Screen NEGATIVE, Urine Amphetamines Screen NEGATIVE, Urine Benzodiazepines Screen NEGATIVE, Urine Cocaine Metabolite Screen NEGATIVE, Urine Cannabinoids Screen NEGATIVE CBC/BMP Laboratory Tests 07/16/20 17:07 Microbiology Microbiology 07/16/20 Respiratory Virus Panel (PCR) (BRITTANIE) - Final, Complete 07/16/20 Urine Culture, Received Pending RAD Interpretation RAD Interpretation: Other Result Comments: Assessment/Plan Maci is a 25yo with SIUP at 13w6d by lmp c/w 6wk u/s presenting to ER for exacerbation of her multiple sclerosis symptoms (specifically, numbness of her face and lower extremities as well as dizziness). Typically MS symptoms improve with , but unfortunately since discontinuing the copaxone injections prescribed by her neurologist, patient has been experiencing exacerbation of her MS. Her brain MRI May 2020 showed new large lesions. Vitals are wnl, and her obstetric exam is wnl (normal doptones obtained). She has no obstetric complaints. Plan / VTE VTE Prophylaxis Ordered?: Yes Plan Plan -Admission for IV steroids per Internal Medicine recommendation to treat MS e xacerbation. From an OB perspective, we are very happy to follow along with patient's progress, but defer the management of patient's MS exacerbation to Internal Medicine -urine culture pending, possible UTI based on UA (continue macrobid 100mg PO BID initiated by ER) -4mg zofran PO q6hr prn nausea -650mg PO tylenol q6hr prn pain/fever -regular diet -daily vitamin -please notify us if patient experiences any vaginal bleeding -I have initiated an outpatient referral to the Center for patient to meet with MFM regarding treatment of MS going forward. This will likely take place in the next 4-6 weeks I have admitted Maci to expedite her care, but I made it clear that it is most appropriate for Internal Medicine to admit her since they are treating her MS exacerbation and she is not being admitted for any obstetric reason (and she is pre-viable). Internal Medicine has refused to perform the admission despite this being in contradiction to the policy of [facility]. This will be reviewed. In the meantime, OB team is happy to follow along with patient's progress. Bita Rosado MD July 16, 2020 22:44
[2020-07-16 23:45] VITALS: BP 108/55
[2020-07-17] MEDS: NITROFURANTOIN (MACROBID) 100 MG CAP PO SCH ×3 (01:21→21:33)
[2020-07-17 04:00] VITALS: BP 103/57
--- NOTE | 2020-07-17 05:36 | IPNPDOC ---
Text Note Date of Service The patient was seen on 07/16/20 at 948pm Ms. Alfredo is a 25 yr w MS, asthma and anxiety who has been having weakness and abnormal speech which she attributes to Acute MS; she stopped taking her chronic MS meds and declined MRI of the brain bc she was concerned that this would harm her baby; Shira Gutierreskatherineamina discussed the case with the Neurologist manufacturing applications engineer who recommended steroids. Because is in her second trimester and has MS her may be a high risk ; due to our services limited experience in caring for patients with MS we felt that the safest course of action, for both the baby and the mother, would be for the patient to be transferred to a facility with a Maternal Medicine Specialist. Shira Curtis reached out to [facility] and discussed the case with a Neurologist. We are not sure if she discussed the case with OB at [facility]; never the less we agreed to be on consult to manage the acute MS as long as the patient was admitted under the OB service. We will c/w Solumedrol 1G IV daily and ask the day time hospitalist to liaise with the Neurology service. rest per 's H&P VS,Erine, I+O VS, Erine, I+O Laboratory Tests 07/16/20 17:07 Vital Signs Date Time Temp Pulse Resp B/P (MAP) Pulse Ox O2 Delivery O2 Flow Rate FiO2 07/17/20 04:00 98.2 64 18 103/57 (72) 98 Room Air I&O- Last 24 Hours up to 6 AM 07/17/20 06:00 Intake Total 0 ml Output Total 0 ml Balance 0 ml PAT LESLIE MD July 17, 2020 05:36
[2020-07-17] MEDS ORDERED: GLUCOSE 4GM CHEW TABLET PO PRN (05:40)
[2020-07-17] MEDS ORDERED: GLUCAGON INJ 1MG VIAL SC PRN (05:40)
[2020-07-17] MEDS ORDERED: DEXTROSE 50% 50 ML SYRINGE IV PRN (05:40)
--- NOTE | 2020-07-17 06:07 | CR.PDOC ---
General Date of Consultation: July 16, 2020 Referring Provider: A Primary Care Physician: SALONI CONRAD MD Attending Physician: Bita Rosado MD Consultation REASON FOR CONSULTATION/CHIEF COMPLAINT: Recurrent MS flares since the past one and a half month HISTORY OF PRESENT ILLNESS: Patient is a 25-year-old female, G2, P1, currently 14 weeks with a history of multiple sclerosis who recently stopped taking her usual medication for MS, glatiramer acetate when she found out she was . Patient has had recurrent episodes of MS flares most recent being 1-1/2 month ago when she was treated with IV Solu-Medrol doses , which she completed on 12th of last month. Since then, the patient was doing apparently all right but she started having similar worsening of her MS symptoms yesterday. Her symptoms today include left lower extremity , left upper extremi ty and facial numbness and tingling with slurred speech and dizziness. The patient also complains of nausea and vomiting episodes , her last vomiting episode being yesterday. Most likely due to nausea and vomiting of . As per the patient, she vomited whatever she ate with no evidence of blood. Patient, however, has had a normal appetite and been eating and drinking regularly. Patient denies any vision changes, headaches, any new onset weakness, facial palsy, loss of bowel or bladder control. She has been thoroughly worked up for stroke and ruled out recently. In the ED, neurology was consulted who recommended the patient be started on an IV dose of Solu-Medrol 1 g for a total of 3 doses. Patient was started on IV steroids. Patient was also given IV Zofran. as needed for her nausea. ALLERGIES: Please see below. HOME MEDICATIONS: Please see below. PAST MEDICAL HISTORY: 1. Multiple sclerosis. 2., GERD. 3., PCOS 4. Migraine 5. Slater syndrome SOCIAL HISTORY: Tobacco use: Smoked before . Stopped when she found out she is . ETOH: Drank before she found out she is . Occasional drinker Illicit drug use:. Never IV drug use: Never REVIEW OF SYSTEMS: .General: Reports: Normal Appetite; Denies: Fatigue, Malaise Constitutional: Denies: Fever, Chills, Sweats, Weakness, Malaise Eyes: Denies: Pain, Vision change ENT: Denies: Head Aches, Sore Throat, Epistaxis Skin: Denies: Rash, Lesions, Breakdown, Nail Changes Pulmonary: Denies: Dyspnea, Cough Cardiovascular: Denies Chest Pain, Denies Palpitations Gastrointestinal: Denies: Nausea, Vomiting, Abdominal Pain, diarrhea,constipation Genitourinary: Denies: Dysuria, Frequency, Incontinence, Hematuria Hematologic: Denies: Bruising, Bleeding Excessively Endocrine: Denies: Polydipsia, Polyphagia, Polyuria Musculoskeletal: Denies: Neck Pain, Back Pain Neurological: Denies: Weakness, Numbness, Incoordination, Change in Speech Psych: Reports: Mood Normal; Denies: Anxiety, Depression PHYSICAL EXAMINATION: VITAL SIGNS: Please see below. GENERAL APPEARANCE: Patient looks alert, cooperative, not in any acute distress. HEENT: Atraumatic, normocephalic, moist mucous membranes, no conjunctival pallor, no scleral icterus PERRLA, EOMI. CARDIOVASCULAR: S1 and S2 heard, rate and rhythm normal. No murmurs appreciated. LUNGS:. Clear to auscultation bilaterally, no wheezing, rhonchi or crackles heard. ABDOMEN: Nondistended, nontender, no organomegaly, no rashes. EXTREMITIES: No pedal edema, good volume pulses , good capillary refill + NEUROLOGICAL: 5/5 motor strength, sensations intact. PSYCHIATRIC:, Normal mood and affect. LABORATORY DATA: Please see below. ASSESSMENT/PLAN: 1. Multiple sclerosis flareup: -Patient was admitted for IV Solu-Medrol treatment. -Continuous monitoring of vitals. -Patient will be kept on fall precautions due to anticipated. Leg weakness. -A nystatin swish and swallow treatment might be considered to prevent oral thrush that the patient gets from Solu-Medrol treatments. -Patient might need to get back on her previous treatment with the Gltiramer acetate to keep her MS under control . 2.. Asymptomatic bacteriuria of : -Patient denies any symptoms, however, her urine analysis was positive for infection. -We started the patient on Macrobid twice a day, which needs to be a total t reatment of 5 or 7 days. 3.MIGRAINE: -Acetaminophen as needed ordered. -Patient has not required any medication for sometime. -Patient used to previously take sumatriptan before . 4. 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 -Any stressful situation including pain and MS flares make her bilirubin go up. -Patient does not have any icterus. . DVT prophylaxis: Teds and sequentials. DISPOSITION: Likely 2 hospital days. Vital Signs/I&O Vital Signs Date Time Temp Pulse Resp B/P (MAP) Pulse Ox O2 Delivery O2 Flow Rate FiO2 07/17/20 04:00 98.2 64 18 103/57 (72) 98 Room Air I&O- Last 24 Hours up to 6 AM 07/17/20 06:00 Intake Total 0 ml Output Total 0 ml Balance 0 ml Laboratory Data Labs 24H Laboratory Tests 2 07/16/20 17:07: Immature Granulocyte % (Auto) 0.6, Neutrophils (%) (Auto) 74.0H, Lymphocytes (%) (Auto) 19.5L, Monocytes (%) (Auto) 4.9, Eosinophils (%) (Auto) 0.6, Basophils (%) (Auto) 0.4, Neutrophils # (Auto) 8.2, Lymphocytes # (Auto) 2.2, Monocytes # (Auto) 0.5, Eosinophils # (Auto) 0.1, Basophils # (Auto) 0.1, Nucleated Red Blood Cells % (auto) 0.0, Erythrocyte Sedimentation Rate 28H, Anion Gap 5L, Glomerular Filtration Rate > 60.0, Calcium Level 8.5, Total Bilirubin 1.1H, Direct Bilirubin 0.2, Aspartate Amino Transf (AST/SGOT) 10, Alanine Aminotransferase (ALT/SGPT) 13, Alkaline Phosphatase 51, Total Creatine Kinase 38, Creatine Kinase MB < 1.0, Creatine Kinase MB Relative Index 2.63, Troponin I < 0.02, C-Reactive Protein, Quantitative 0.81H, Total Protein 6.4, Albumin 3.3, Albumin/Globulin Ratio 1.1L, Lipase 58L 07/16/20 19:18: Urine Color LIYA, Urine Appearance CLOUDYH, Urine pH 5.0, Urine Specific [place] 1.028, Urine Protein 1+H, Urine Glucose (UA) NEGATIVE, Urine Ketones 1+H, Urine Blood NEGATIVE, Urine Nitrite NEGATIVE, Urine Bilirubin NEGATIVE, Urine Urobilinogen 4.0H, Urine Leukocyte Esterase 2+H, Urine WBC (Auto) 7H, Urine RBC (Auto) 6H, Urine Hyaline Casts (Auto) 0, Urine Bacteria (Auto) 1+H, Urine Squamous Epithelial Cells 6, Urine Mucus (Auto) SMALL, Urine Sperm (Auto) 07/16/20 19:48: Urine Opiates Screen NEGATIVE, Urine Methadone Screen NEGATIVE, Urine Barbiturates Screen NEGATIVE, Urine Phencyclidine Screen NEGATIVE, Urine Amphetamines Screen NEGATIVE, Urine Benzodiazepines Screen NEGATIVE, Urine Cocaine Metabolite Screen NEGATIVE, Urine Cannabinoids Screen NEGATIVE CBC/BMP Laboratory Tests 07/16/20 17:07 Microbiology Microbiology 07/16/20 Respiratory Virus Panel (PCR) (BRITTANIE) - Final, Complete 07/16/20 Urine Culture, Received Pending Allergies Coded Allergies: Cephalosporins (Verified Allergy, Intermediate, 08/22/19) ceftriaxone (Verified Allergy, Intermediate, hives, 03/15/20) Home Medications Scheduled Fluoxetine Hcl (Fluoxetine HCl) 20 Mg Capsule, 20 MG PO DAILY, (Reported) Metformin HCl (Metformin HCl ER) 750 Mg Tab.er.24h, 1,500 MG PO DAILY, (Reported) Nitrofurantoin Monohyd/M-Cryst (Nitrofurantoin [place]-Mcr 100 mg) 100 Mg Capsule, 100 MG PO BID, #7 Nystatin (Nystatin Oral Susp) 100,000 Unit/1 Ml Oral.susp, 5 ML PO QID for 10 Days, #200 Omeprazole (Omeprazole) 20 Mg Capsule.dr, 20 MG PO DAILY, (Reported) No122/Iron/Folic Acid ( Multi Tablet) 1 Each Tablet, 1 TAB PO DAILY, (Reported) Scheduled PRN Ondansetron HCl (Ondansetron HCl) 4 Mg Tablet, 4 MG PO TID PRN for NAUSEA OR VOMITING, (Reported) GME ATTESTATION GME ATTESTATION My faculty preceptor for this patient encounter was physically present during the encounter and was fully available. All aspects of the patient interview, examination, medical decision making process, and medical care plan development were reviewed and approved by the faculty preceptor. The faculty preceptor is aware and concurs with the plan as stated in the body of this note and will attest to such by his/her cosignature. ATTENDING NOTE The patient was seen on 2020 Please see my progress note for additional details. Ozzy Linder MD July 17, 2020 06:07 PAT LESLIE MD July 18, 2020 00:02
[2020-07-17 07:30] VITALS: BP 130/65
[2020-07-17] MEDS ORDERED: HumaLOG INSULIN (NovoLOG) PER UNIT SC SCH ×2 (07:30→21:00)
[2020-07-17] MEDS ORDERED: FLUoxetine 20 MG CAP PO SCH (09:00)
[2020-07-17] MEDS ORDERED: PRENATAL VITAMINS CHEWABLE TABLET PO SCH (09:00)
[2020-07-17] MEDS ORDERED: methylPREDNISolone 1,000 MG, VIAL MATE ADAPTER 1 EACH in NS 250 ML IV SCH (09:00)
[2020-07-17 09:31] LABS: HEMOGLOBIN 11.1 g/dl (12.0-15.5); LYMPH # 0.8 10^3/uL (1.5-5.0); LYMPH % 7.4 % (24.0-44.0); MEAN CORPUSCULAR HEMOGLOBIN 30.6 pg (27.0-33.0); MEAN CORPUSCULAR HGB CONC 35.8 g/dl (32.0-36.5); MEAN CORPUSCULAR VOLUME 85.4 fl (80.0-96.0); MONO # 0.1 10^3/uL (0.0-0.8); MONO % 0.6 % (2.0-8.0); NEUTROPHILS # 9.5 10^3/uL (1.5-8.5); NEUTROPHILS % 91.1 % (36.0-66.0); PLATELET COUNT, AUTOMATED 165 10^3/uL (150-450); RED BLOOD COUNT 3.63 10^6/uL (4.00-5.40); WHITE BLOOD COUNT 10.4 10^3/uL (4.0-10.0)
[2020-07-17 10:03] LABS: BLOOD UREA NITROGEN 7 MG/DL (7-18); CALCIUM LEVEL 8.4 MG/DL (8.5-10.1); CARBON DIOXIDE LEVEL 21 MEQ/L (21-32); CHLORIDE LEVEL 109 MEQ/L (98-107); CREATININE FOR GFR 0.46 MG/DL (0.55-1.30); GLOMERULAR FILTRATION RATE > 60.0 (>60); GLUCOSE, FASTING 206 MG/DL (70-100); POTASSIUM SERUM 3.3 MEQ/L (3.5-5.1); SODIUM LEVEL 138 MEQ/L (136-145)
[2020-07-17 12:10] VITALS: BP 103/58
--- NOTE | 2020-07-17 14:21 | IPNPDOC ---
Text Note Date of Service The patient was seen on 07/17/20. NOTE Patient admitted overnight H+P reviewed Labs reviewed Repeat UA shows no infection Clinically patient reports improvement in her symptoms She is only experiencing perioral, left finger tip and left toe numbness at this time No vertigo or difficulty walking No n/v D/w neurology this am, will see today. Patient wants to be discharged to attend her grandfather's in am. VS,Erine, I+O VS, Adambone, I+O Laboratory Tests 07/16/20 17:07 07/17/20 08:55 Vital Signs Date Time Temp Pulse Resp B/P (MAP) Pulse Ox O2 Delivery O2 Flow Rate FiO2 07/17/20 12:10 98.6 85 18 103/58 (73) 96 Room Air I&O- Last 24 Hours up to 6 AM 07/17/20 06:00 Intake Total 840 ml Output Total 0 ml Balance 840 ml DOMINIQUE RIVAS MD July 17, 2020 14:21
[2020-07-17 16:00] VITALS: BP 108/54
[2020-07-17 19:58] VITALS: BP 117/56
--- NOTE | 2020-07-17 20:23 | ECGEPIP ---
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
[2020-07-17] MEDS ORDERED: NITR100C2 PO (21:38)
[2020-07-17] MEDS ORDERED: NYST50SS PO (21:38)
--- NOTE | 2020-07-17 21:41 | DS.PDOC ---
Discharge Summary General Date of Admission July 16, 2020 at 21:41 Date of Discharge 07/17/20 915pm Attending Physician: Bita Rosado MD Specialist/Consultants Involve: SHANNAN DONG MD Discharge Summary PROCEDURES PERFORMED DURING STAY: [None]. ADMITTING DIAGNOSES: 1. Acute MS 2. Asymptomatic bacteriuria of DISCHARGE DIAGNOSES: 1. Acute MS 2. Asymptomatic bacteriuria of COMPLICATIONS/CHIEF COMPLAINT: Ms Exacerbation. HISTORY OF PRESENT ILLNESS: Ms. Alfredo is a 25 yr w MS, asthma and anxiety who has been having weakness and abnormal speech which she attributes to Acute MS; she stopped taking her chronic MS meds and declined MRI of the brain bc she was concerned that this would harm her baby; Shira Kirsten discussed the case with the Neurologist care professional who recommended starting IV steroids; she was also started on PO Macrobid for a UTI. HOSPITAL COURSE: The patient received 2 infusions of solumedrol; on the evening of July 17 she requested to be discharged so that she could attend a the next day. was ok with the plan to discharge the patient and requested that she return for 3 more days of solumedrol infusions. DISCHARGE MEDICATIONS: Please see below. ALLERGIES: Please see below. PHYSICAL EXAMINATION ON DISCHARGE: VITAL SIGNS: Please see below. GENERAL: alert / NAD LABORATORY DATA: Please see below. IMAGING: n/a PROGNOSIS: guarded ACTIVITY: [As tolerated]. DIET: regular DISCHARGE PLAN / DISCHARGE INSTRUCTIONS -d/c home tonight -return for 3 more days of IV solumedrol infusions - pickler helper scripts for Macrobid (7 more doses) & nystatin mouth wash - follow up with Neurologist at [facility] ITEMS TO FOLLOWUP ON ON OUTPATIENT: 1. Chronic MS meds DISCHARGE CONDITION: [fair]. TIME SPENT ON DISCHARGE: Approximately 25 min Vital Signs/I&Os Vital Signs Date Time Temp Pulse Resp B/P (MAP) Pulse Ox O2 Delivery O2 Flow Rate FiO2 07/17/20 19:58 100.3 107 18 117/56 (76) 96 Room Air I&O- Last 24 Hours up to 6 AM 07/17/20 06:00 Intake Total 840 ml Output Total 0 ml Balance 840 ml Laboratory Data Labs 24H Laboratory Tests 2 07/17/20 07:35: Bedside Glucose (Misc Panel) 162H 07/17/20 08:55: Immature Granulocyte % (Auto) 0.9, Neutrophils (%) (Auto) 91.1H, Lymphocytes (%) (Auto) 7.4L, Monocytes (%) (Auto) 0.6L, Eosinophils (%) (Auto) 0.0, Basophils (%) (Auto) 0.0, Neutrophils # (Auto) 9.5H, Lymphocytes # (Auto) 0.8L, Monocytes # (Auto) 0.1, Eosinophils # (Auto) 0.0, Basophils # (Auto) 0.0, Nucleated Red Blood Cells % (auto) 0.0, Anion Gap 8, Glomerular Filtration Rate > 60.0, Estimated Mean Plasma Glucose 97, Hemoglobin A1c 5.0, Calcium Level 8.4L 07/17/20 11:09: Urine Color YELLOW, Urine Appearance HAZY, Urine pH 6.0, Urine Specific [place] 1.037, Urine Protein NEGATIVE, Urine Glucose (UA) 3+H, Urine Ketones TRACEH, Urine Blood NEGATIVE, Urine Nitrite NEGATIVE, Urine Bilirubin NEGATIVE, Urine Urobilinogen 2.0H, Urine Leukocyte Esterase NEGATIVE, Urine WBC (Auto) 2, Urine RBC (Auto) 0, Urine Hyaline Casts (Auto) 0, Urine Bacteria (Auto) NEGATIVE, Urine Squamous Epithelial Cells 0, Urine Sperm (Auto) CBC/BMP Laboratory Tests 07/17/20 08:55 FSBS Laboratory Tests Test 07/17/20 07:35 Range/Units Bedside Glucose (Misc Panel) 162 70-105 MG/DL Microbiology Microbiology 07/16/20 Respiratory Virus Panel (PCR) (BRITTANIE) - Final, Complete 07/16/20 Urine Culture - Final, Complete Discharge Medications Scheduled Fluoxetine Hcl (Fluoxetine HCl) 20 Mg Capsule, 20 MG PO DAILY, (Reported) Metformin HCl (Metformin HCl ER) 750 Mg Tab.er.24h, 1,500 MG PO DAILY, (Reported) Nitrofurantoin Monohyd/M-Cryst (Nitrofurantoin [place]-Mcr 100 mg) 100 Mg Capsule, 100 MG PO BID Nystatin (Nystatin Oral Susp) 100,000 Unit/1 Ml Oral.susp, 5 ML PO QID Omeprazole (Omeprazole) 20 Mg Capsule.dr, 20 MG PO DAILY, (Reported) No122/Iron/Folic Acid ( Multi Tablet) 1 Each Tablet, 1 TAB PO DAILY, (Reported) Scheduled PRN Ondansetron HCl (Ondansetron HCl) 4 Mg Tablet, 4 MG PO TID PRN for NAUSEA OR VOMITING, (Reported) Allergies Coded Allergies: Cephalosporins (Verified Allergy, Intermediate, 08/22/19) ceftriaxone (Verified Allergy, Intermediate, hives, 03/15/20) PAT LESLIE MD July 17, 2020 21:41
== END 2020-07-17 22:10 | disposition home or self-care (01) | DRG 566 ==
LOC: M ED 13:20 → M ED INP 21:41 → ENRESERV 22:32 → M PED 07-17
PROVIDERS: ADMIT Obstetrics & Gynecology; ATTEND Internal Medicine
DX: O99.351 Diseases of the nervous system complicating pregnancy, first trimester (principal); G35 Multiple sclerosis; Z3A.13 13 weeks gestation of pregnancy; K21.9 Gastro-esophageal reflux disease without esophagitis; E28.2 Polycystic ovarian syndrome; O99.342 Other mental disorders complicating pregnancy, second trimester; F34.1 Dysthymic disorder; G43.909 Migraine, unspecified, not intractable, without status migrainosus; E80.4 Gilbert syndrome; O99.611 Diseases of the digestive system complicating pregnancy, first trimester; O99.281 Endocrine, nutritional and metabolic diseases complicating pregnancy, first trimester; Z88.1 Allergy status to other antibiotic agents; Z88.8 Allergy status to other drugs, medicaments and biological substances; Z79.84 Long term (current) use of oral hypoglycemic drugs; Z79.899 Other long term (current) drug therapy

== ENCOUNTER 2020-07-18 13:39 | Outpatient (CLI) | payer BC ==
[~2020-07-18] VITALS: Ht 152.4 cm; Wt 68.9 kg
[~2020-07-18 13:39] MED LIST changes: +METF750T36 PO; +NITR100C2 PO; +NYST50SS PO; +OMEP-218 PO; +ONDA-83 PO
[2020-07-18 14:10] VITALS: BP 111/55
[2020-07-18] MEDS ORDERED: methylPREDNISolone 1,000 MG, VIAL MATE ADAPTER 1 EACH in NS 250 ML IV ONE (16:00)
[2020-07-19] MEDS ORDERED: ACET325C5 PO (13:45)
[2020-07-19] MEDS ORDERED: [UNRECOGNIZED DRUG - CODE] IV (13:48)
== END 2020-07-18 17:25 | disposition home or self-care (01) ==
LOC: M PED 13:39 → M OPCLIPED 13:39
PROVIDERS: ATTEND Internal Medicine
DX: G35 Multiple sclerosis (principal); Z88.8 Allergy status to other drugs, medicaments and biological substances
CPT/HCPCS: 96365; J2930

== ENCOUNTER 2020-07-19 13:16 | Outpatient (CLI) | payer BC ==
[~2020-07-19] VITALS: Ht 152.4 cm; Wt 68.9 kg
[2020-07-19] MEDS ORDERED: ACET325C5 PO (13:45)
[2020-07-19] MEDS ORDERED: [UNRECOGNIZED DRUG - CODE] IV (13:48)
[2020-07-19 13:50] VITALS: BP 107/56
[2020-07-19] MEDS ORDERED: methylPREDNISolone 1,000 MG, VIAL MATE ADAPTER 1 EACH in NS 250 ML IV ONE (15:00)
== END 2020-07-19 16:06 | disposition home or self-care (01) ==
LOC: M OPCLIPED 13:16 → M PED 13:27 → M OPCLIPED 16:06
PROVIDERS: ATTEND Internal Medicine
DX: G35 Multiple sclerosis (principal); Z88.8 Allergy status to other drugs, medicaments and biological substances
CPT/HCPCS: 96365; J2930

== ENCOUNTER 2020-07-20 13:30 | Outpatient (CLI) | payer BC ==
[~2020-07-20] VITALS: Ht 152.4 cm; Wt 68.9 kg
[~2020-07-20 13:30] MED LIST changes: +ACET325C5 PO; +[UNRECOGNIZED DRUG - CODE] IV
[2020-07-20 13:35] VITALS: BP 108/58
[2020-07-20] MEDS ORDERED: methylPREDNISolone 1,000 MG, VIAL MATE ADAPTER 1 EACH in NS 250 ML IV ONE (14:00)
[2020-07-20 14:47] VITALS: BP 113/69
== END 2020-07-20 14:48 | disposition home or self-care (01) ==
LOC: M INFU 13:30
PROVIDERS: ATTEND Internal Medicine
DX: G35 Multiple sclerosis (principal); Z88.8 Allergy status to other drugs, medicaments and biological substances
CPT/HCPCS: 96365; J2930

== ENCOUNTER → 2020-10-02 | Outpatient (CLI) | payer BC ==
--- NOTE | 2020-10-02 11:33 | REP ---
INDICATION: GROWTH/LOW LYING PLACENTA CK KIDNEY. COMPARISON: 05/22/2020, report from [facility] ultrasound 08/20/2020. TECHNIQUE: Real-time sonographic evaluation of the gravid uterus performed. FINDINGS: Estimated gestational age is25 weeks 2 days, EDC 01/13/2021. Today's measurements indicate appropriate growth. Presentation: Breech Placenta anterior, grade 0, without evidence of placenta previa. The umbilical cord inserts 1 cm from the margin of the placenta. heart rate is recorded at 147 beats per minute. Amniotic fluid is subjectively normal. Closed cervical length is measured at 3.9 cm. Biometry chart: BPD: 63 mm, 25 weeks 3 days, 54th percentile. HC: 231 mm, 25 weeks 1 days, 46th percentile AC: 208 mm, 25 weeks 2 days, 50th percentile Femur length: 46 mm, 25 weeks 2 days, 50th percentile HC to AC ratio: 1.11, normal range 1.01-1.20. Estimated weight: 794g, 40th percentile. The kidneys are visualized. The renal pelvis on the right measures 6 mm in AP dimension and on the left 3 mm. IMPRESSION: Viable single intrauterine gestation as above. Mildly dilated right renal pelvis. Recommend continued follow-up. <Electronically signed by Jeremi Contreras > 10/02/20 [id number]
== END ==
LOC: M WHC 09:59
PROVIDERS: ATTEND Advanced Practice Midwife
DX: O43.192 Other malformation of placenta, second trimester (principal); Z3A.25 25 weeks gestation of pregnancy

== ENCOUNTER → 2020-10-07 | Outpatient (CLI) | payer BC ==
[~2020-10-07] MED LIST changes: -CLIN150C15 PO; +CLIN150C17 PO
[2020-10-07 13:45] LABS: HEMATOCRIT 30.8 % (36.0-47.0); HEMOGLOBIN 10.6 g/dl (12.0-15.5); MEAN CORPUSCULAR HEMOGLOBIN 31.7 pg (27.0-33.0); MEAN CORPUSCULAR HGB CONC 34.4 g/dl (32.0-36.5); MEAN CORPUSCULAR VOLUME 92.2 fl (80.0-96.0); PLATELET COUNT, AUTOMATED 164 10^3/uL (150-450); RED BLOOD COUNT 3.34 10^6/uL (4.00-5.40); WHITE BLOOD COUNT 11.6 10^3/uL (4.0-10.0)
== END ==
LOC: M PLALAB 08:28
PROVIDERS: ATTEND Advanced Practice Midwife
DX: O99.352 Diseases of the nervous system complicating pregnancy, second trimester (principal)

== ENCOUNTER → 2020-10-20 | Outpatient (REF) | payer BC | LOC: M SFHCLERA 18:48 | PROVIDERS: ATTEND Nurse Practitioner Family | DX: J06.9 Acute upper respiratory infection, unspecified (principal) ==

== ENCOUNTER → 2020-10-30 | Outpatient (CLI) | payer BC ==
--- NOTE | 2020-10-30 12:44 | REP ---
INDICATION: GROWTH, FU KIDNEYS, LOW LYING PLACENTA WITH MARGINAL I. COMPARISON: Comparison study October 02, 2020. TECHNIQUE: Transabdominal obstetric sonography. FINDINGS: Scanning through the gravid uterus demonstrates a viable single intrauterine gestation in breech lie. motion is observed and heart rate is recorded at 147 beats per minute. A anterior placenta is seen, grade 1, without evidence of placenta previa. Closed cervical length is measured at 4.6 cm transabdominally. No extrauterine abnormality is observed. Amniotic fluid is subjectively normal. No anomaly is seen. The following anatomic structures are identified and felt to be sonographically unremarkable: cranium, choroid plexus, cavum, cerebellum and posterior fossa, face and profile, lungs, four-chamber heart with left and right ventricular outflow tract views, diaphragm, left-sided stomach, abdominal wall cord insertion, three-vessel umbilical cord, kidneys and bladder, spine, and lower extremities. lower extremities are seen. Upper extremities are less than optimally visualized due to position. Renal pelves are 3 mm bilaterally which is normal. No eddy hydronephrosis seen. Biometry chart: And BPD 7.4 cm, 29 weeks 6 days Head circumference 27.5 cm, 30 weeks 0 days Abdominal circumference 25.0 cm, 29 weeks 2 days Femur length 5.6 cm, 29 weeks 2 2 days HC AC ratio normal 1.10 Cephalic index normal 0.75 Estimated weight 1379 g, 3 lb 0 oz, 39th percentile for 29 weeks 2 days MELVIN normal 16.8 cm SD ratio in the umbilical cord artery by Doppler normal 2.69 IMPRESSION: Viable single intrauterine gestation at 29 weeks 4 days by today's composite sonographic criteria. CARYN by today's sonography January 11, 2021. No complication identified. Expected gestational age estimate based on earlier sonography 29 weeks 2 days, CARYN by prior sonography 13 January 2021. Appropriate interval growth. <Electronically signed by Taye Danielson > 10/30/20 [id number]
== END ==
LOC: M WHC 09:53
PROVIDERS: ATTEND Advanced Practice Midwife
DX: O43.192 Other malformation of placenta, second trimester (principal)

== ENCOUNTER → 2020-11-27 | Outpatient (CLI) | payer MEDICAID ==
--- NOTE | 2020-11-27 10:02 | REP ---
INDICATION: GROWTH, MARGINAL UMBILICAL CORD AFFECTING MANAGEMENT COMPARISON: 10/30/2020 TECHNIQUE: Transabdominal obstetrical ultrasound with color Doppler evaluation. FINDINGS: Examination demonstrates a single live intrauterine in cephalic presentation. motion is identified by technologist. Placenta is noted anterior and grade 2 without evidence for placenta previa or abruption. Marginal insertion of the cord on placenta is again noted. No evidence for Vasa previa identified. Amniotic fluid volume is normal. Cervix measures 3.2 cm in length and appears closed.. Selected gestational age: 33 weeks 2 days with CARYN 01/13/2021. Gestational age by current measurements 33 weeks 4 days with CARYN 01/11/2021. FHR equals 139 beats per minute. Estimated weight 2256 grams (54thpercentile). MELVIN: 15.8 cm (8.2-24.6) IMPRESSION: Single live intrauterine in cephalic presentation demonstrating appropriate estimated weight. Amniotic fluid volume is normal. Marginal placental cord insertion again noted. <Electronically signed by Misha Arce > 11/27/20 [id number]
== END ==
LOC: M WHC 09:33
PROVIDERS: ATTEND Advanced Practice Midwife
DX: Z36.9 Encounter for antenatal screening, unspecified (principal); Z3A.33 33 weeks gestation of pregnancy

== ENCOUNTER 2020-12-17 13:49 | Outpatient (CLI) | payer MEDICAID ==
[~2020-12-17] VITALS: Ht 152.4 cm; Wt 77.3 kg
[~2020-12-17 13:49] MED LIST changes: +COLA100C5 PO; +COPA20IN SC; +FERR325T3 PO
[2020-12-17 14:43] VITALS: BP 93/58
[2020-12-17] MEDS ORDERED: CLIN-250 (14:49)
[2020-12-17 16:39] LABS: APPEARANCE, URINE CLOUDY (CLEAR); BACTERIA, URINE AUTO 1+ (NEGATIVE); BILIRUBIN, URINE AUTO 2+ (NEGATIVE); BLOOD, URINE BLOOD NEGATIVE (NEGATIVE); CALCIUM OXALATE CRYSTALS SMALL; COLOR, URINE AMBER (YELLOW); GLUCOSE, URINE (UA) AUTO NEGATIVE (NEGATIVE); KETONE, URINE AUTO 1+ mg/dL (NEGATIVE); LEUKOCYTE ESTERASE, URINE AUTO 1+ (NEGATIVE); MUCUS, URINE LARGE (NEGATIVE); NITRITE, URINE AUTO NEGATIVE (NEGATIVE); PROTEIN, URINE AUTO 2+ mg/dL (NEGATIVE); RBC, URINE AUTO 7 /HPF (0-3); SPECIFIC GRAVITY URINE AUTO 1.042 (1.002-1.035); SQUAMOUS EPITHELIAL CELL UR AU 17 /HPF (0-6); WBC, URINE AUTO 22 /HPF (0-3)
[2020-12-17] MEDS ORDERED: HOME MED LIST COMPLETE! XX SCH (17:15)
--- NOTE | 2020-12-17 17:59 | IPNPDOC ---
Text Note Date of Service The patient was seen on 12/17/20. NOTE S: 25 yo at 35 6/7 weeks gestation presents with uterine contractions starting early this morning. She was treated for a pilonidal abscess today by family medicine, and put on Clindamycin. She has a h/o MS. S: AVSS NAD Abd: NT, gravid FHT: Category I toco: irregular, mild SVE: cx L/C/P ext: NT A/P 25 yo at 35 6/7 weeks with contractions, not in labor Pt reassured discharge home fu office 1 week as scheduled VS,Fishbone, I+O VS, Fishbone, I+O Vital Signs Date Time Temp Pulse Resp B/P (MAP) Pulse Ox O2 Delivery O2 Flow Rate FiO2 12/17/20 14:43 97.7 114 18 93/58 (70) JULIO CESAR CHIANG MD Dec 17, 2020 17:59
== END 2020-12-17 18:00 | disposition home or self-care (01) ==
LOC: M LDO 13:49
PROVIDERS: ATTEND Specialist
DX: O60.03 Preterm labor without delivery, third trimester (principal); L05.01 Pilonidal cyst with abscess; Z3A.35 35 weeks gestation of pregnancy; O99.891 Other specified diseases and conditions complicating pregnancy; O99.353 Diseases of the nervous system complicating pregnancy, third trimester

== ENCOUNTER → 2020-12-24 | Outpatient (REF) | payer MEDICAID ==
[~2020-12-24] MED LIST changes: +CLIN-250
== END ==
LOC: M SFHCWAGY 17:15
PROVIDERS: ATTEND Advanced Practice Midwife
DX: O99.353 Diseases of the nervous system complicating pregnancy, third trimester (principal)

== ENCOUNTER → 2020-12-25 | Outpatient (CLI) | payer BC ==
--- NOTE | 2020-12-25 12:18 | REP ---
INDICATION: GROWTH, CORD INSERTION. COMPARISON: 12/02/2020. TECHNIQUE: Real-time sonographic evaluation of the gravid uterus performed. FINDINGS: Estimated gestational age is37 weeks 0 days, EDC 01/15/2021. Today's measurements indicate appropriate growth. Presentation: Cephalic Placenta anterior, grade 2, without evidence of placenta previa. heart rate is recorded at 156 beats per minute. Amniotic fluid is subjectively normal. MELVIN 16.7, normal range 7.5-24.4. Closed cervical length is measured at 3.5 cm. SD ratio umbilical artery 2.27, normal 1.59-3.43. RI 0.56, normal 0.43-0.70. Cord insertion appears to be in the mid placenta. Biometry chart: BPD: 92 mm, 37 weeks 3 days, 56th percentile. HC: 329 mm, 37 weeks 3 days, 57th percentile AC: 337 mm, 37 weeks 4 days, 59th percentile Femur length: 71 mm, 36 weeks 4 days, 43rd percentile HC to AC ratio: 0.98, normal range 0.91-1.10. Estimated weight: 3174g, 64th percentile. IMPRESSION: Viable single intrauterine gestation as above. <Electronically signed by Jeremi Contreras > 12/25/20 [id number]
== END ==
LOC: M WHC 09:48
PROVIDERS: ATTEND Advanced Practice Midwife
DX: O43.192 Other malformation of placenta, second trimester (principal)

== ENCOUNTER 2020-12-29 08:46 | Outpatient (CLI) | payer BC, MEDICAID, OTHER, SELFPAY ==
[~2020-12-29] VITALS: Ht 152.4 cm; Wt 77.7 kg
[2020-12-29] MEDS ORDERED: IRON SUCROSE 500 MG in NS 250 ML OVER 4 HRS IV ONE (09:00)
[2020-12-29 09:01] VITALS: BP 115/68
[2020-12-29 10:00] VITALS: BP 133/66
[2020-12-29 11:00] VITALS: BP 120/78
[2020-12-29 12:00] VITALS: BP 110/60
[2020-12-29 13:35] VITALS: BP 117/66
[2020-12-29 14:00] VITALS: BP 119/81
== END 2020-12-29 14:00 | disposition home or self-care (01) ==
LOC: M INFU 08:46
PROVIDERS: ATTEND Advanced Practice Midwife
DX: D64.9 Anemia, unspecified (principal); Z88.8 Allergy status to other drugs, medicaments and biological substances
CPT/HCPCS: 96365; 96366; J1756

== ENCOUNTER 2021-01-02 20:17 | Outpatient (CLI) | payer MEDICAID, OTHER ==
[~2021-01-02] VITALS: Ht 152.4 cm; Wt 77.8 kg
[2021-01-02 20:36] VITALS: BP 122/54
--- NOTE | 2021-01-02 21:53 | IPNPDOC ---
Obstetrical Progress Note Date of Service Jan 02, 2021 Subjective S: Maci is a 25 y.o. at 38 1/7 with CARYN of 01/15/21 as established by first trimester ultrasound who presents to labor and delivery triage with concerns of decreased movement. Her has been complicated by a marginal cord insertion, MS, depression, GERD, obesity, anemia, and history of tobacco use. Patient denies loss of fluids, vaginal bleeding, or pelvic pain. She noted a decrease in movement this am. She also notes rhinorrhea and non-productive cough for four days. Patient denies fever or shortness of breath. O: VS-see below, afebrile. General-alert and oriented x 3. Respiratory-breathing comfortably on room air. Cardiac-regular rate and rhythm, no murmur Abdomen-soft, nontender. Uterine contraction palpated as moderate. FHR 140, Reassuring Tracing. Intermittent uterine contractions noted. Limited bedside ultrasound confirms cephalic presentation with MVP 5.4cm and MELVIN of 15cm. A: IUP at 38 1/7 with reassuring maternal and status. Reassuring modified BPP. Respiratory symptoms-COVID negative. P: F/U as outpatient on 01/06/21 as scheduled Patient offered reassurance regarding status. Third trimester precautions reviewed. REN ALVES DO Jan 02, 2021 21:53
== END 2021-01-02 22:11 | disposition home or self-care (01) ==
LOC: M LDO 20:17
PROVIDERS: ATTEND Obstetrics & Gynecology
DX: O36.8130 Decreased fetal movements, third trimester, not applicable or unspecified (principal); O43.123 Velamentous insertion of umbilical cord, third trimester; O99.891 Other specified diseases and conditions complicating pregnancy; G35 Multiple sclerosis; O99.013 Anemia complicating pregnancy, third trimester; Z3A.38 38 weeks gestation of pregnancy
CPT/HCPCS: 59025; 76815; U0002

== ENCOUNTER 2021-01-08 12:52 | Inpatient (IN) | payer OTHER ==
[~2021-01-08] VITALS: Ht 152.4 cm; Wt 79.1 kg
[2021-01-08] VITALS (9 sets, daily range): BP systolic 110–132; BP diastolic 54–85
[2021-01-08] MEDS ORDERED: IMIT50TA PO (13:16)
[2021-01-08] MEDS ORDERED: ZOFR4TAB16 PO (13:16)
[2021-01-08] MEDS ORDERED: ACET325C5 PO (13:16)
[2021-01-08] MEDS ORDERED: FERR324T21 PO (13:17)
[2021-01-08] MEDS ORDERED: HOME MED LIST COMPLETE! XX SCH (13:20)
[2021-01-08] MEDS ORDERED: LACTATED RINGER'S 1000 ML IV STA (14:13)
[2021-01-08] MEDS ORDERED: METHYLERGONOVINE MALEATE 0.2 MG/ML VIAL (J2210) IM PRN (14:15)
[2021-01-08] MEDS ORDERED: OXYTOCIN DRIP 30 UNITS in IV 1 EA IV PRN (14:15)
[2021-01-08] MEDS ORDERED: LIDOCAINE 1% MDV 20ML VIAL INFIL PRN (14:15)
--- NOTE | 2021-01-08 14:47 | HPEPDOC ---
Obstetrical History & Physical General Date of Admission Jan 08, 2021 at 12:52 History of Present Illness Chief Complaint: Induction of labor (due to MS) Information Provided By: Patient Age: 25 : 2 Term: 1 Pre-term: 0 Abortions: 0 Livin Dating Final EDC by: LMP EGA at Admission: 39 Antepartum Course Pre- weight (lbs.): 151 Admission Weight (lbs.): 172 Past Medical History Past Obstetrical History : Past Obstetrical History: Primgravida (2018) Type of Delivery: Spontaneous Vaginal Del. Sex of Infant: Female (7#4) Complications: No MANAGER STRATEGIC SOURCING History: Other (PCOS) Past Medical History Medical History MS Surgical History: Appendectomy, Tonsilectomy, Other (pilonidal cyst) Family History Significant Family History: Cancer, Heart disease Social History Marital Status: Family situation: Spouse/partner home Psychosocial History: Depression * Smoker: former Smoker Alcohol: Denies Drugs: denies Abuse Violence Screening Have you been hit/kicked/slapp: No Have you been sexually assault: No Imunizations Tdap status: current Allergies Coded Allergies: Cephalosporins (Verified Allergy, Intermediate, 08/22/19) cefaclor (Verified Allergy, Intermediate, HIVES, 01/08/21) ceftriaxone (Verified Allergy, Intermediate, hives, 03/15/20) Medications Scheduled Docusate Sodium (Colace) 100 Mg Capsule, 100 MG PO DAILY Ferrous Gluconate (Ferrous Gluconate) 324 Mg Tablet, 1 TAB PO DAILY for iron Glatiramer Acetate (Copaxone) 20 Mg/1 Ml Syringe, 20 MG SC 3XW Omeprazole (Omeprazole) 20 Mg Capsule.dr, 20 MG PO DAILY No122/Iron/Folic Acid ( Multi Tablet) 1 Each Tablet, 1 TAB PO DAILY Scheduled PRN Acetaminophen (Tylenol) 325 Mg Capsule, 650 MG PO Q4HP PRN for MILD DISCOMFORT Ondansetron HCl (Zofran) 4 Mg Tablet, 1 TAB PO Q6HP PRN for NAUSEA Sumatriptan Succinate (Imitrex) 50 Mg Tablet, 1 TAB PO BIDP PRN for HEADACHE Physical Examination Physical Examination GENERAL: Alert and oriented times three. BREAST: . ABDOMEN: Gravid and non-tender to touch. FETUS: Is vertex (VTX) by sterile vaginal examination (SVE), fetus is vertex (VTX) by Kalyan. EFW 7.5-8# HEART RATE: Regular rate and rhythm. LUNGS: Clear to auscultation (CTA). EXTREMITIES: No edema. No clonus. Deep tendon reflexes (DTRs) + 2. Vital Signs/I&O Vital Signs Date Time Temp Pulse Resp B/P (MAP) Pulse Ox O2 Delivery O2 Flow Rate FiO2 01/08/21 13:08 98 Room Air 01/08/21 13:06 98.1 112 16 128/85 (99) Laboratory Data 24H LABS Laboratory Tests 2 01/08/21 13:06: Serology Scanned Report Hepatitis B Testing Pertinent Laboratoy Data Blood Type: O+ RBC Antibody Screen: Negative HIV: Negative Hepatitis B: Negative Hepatitis C: Negative Rapid Plasma Reagin: Nonreactive Rubella: Immune Chlamydia/Gonorrhea: Negative Group B Streptococcus: Negative Diag/Inter Therapy Low risk NIPT Anatomy Ultrasound Ultrasound Date: Oct 02, 2020 Placenta Location: Anterior Normal Anatomy: Yes (mild pelviectasis) Placenta Previa: No Estimated Weight (grams): 794 (40%) Other Ultrasounds 05/02/20 bleeding, dating subchorionic hematoma, 6w0d + FH 10/02/2020 f/u PNC sono 25w2d, breech, anterior, no previa, cord insertion 1cm from placental margin, normal fluid 794gm 40%, mild renal pelviectasis 10/30/2020 anterior placenta, normal f/u anatomy, 1379gm 39%, 29w2d, S/D ratio 2.69 11/27/2020 cephalic, marginal cord insertion noted, no vasa previa, 33w4d, 2256gm 54% Steroid Therapy Steroid Therapy: No Vaginal Examination Dilation: 2cm Effacement: 50% Station: -3 Cervical Consistency: Soft Cervical Position: Posterior Presentation: Cephalic presentation Assessment Heart Rate (FHR): 125 Variability: Moderate Accelerations: Positive Decelerations: None Tocometer Contractions: Yes Frequency: irregular Strength: palpated as mild Assessment/Plan Assessment Maci is a 25-year-old (G)2 para (P)1-0-0-1 at 39+0 weeks by 6-week ultrasound. Presents to Labor and Delivery (L&D) induction of labor due to symptomatic MS. She has been seen by neuorimmunology and PNC for management during . She denies LOF, bleeding or regular UC. Fetus is active. Plan Admit and orient. Java Core Developer and consent. Diet: regular. Group B Streptococcus (GBS) negative. Labs and intravenous (IV) per unit protocol. Counseled on misoprostol, Pitocin and induction of labor (IOL). Lactated Ringers (LR): Bolus 500 mL, then saline lock. Plans epidural Anticipate normal spontaneous delivery (). C-S as appropriate. Myriam Sierra CNM Jan 08, 2021 14:47
[2021-01-08 15:00] LABS: HEMATOCRIT 29.6 % (36.0-47.0); HEMOGLOBIN 10.4 g/dl (12.0-15.5); MEAN CORPUSCULAR HEMOGLOBIN 31.5 pg (27.0-33.0); MEAN CORPUSCULAR HGB CONC 35.1 g/dl (32.0-36.5); MEAN CORPUSCULAR VOLUME 89.7 fl (80.0-96.0); PLATELET COUNT, AUTOMATED 182 10^3/uL (150-450)
[2021-01-08] MEDS ORDERED: miSOPROStol 50MCG 1/2 TABLET PO SCH (15:00)
[2021-01-08] MEDS ORDERED: OXYTOCIN DRIP 30 UNITS in IV 1 EA IV SCH (19:05)
--- NOTE | 2021-01-08 19:05 | IPNPDOC ---
Obstetrical Progress Note Date of Service Jan 08, 2021 Subjective coping well with contractions Objective Vital Signs Date Time Temp Pulse Resp B/P (MAP) Pulse Ox O2 Delivery O2 Flow Rate FiO2 01/08/21 17:50 98.4 88 16 98 Room Air 01/08/21 16:58 114/64 (81) Assessment Heart Rate (FHR): 140 Variability: Moderate Accelerations: Positive Decelerations: None Heart Rate Tracing: Category I Tocometer Contractions: Yes Frequency: irregular Sterile Vaginal Examination Dilation: 2cm Effacement (%): 50% Station: -2 Cervical Consistency: Soft Cervical Position: Middle Postion/Presentation: Cephalic presentation Assessment and Plan Age: 25 : 2 Term: 1 Pre-term: 0 Abortions: 0 Livin EGA at Admission: 39 Status: Reassuring Group B Streptococcus: Negative Anticipate: Vaginal Delivery Additional Comments Counselled patient on continuing induction with start of IV Pitocin. Myriam Sierra CNM Jan 08, 2021 19:05
[2021-01-08] MEDS: LR 1,000 ML IV SCH ×2 (19:18→23:19)
[2021-01-08] MEDS ORDERED: CALCIUM CARBONATE 500 MG CHEW U/D PO PRN (22:55)
[2021-01-08] MEDS ORDERED: ONDANSETRON 4MG/2ML VIAL IV PRN ×2 (23:00→23:05)
[2021-01-09] VITALS (39 sets, daily range): BP systolic 103–135; BP diastolic 55–87
--- NOTE | 2021-01-09 01:05 | IPNPDOC ---
Obstetrical Progress Note Date of Service Jan 09, 2021 Subjective coping well with contractions, pt with SROM at 1255 am Objective Vital Signs Date Time Temp Pulse Resp B/P (MAP) Pulse Ox O2 Delivery O2 Flow Rate FiO2 01/08/21 21:31 107 16 118/70 (86) 01/08/21 19:00 98.3 Room Air 01/08/21 17:50 98 Assessment Heart Rate (FHR): 135 Variability: Moderate Accelerations: Positive Decelerations: None Heart Rate Tracing: Category I Tocometer Contractions: Yes Frequency: every 2-5 min. Strength: palpated as strong Sterile Vaginal Examination Dilation: 4 cm Effacement (%): 50% Station: -2 Cervical Consistency: Soft Cervical Position: Middle Postion/Presentation: Cephalic presentation Assessment and Plan Age: 35 : 2 Term: 1 Pre-term: 0 Abortions: 0 Livin Status: Reassuring Group B Streptococcus: Negative Anticipate: Vaginal Delivery Additional Comments SROM with large amount of clear fluid. Patient would like epidural. Myriam Sierra CNM Jan 09, 2021 01:05
[2021-01-09] MEDS ORDERED: FENTANYL 2MCG/ML ROPIVACAINE 0.2% IN 0.9% NACL 100ML IVBAG As Ordered ONE (01:12)
[2021-01-09] MEDS ORDERED: NALOXONE INJ 0.4MG/1ML VIAL (J2310 PER 1MG) IV PRN (01:37)
[2021-01-09] MEDS ORDERED: LACTATED RINGER'S 1000 ML IV PRN (01:37)
[2021-01-09] MEDS ORDERED: EPIDURAL COMMENT XX SCH (01:37)
[2021-01-09] MEDS ORDERED: REFRIGERATOR IV KEYS XX PRN (01:37)
[2021-01-09] MEDS ORDERED: FENTANYL/ROPIVACAINE/NACL BAG 100 ML EPIDURAL SCH (01:37)
[2021-01-09] MEDS ORDERED: ONDANSETRON 4MG/2ML VIAL IV PRN (01:37)
[2021-01-09] MEDS ORDERED: ePHEDrine SULFATE 25 MG/5 ML(5MG/ML) SYRINGE IV PRN (01:37)
[2021-01-09] MEDS ORDERED: diphenhydrAMINE 50MG/ML VIAL (J1200) IV PRN (01:37)
[2021-01-09] MEDS ORDERED: EPIDURAL/PCA KEYS XX PRN (01:37)
[2021-01-09] MEDS ORDERED: ePHEDrine SULFATE 25 MG/5 ML(5MG/ML) SYRINGE As Ordered ONE (03:16)
--- NOTE | 2021-01-09 03:56 | IPNPDOC ---
Obstetrical Progress Note Date of Service Jan 09, 2021 Subjective coping well with contractions Objective Vital Signs Date Time Temp Pulse Resp B/P (MAP) Pulse Ox O2 Delivery O2 Flow Rate FiO2 01/09/21 01:59 97.4 70 18 112/57 (75) Room Air 01/08/21 17:50 98 Assessment Heart Rate (FHR): 150 Variability: Minimal to moderate Accelerations: Positive Decelerations: Late Heart Rate Tracing: Category II Tocometer Contractions: Yes Frequency: every 2-5 min. Strength: palpated as strong Sterile Vaginal Examination Dilation: 6 cm Effacement (%): 80% Station: -1 Cervical Consistency: Soft Cervical Position: Middle Postion/Presentation: Cephalic presentation Assessment and Plan Age: 25 : 2 Term: 1 Pre-term: 0 Abortions: 0 Livin EGA at Admission: 39.4 Status: Reassuring Group B Streptococcus: Negative Anticipate: Vaginal Delivery Additional Comments FSE placed with consent Myriam Sierra CNM Jan 09, 2021 03:56
[2021-01-09] MEDS: LR 1,000 ML IV SCH (04:12)
--- NOTE | 2021-01-09 04:35 | IPNPDOC ---
Obstetrical Progress Note Date of Service Jan 09, 2021 Subjective comfortable with epidural Objective Vital Signs Date Time Temp Pulse Resp B/P (MAP) Pulse Ox O2 Delivery O2 Flow Rate FiO2 01/09/21 03:46 98.3 65 16 118/69 (85) 01/09/21 01:59 Room Air 01/08/21 17:50 98 Assessment Heart Rate (FHR): 130 Variability: Minimal to moderate Decelerations: Late, Recurrent Heart Rate Tracing: Category II Tocometer Contractions: Yes Frequency: every 2-5 min. Assessment and Plan Age: 25 : 2 Term: 1 Pre-term: 0 Abortions: 0 Livin Group B Streptococcus: Negative Additional Comments Telephone call to Dr Baum, updated on status and presence of recurrent late decelerations, bedside evaluation requested. Patient aware of need for physician assessment. Myriam Sierra CNM Jan 09, 2021 04:35
[2021-01-09 06:49] LABS: CORD GAS ABE V -3.8; CORD GAS HCO3 V 21.7 MEQ/L; CORD GAS PCO2 V 41.1 mmHg; CORD GAS PH V 7.34 UNITS; CORD GAS PO2 V 38.9 mmHg; CORD GAS TCO2 V 22.9 MEQ/L
[2021-01-09 06:51] LABS: CORD GAS ABE A -5.5; CORD GAS HCO3 A 19.2 MEQ/L; CORD GAS PH A 7.345 UNITS; CORD GAS PO2 A 45.9 mmHg; CORD GAS SBC A 19.9 MEQ/L; CORD GAS TCO2 A 20.3 MEQ/L
[2021-01-09] MEDS ORDERED: SUMAtriptan SUCCINATE 25 MG TAB PO PRN (06:55)
[2021-01-09] MEDS ORDERED: ONDANSETRON 4 MG TAB PO PRN (06:55)
[2021-01-09] MEDS ORDERED: IBUPROFEN 600MG TAB PO PRN (07:05)
[2021-01-09] MEDS ORDERED: DIBUCAINE 1% OINTMENT 30GM TOP PRN (07:05)
[2021-01-09] MEDS ORDERED: ACETAMINOPHEN TAB 650MG DOSE (2X325MG) PO PRN (07:05)
[2021-01-09] MEDS ORDERED: MOM 30ML SUSPENSION UDC PO PRN (07:05)
[2021-01-09] MEDS ORDERED: RHOGAM 300 MCG (1500 IU) INJ (J2790) IM SCH (07:05)
[2021-01-09] MEDS ORDERED: ANUSOL HC CREAM 30GM TOP PRN (07:05)
[2021-01-09] MEDS ORDERED: IBUPROFEN 800 MG TAB PO PRN (07:05)
[2021-01-09] MEDS ORDERED: MEASLES,MUMPS,RUBELLA VACCINE INJ (MMR-II) (90707) SC SCH (07:05)
--- NOTE | 2021-01-09 07:05 | DNPDOC ---
[facility] Delivery Note Delivery Note DATE OF DELIVERY: 01/09/2021 PREDELIVERY DIAGNOSIS: 39 1/7 weeks' gestation and labor. POST DELIVERY DIAGNOSIS: Delivered. PROCEDURE: Spontaneous vaginal delivery. PROVIDER: Myriam Sierra CNM and CYNTHIA More ANESTHESIA: epidural. ESTIMATED BLOOD LOSS: 400 mL. FINDINGS: 7 pound 5 ounce, 3310 gram, live male , Score 9/9, loose nuchal cord times x 1, marginal cord insertion. DELIVERY SUMMARY: Maci is a 25-year-old 2 now para 2001 who was admitted to labor and delivery for IOL. Her labor was induced with misoprostol and IV Pitocin. She received an epidural for pain management. She pushed to a live male at 0634 in the CANDIS position with restitution to LOT, loose nuchal cord x 1. The anterior shoulder was delivered with gentle downward guidance and the corpus followed. The was placed on the maternal abdomen crying with stimulation. The three vessel cord was clamped and cut by the father of the baby under my direction. Cord gases obtained, arterial 7.345, BE -5.5; venous 7.340, BE -3.8. The placenta was delivered at 0642 via Cisneros mechanism, marginal cord insertion noted. The cervix, vagina, and perineum was inspected and a right labial abrasion was noted. No repair required. Hemostasis of the uterus was achieved with use of IV Pitocin and misoprostol. Mom plans to breastfeed. Mom and are in stable condition, she has decided to name her son Rolo. All counts of instruments and sponges are correct. Myriam Sierra CNM Jan 09, 2021 07:05
[2021-01-09] MEDS: OMEPRAZOLE 20 MG CAP PO SCH (08:32)
[2021-01-09] MEDS: DOCUSATE SODIUM 100MG CAPSULE PO SCH (08:33)
[2021-01-09] MEDS: PRENATAL VITAMINS CHEWABLE TABLET PO SCH (08:33)
[2021-01-09] MEDS: FERROUS GLUCONATE 324 MG TAB PO SCH (08:33)
[2021-01-09] MEDS: ACETAMINOPHEN 500 MG TAB PO PRN ×2 (10:56→16:58)
[2021-01-09] MEDS ORDERED: ENTER DRUG NAME HERE (PATIENT'S OWN MED) SC SCH (18:00)
[2021-01-10 06:00] VITALS: BP 121/59
[2021-01-10] MEDS: DOCUSATE SODIUM 100MG CAPSULE PO SCH (08:35)
[2021-01-10] MEDS: OMEPRAZOLE 20 MG CAP PO SCH (08:35)
[2021-01-10] MEDS: PRENATAL VITAMINS CHEWABLE TABLET PO SCH (08:36)
[2021-01-10] MEDS: FERROUS GLUCONATE 324 MG TAB PO SCH (08:36)
[2021-01-10] MEDS: ACETAMINOPHEN 500 MG TAB PO PRN (12:10)
== END 2021-01-10 19:12 | disposition home or self-care (01) | DRG 560 ==
LOC: M LDI 12:52 → M OBS 01-09 09:31
PROVIDERS: ADMIT Advanced Practice Midwife; ATTEND Advanced Practice Midwife
PROC: 3E0P7GC Introduction of Other Therapeutic Substance into Female Reproductive, Via Natural or Artificial Opening (ICD-10-PCS; 2021-01-08)
PROC: 10E0XZZ Delivery of Products of Conception, External Approach (ICD-10-PCS; principal; 2021-01-09)
DX: O99.354 Diseases of the nervous system complicating childbirth (principal); G35 Multiple sclerosis; Z3A.39 39 weeks gestation of pregnancy; O69.81X0 Labor and delivery complicated by cord around neck, without compression, not applicable or unspecified; Z37.0 Single live birth; O76 Abnormality in fetal heart rate and rhythm complicating labor and delivery

== ENCOUNTER → 2021-03-17 | Outpatient (REF) ==
[~2021-03-17] MED LIST changes: +FERR324T21 PO; +OMEP-173; +OMEP-173 PO; -OMEP-218; -OMEP-218 PO; +ZOFR4TAB16 PO; +[UNRECOGNIZED DRUG - CODE] IV; -[UNRECOGNIZED DRUG - CODE] IV
== END ==
LOC: M LABSMTC 09:51
PROVIDERS: ATTEND Pediatrics
DX: Z11.52 Encounter for screening for COVID-19 (principal)

== ENCOUNTER 2021-04-12 11:36 | Outpatient (CLI) | payer OTHER ==
[~2021-04-12] VITALS: Ht 154.9 cm; Wt 78.1 kg
[~2021-04-12 11:36] MED LIST changes: +ALBUTEROL SULFATE 2.5 MG/0.5 ML INH NEB SOLN INH PRN; +EPINEPHrine INJ 1 MG/ML 1ML AMP IM PRN; +diphenhydrAMINE 50MG/ML VIAL (J1200) IV PRN; +methylPREDNISolone 125MG 2ML VIAL IV PRN
[2021-04-12 11:45] VITALS: BP 115/77
[2021-04-12] MEDS ORDERED: NS 1,000 ML IV SCH (12:00)
[2021-04-12] MEDS ORDERED: NATALIZUMAB OVER 1 HOUR IV ONE ×2 (12:00)
[2021-04-12 13:26] VITALS: BP 115/77
[2021-04-12 13:41] VITALS: BP 111/69
[2021-04-12 14:15] VITALS: BP 121/76
== END 2021-04-12 14:15 | disposition home or self-care (01) ==
LOC: M INFU 11:36
PROVIDERS: ATTEND Physician Assistant
DX: G35 Multiple sclerosis (principal); Z88.8 Allergy status to other drugs, medicaments and biological substances
CPT/HCPCS: 96365; J2323

== ENCOUNTER 2021-04-28 08:03 | Outpatient (CLI) | payer OTHER ==
[~2021-04-28] VITALS: Ht 152.4 cm; Wt 66.3 kg
[~2021-04-28 08:03] MED LIST changes: -ALBUTEROL SULFATE 2.5 MG/0.5 ML INH NEB SOLN INH PRN; -EPINEPHrine INJ 1 MG/ML 1ML AMP IM PRN; -diphenhydrAMINE 50MG/ML VIAL (J1200) IV PRN; +methylPREDNISolone 1,000 MG, VIAL MATE ADAPTER 1 EACH in NS 250 ML IV ONE; -methylPREDNISolone 125MG 2ML VIAL IV PRN
[2021-04-28 08:15] VITALS: BP 124/61
[2021-04-28 09:25] VITALS: BP 121/64
== END 2021-04-28 09:25 | disposition home or self-care (01) ==
LOC: M INFU 08:03
PROVIDERS: ATTEND Physician Assistant
DX: G35 Multiple sclerosis (principal); Z88.8 Allergy status to other drugs, medicaments and biological substances
CPT/HCPCS: 96365; J2930

== ENCOUNTER 2021-04-29 08:55 | Outpatient (CLI) | payer OTHER ==
[~2021-04-29] VITALS: Ht 152.4 cm; Wt 66.3 kg
[~2021-04-29 08:55] MED LIST changes: -methylPREDNISolone 1,000 MG, VIAL MATE ADAPTER 1 EACH in NS 250 ML IV ONE
[2021-04-29] MEDS ORDERED: methylPREDNISolone 1,000 MG, VIAL MATE ADAPTER 1 EACH in NS 250 ML IV ONE (09:00)
[2021-04-29 10:30] VITALS: BP 122/69
== END 2021-04-29 10:30 | disposition home or self-care (01) ==
LOC: M INFU 08:55
PROVIDERS: ATTEND Physician Assistant
DX: G35 Multiple sclerosis (principal); Z88.8 Allergy status to other drugs, medicaments and biological substances
CPT/HCPCS: 96365; J2930

== ENCOUNTER 2021-04-30 08:41 | Outpatient (CLI) | payer OTHER ==
[~2021-04-30] VITALS: Ht 152.4 cm; Wt 66.3 kg
[~2021-04-30 08:41] MED LIST changes: +methylPREDNISolone 1,000 MG, VIAL MATE ADAPTER 1 EACH in NS 250 ML IV ONE
[2021-04-30 08:45] VITALS: BP 118/69
[2021-04-30 10:00] VITALS: BP 119/67
== END 2021-04-30 10:00 | disposition home or self-care (01) ==
LOC: M INFU 08:41
PROVIDERS: ATTEND Physician Assistant
DX: G35 Multiple sclerosis (principal); Z88.8 Allergy status to other drugs, medicaments and biological substances
CPT/HCPCS: 96365; J2930

== ENCOUNTER 2021-05-03 13:29 | Outpatient (CLI) | payer OTHER ==
[~2021-05-03] VITALS: Ht 152.4 cm; Wt 66.3 kg
[~2021-05-03 13:29] MED LIST changes: -methylPREDNISolone 1,000 MG, VIAL MATE ADAPTER 1 EACH in NS 250 ML IV ONE
[2021-05-03] MEDS ORDERED: methylPREDNISolone 1,000 MG, VIAL MATE ADAPTER 1 EACH in NS 250 ML IV ONE (13:30)
[2021-05-03 13:35] VITALS: BP 110/56
[2021-05-03 14:50] VITALS: BP 129/75
== END 2021-05-03 14:50 | disposition home or self-care (01) ==
LOC: M INFU 13:29
PROVIDERS: ATTEND Physician Assistant
DX: G35 Multiple sclerosis (principal); Z88.8 Allergy status to other drugs, medicaments and biological substances
CPT/HCPCS: 96365; J2930

== ENCOUNTER 2021-05-04 13:51 | Outpatient (CLI) | payer OTHER ==
[~2021-05-04] VITALS: Ht 152.4 cm; Wt 66.0 kg
[~2021-05-04 13:51] MED LIST changes: +methylPREDNISolone 1,000 MG, VIAL MATE ADAPTER 1 EACH in NS 250 ML IV ONE
[2021-05-04 14:03] VITALS: BP 122/63
[2021-05-04 15:09] VITALS: BP 120/62
== END 2021-05-04 15:10 | disposition home or self-care (01) ==
LOC: M INFU 13:51
PROVIDERS: ATTEND Physician Assistant
DX: G35 Multiple sclerosis (principal)
CPT/HCPCS: 96365; J2930

== ENCOUNTER 2021-05-10 12:03 | Outpatient (CLI) | payer OTHER ==
[~2021-05-10] VITALS: Ht 152.4 cm; Wt 78.0 kg
[~2021-05-10 12:03] MED LIST changes: +ALBUTEROL SULFATE 2.5 MG/0.5 ML INH NEB SOLN INH PRN; +EPINEPHrine INJ 1 MG/ML 1ML AMP IM PRN; +NATALIZUMAB OVER 1 HOUR IV ONE; +NS 1,000 ML IV SCH; +diphenhydrAMINE 50MG/ML VIAL (J1200) IV PRN; -methylPREDNISolone 1,000 MG, VIAL MATE ADAPTER 1 EACH in NS 250 ML IV ONE; +methylPREDNISolone 125MG 2ML VIAL IV PRN
[2021-05-10 12:05] VITALS: BP 120/69
[2021-05-10 12:29] VITALS: BP 120/69
[2021-05-10 13:50] VITALS: BP 115/76
== END 2021-05-10 13:50 | disposition home or self-care (01) ==
LOC: M INFU 12:03
PROVIDERS: ATTEND Physician Assistant
DX: G35 Multiple sclerosis (principal); Z88.1 Allergy status to other antibiotic agents
CPT/HCPCS: 96365; J2323

== ENCOUNTER 2021-06-07 11:55 | Outpatient (CLI) | payer OTHER ==
[~2021-06-07] VITALS: Ht 152.4 cm; Wt 78.2 kg
[~2021-06-07 11:55] MED LIST changes: -NATALIZUMAB OVER 1 HOUR IV ONE; -NS 1,000 ML IV SCH
[2021-06-07] MEDS ORDERED: NS 1,000 ML IV SCH (12:00)
[2021-06-07] MEDS ORDERED: NATALIZUMAB OVER 1 HOUR IV ONE ×2 (12:00)
[2021-06-07 12:13] VITALS: BP 124/62
[2021-06-07 13:55] VITALS: BP_SYST 66
== END 2021-06-07 13:55 | disposition home or self-care (01) ==
LOC: M INFU 11:55
PROVIDERS: ATTEND Physician Assistant
DX: G35 Multiple sclerosis (principal); Z88.8 Allergy status to other drugs, medicaments and biological substances
CPT/HCPCS: 96365; J2323

== ENCOUNTER 2021-07-05 11:57 | Outpatient (CLI) | payer OTHER ==
[~2021-07-05] VITALS: Ht 152.4 cm; Wt 78.2 kg
[2021-07-05] MEDS ORDERED: NATALIZUMAB OVER 1 HOUR IV ONE ×2 (12:00)
[2021-07-05] MEDS ORDERED: NS 1,000 ML IV SCH (12:00)
[2021-07-05 12:09] VITALS: BP 108/71
[2021-07-05 12:38] LABS: HEMATOCRIT 35.3 % (36.0-47.0); HEMOGLOBIN 12.5 g/dl (12.0-15.5); MEAN CORPUSCULAR HEMOGLOBIN 30.3 pg (27.0-33.0); MEAN CORPUSCULAR HGB CONC 35.4 g/dl (32.0-36.5); MEAN CORPUSCULAR VOLUME 85.5 fl (80.0-96.0); PLATELET COUNT, AUTOMATED 264 10^3/uL (150-450); RED BLOOD COUNT 4.13 10^6/uL (4.00-5.40)
[2021-07-05 13:28] LABS: ATYPICAL LYMPH 10 % (0-5); BASOPHILS 1 % (0-1); EOSINOPHILS 3 % (0-3); LYMPHOCYTES 38 % (16-44); MONOCYTES 6 % (0-5); NEUTROPHILS 42 % (28-66); PLATELET ESTIMATE NORMAL (NORMAL)
[2021-07-05 13:30] LABS: ALBUMIN 3.8 GM/DL (3.2-5.2); ALT/SGPT 17 U/L (12-78); BLOOD UREA NITROGEN 12 MG/DL (7-18); CALCIUM LEVEL 9.3 MG/DL (8.5-10.1); CARBON DIOXIDE LEVEL 24 MEQ/L (21-32); CHLORIDE LEVEL 113 MEQ/L (98-107); GLOMERULAR FILTRATION RATE > 60.0 (>60); GLUCOSE, FASTING 92 MG/DL (70-100); IMMUNOGLOBULIN A 81.3 MG/DL (70-400); IMMUNOGLOBULIN G 701 MG/DL (681-1648); POTASSIUM SERUM 4.1 MEQ/L (3.5-5.1); SODIUM LEVEL 141 MEQ/L (136-145); TOTAL PROTEIN 6.4 GM/DL (6.4-8.2)
[2021-07-05 13:45] VITALS: BP 123/60
== END 2021-07-05 13:45 | disposition home or self-care (01) ==
LOC: M INFU 11:57
PROVIDERS: ATTEND Physician Assistant
DX: G35 Multiple sclerosis (principal); Z88.8 Allergy status to other drugs, medicaments and biological substances
CPT/HCPCS: 36592; 80053; 82306; 82784; 82787; 85025; 86711; 96365; J2323

== ENCOUNTER → 2021-07-09 | Outpatient (CLI) | payer OTHER ==
[~2021-07-09] MED LIST changes: -ALBUTEROL SULFATE 2.5 MG/0.5 ML INH NEB SOLN INH PRN; -EPINEPHrine INJ 1 MG/ML 1ML AMP IM PRN; -diphenhydrAMINE 50MG/ML VIAL (J1200) IV PRN; -methylPREDNISolone 125MG 2ML VIAL IV PRN
[2021-07-09 13:45] LABS: HEMATOCRIT 40.1 % (36.0-47.0); HEMOGLOBIN 13.8 g/dl (12.0-15.5); MEAN CORPUSCULAR HEMOGLOBIN 29.8 pg (27.0-33.0); MEAN CORPUSCULAR HGB CONC 34.4 g/dl (32.0-36.5); MEAN CORPUSCULAR VOLUME 86.6 fl (80.0-96.0); PLATELET COUNT, AUTOMATED 257 10^3/uL (150-450); RED BLOOD COUNT 4.63 10^6/uL (4.00-5.40); WHITE BLOOD COUNT 12.7 10^3/uL (4.0-10.0)
[2021-07-09 14:00] LABS: ALBUMIN 4.1 GM/DL (3.2-5.2); ALT/SGPT 13 U/L (12-78); BILIRUBIN,TOTAL 0.8 MG/DL (0.2-1.0); BLOOD UREA NITROGEN 11 MG/DL (7-18); CALCIUM LEVEL 9.1 MG/DL (8.5-10.1); CARBON DIOXIDE LEVEL 30 MEQ/L (21-32); CHLORIDE LEVEL 107 MEQ/L (98-107); CHOLESTEROL LEVEL 148 MG/DL (<200); CHOLESTEROL RISK RATIO 4.228 (<5); CREATININE FOR GFR 0.74 MG/DL (0.55-1.30); GLOMERULAR FILTRATION RATE > 60.0 (>60); GLUCOSE, FASTING 93 MG/DL (70-100); HDL CHOLESTEROL 35 MG/DL (>40); LDL CHOLESTEROL 79 MG/DL (<100); NON-HDL-C 113 MG/DL; POTASSIUM SERUM 4.1 MEQ/L (3.5-5.1); SODIUM LEVEL 139 MEQ/L (136-145); THYROID STIMULATING HORMONE 0.923 uIU/ML (0.358-3.740); TRIGLYCERIDES LEVEL 169 MG/DL (<150)
[2021-07-09 14:19] LABS: BASOPHILS 1 % (0-1); EOSINOPHILS 1 % (0-3); LYMPHOCYTES 39 % (16-44); MONOCYTES 2 % (0-5); NEUTROPHILS 57 % (28-66); PLATELET ESTIMATE NORMAL (NORMAL)
[2021-07-09 15:38] LABS: HEMOGLOBIN A1c 4.8 %
== END ==
LOC: M PLALAB 11:12
PROVIDERS: ATTEND Physician Assistant Medical
DX: E66.9 Obesity, unspecified (principal)

== ENCOUNTER → 2021-07-21 | Outpatient (CLI) | payer OTHER ==
[~2021-07-21] MED LIST changes: +PROHANCE 279.3MG/ML 15ML VIAL As Ordered ONE
== END ==
LOC: M RAD 14:35
PROVIDERS: ATTEND Physician Assistant
DX: G35 Multiple sclerosis (principal)
CPT/HCPCS: 70553; 72156; A9576

== ENCOUNTER 2021-08-02 11:39 | Outpatient (CLI) | payer OTHER ==
[~2021-08-02] VITALS: Ht 154.9 cm; Wt 78.2 kg
[~2021-08-02 11:39] MED LIST changes: +ALBUTEROL SULFATE 2.5 MG/0.5 ML INH NEB SOLN INH PRN; +EPINEPHrine INJ 1 MG/ML 1ML AMP IM PRN; -PROHANCE 279.3MG/ML 15ML VIAL As Ordered ONE; +diphenhydrAMINE 50MG/ML VIAL (J1200) IV PRN; +methylPREDNISolone 125MG 2ML VIAL IV PRN
[2021-08-02] MEDS ORDERED: NS 1,000 ML IV SCH (12:00)
[2021-08-02] MEDS ORDERED: NATALIZUMAB OVER 1 HOUR IV ONE ×2 (12:00)
[2021-08-02 12:01] VITALS: BP 123/71
[2021-08-02 13:31] VITALS: BP 116/68
== END 2021-08-02 13:33 | disposition home or self-care (01) ==
LOC: M INFU 11:39
PROVIDERS: ATTEND Physician Assistant
DX: G35 Multiple sclerosis (principal); Z88.8 Allergy status to other drugs, medicaments and biological substances
CPT/HCPCS: 96365; J2323

== ENCOUNTER 2021-08-31 11:35 | Outpatient (CLI) | payer OTHER ==
[~2021-08-31] VITALS: Ht 152.4 cm; Wt 70.5 kg
[2021-08-31 11:57] VITALS: BP 113/80
[2021-08-31] MEDS ORDERED: NATALIZUMAB OVER 1 HOUR IV ONE ×2 (12:00)
[2021-08-31] MEDS ORDERED: NS 1,000 ML IV SCH (12:00)
[2021-08-31 13:15] VITALS: BP 111/68
== END 2021-08-31 13:15 ==
LOC: M INFU 11:35
PROVIDERS: ATTEND Physician Assistant
DX: G35 Multiple sclerosis (principal); Z88.1 Allergy status to other antibiotic agents
CPT/HCPCS: 96365; J2323

== ENCOUNTER → 2021-09-02 | Outpatient (REF) | payer OTHER ==
[~2021-09-02] MED LIST changes: -ALBUTEROL SULFATE 2.5 MG/0.5 ML INH NEB SOLN INH PRN; -EPINEPHrine INJ 1 MG/ML 1ML AMP IM PRN; -diphenhydrAMINE 50MG/ML VIAL (J1200) IV PRN; -methylPREDNISolone 125MG 2ML VIAL IV PRN
== END ==
LOC: M LAB REF 12:49
PROVIDERS: ATTEND Specialist
DX: Z20.822 Contact with and (suspected) exposure to COVID-19 (principal)

== ENCOUNTER 2021-09-27 12:00 | Outpatient (CLI) | payer OTHER ==
[~2021-09-27] VITALS: Ht 152.4 cm; Wt 66.8 kg
[2021-09-27 11:50] VITALS: BP 108/60
[~2021-09-27 12:00] MED LIST changes: +ALBUTEROL SULFATE 2.5 MG/0.5 ML INH NEB SOLN INH PRN; +EPINEPHrine INJ 1 MG/ML 1ML AMP IM PRN; +NATALIZUMAB OVER 1 HOUR IV ONE; +NS 1,000 ML IV SCH; +RITA5TAB PO; +diphenhydrAMINE 50MG/ML VIAL (J1200) IV PRN; +methylPREDNISolone 125MG 2ML VIAL IV PRN
[2021-09-27 13:00] VITALS: BP 107/59
[2021-09-27 13:24] VITALS: BP 107/59
== END 2021-09-27 13:25 | disposition home or self-care (01) ==
LOC: M INFU 12:00
PROVIDERS: ATTEND Physician Assistant
DX: G35 Multiple sclerosis (principal); Z88.1 Allergy status to other antibiotic agents; Z88.8 Allergy status to other drugs, medicaments and biological substances
CPT/HCPCS: 96365; J2323

== ENCOUNTER 2021-10-25 11:50 | Outpatient (CLI) | payer OTHER ==
[~2021-10-25] VITALS: Ht 152.4 cm; Wt 66.7 kg
[2021-10-25 11:50] VITALS: BP 115/70
[~2021-10-25 11:50] MED LIST changes: -NATALIZUMAB OVER 1 HOUR IV ONE; -NS 1,000 ML IV SCH
[2021-10-25 11:55] VITALS: BP 115/70
[2021-10-25] MEDS ORDERED: NATALIZUMAB OVER 1 HOUR IV ONE ×2 (12:00)
[2021-10-25] MEDS ORDERED: NS 1,000 ML IV SCH (12:00)
[2021-10-25 13:25] VITALS: BP 109/50
== END 2021-10-25 13:30 | disposition home or self-care (01) ==
LOC: M INFU 11:50
PROVIDERS: ATTEND Physician Assistant
DX: G35 Multiple sclerosis (principal); Z88.1 Allergy status to other antibiotic agents; Z88.8 Allergy status to other drugs, medicaments and biological substances
CPT/HCPCS: 96365; J2323

== ENCOUNTER 2021-12-20 11:55 | Outpatient (CLI) | payer OTHER ==
[~2021-12-20] VITALS: Ht 152.4 cm; Wt 66.7 kg
[~2021-12-20 11:55] MED LIST changes: +ALBU6.7H6 INH; -PROV108A INH
[2021-12-20 11:56] VITALS: BP 119/63
[2021-12-20] MEDS ORDERED: NATALIZUMAB OVER 1 HOUR IV ONE ×2 (12:00)
[2021-12-20] MEDS ORDERED: NS 1,000 ML IV SCH (12:00)
[2021-12-20 14:00] VITALS: BP 125/76
== END 2021-12-20 14:00 | disposition home or self-care (01) ==
LOC: M INFU 11:55
PROVIDERS: ATTEND Physician Assistant
DX: G35 Multiple sclerosis (principal); Z88.1 Allergy status to other antibiotic agents; Z88.8 Allergy status to other drugs, medicaments and biological substances
CPT/HCPCS: 96365; J2323

== ENCOUNTER 2022-01-17 11:55 | Outpatient (CLI) | payer OTHER ==
[~2022-01-17] VITALS: Ht 152.4 cm; Wt 66.7 kg
[2022-01-17 11:55] VITALS: BP 120/70
[~2022-01-17 11:55] MED LIST changes: +NS 1,000 ML IV SCH; -diphenhydrAMINE 50MG/ML VIAL (J1200) IV PRN; +diphenhydrAMINE 50MG/ML VIAL IV PRN
[2022-01-17] MEDS ORDERED: NATALIZUMAB OVER 1 HOUR IV ONE ×2 (12:00)
[2022-01-17 13:43] VITALS: BP 113/65
== END 2022-01-17 13:45 | disposition home or self-care (01) ==
LOC: M INFU 11:55
PROVIDERS: ATTEND Physician Assistant
DX: G35 Multiple sclerosis (principal); Z88.1 Allergy status to other antibiotic agents; Z88.8 Allergy status to other drugs, medicaments and biological substances
CPT/HCPCS: 96365; J2323

== ENCOUNTER 2022-03-21 12:00 | Outpatient (CLI) | payer OTHER ==
[~2022-03-21] VITALS: Ht 152.4 cm; Wt 66.8 kg
[~2022-03-21 12:00] MED LIST changes: -ALBUTEROL SULFATE 2.5 MG/0.5 ML INH NEB SOLN INH PRN; +ALBUTEROL SULFATE 2.5MG/0.5ML INH NEB SOLN INH PRN; +NATALIZUMAB OVER 1 HOUR IV ONE; +NYST-38 PO; -NYST50SS PO
[2022-03-21 12:18] VITALS: BP 119/73
[2022-03-21 13:44] VITALS: BP 106/61
[2022-03-21 13:45] VITALS: BP 106/61
== END 2022-03-21 13:45 | disposition home or self-care (01) ==
LOC: M INFU 12:00
PROVIDERS: ATTEND Physician Assistant
DX: G35 Multiple sclerosis (principal); Z88.1 Allergy status to other antibiotic agents; Z88.8 Allergy status to other drugs, medicaments and biological substances
CPT/HCPCS: 96365; J2323

== ENCOUNTER 2022-04-18 12:25 | Outpatient (CLI) | payer OTHER ==
[~2022-04-18] VITALS: Ht 152.4 cm; Wt 66.8 kg
[2022-04-18 12:25] VITALS: BP 117/59
[~2022-04-18 12:25] MED LIST changes: -NATALIZUMAB OVER 1 HOUR IV ONE; -NS 1,000 ML IV SCH
[2022-04-18] MEDS ORDERED: NS 1,000 ML IV SCH (12:30)
[2022-04-18] MEDS ORDERED: NATALIZUMAB OVER 1 HOUR IV ONE ×2 (12:30)
[2022-04-18 14:00] VITALS: BP 114/59
== END 2022-04-18 14:00 | disposition home or self-care (01) ==
LOC: M INFU 12:25
PROVIDERS: ATTEND Physician Assistant
DX: G35 Multiple sclerosis (principal); Z88.8 Allergy status to other drugs, medicaments and biological substances
CPT/HCPCS: 96365; J2323

== ENCOUNTER 2022-05-16 12:10 | Outpatient (CLI) | payer OTHER ==
[~2022-05-16] VITALS: Ht 152.4 cm; Wt 66.8 kg
[2022-05-16 12:10] VITALS: BP 107/60
[~2022-05-16 12:10] MED LIST changes: +NATALIZUMAB OVER 1 HOUR IV ONE; +NS 1,000 ML IV SCH
[2022-05-16 13:55] VITALS: BP 105/60
== END 2022-05-16 14:00 | disposition home or self-care (01) ==
LOC: M INFU 12:10
PROVIDERS: ATTEND Physician Assistant
DX: G35 Multiple sclerosis (principal); Z88.8 Allergy status to other drugs, medicaments and biological substances; Z88.1 Allergy status to other antibiotic agents
CPT/HCPCS: 96365; J2323

== ENCOUNTER → 2022-06-08 | Outpatient (REF) | payer OTHER ==
[~2022-06-08] MED LIST changes: -ALBUTEROL SULFATE 2.5MG/0.5ML INH NEB SOLN INH PRN; -EPINEPHrine INJ 1 MG/ML 1ML AMP IM PRN; -NATALIZUMAB OVER 1 HOUR IV ONE; -NS 1,000 ML IV SCH; -diphenhydrAMINE 50MG/ML VIAL IV PRN; -methylPREDNISolone 125MG 2ML VIAL IV PRN
== END ==
LOC: M LAB REF 15:03
PROVIDERS: ATTEND Pediatrics
DX: J06.9 Acute upper respiratory infection, unspecified (principal)

== ENCOUNTER → 2022-06-16 | Outpatient (REF) | payer OTHER | LOC: M LAB REF 18:05 | PROVIDERS: ATTEND Pediatrics | DX: L02.31 Cutaneous abscess of buttock (principal) ==

== ENCOUNTER → 2022-06-27 | Outpatient (CLI) | payer OTHER ==
[~2022-06-27] VITALS: Ht 152.4 cm; Wt 66.7 kg
[~2022-06-27] MED LIST changes: +ALBUTEROL SULFATE 2.5MG/0.5ML INH NEB SOLN INH PRN; +EPINEPHrine INJ 1 MG/ML 1ML AMP IM PRN; +NATALIZUMAB OVER 1 HOUR IV ONE; +NS 1,000 ML IV SCH; +diphenhydrAMINE 50MG/ML VIAL IV PRN; +methylPREDNISolone 125MG 2ML VIAL IV PRN
[2022-06-27 07:48] VITALS: BP 107/73
[2022-06-27 09:05] VITALS: BP 110/69
== END ==
LOC: M INFU 07:35
PROVIDERS: ATTEND Physician Assistant
DX: G35 Multiple sclerosis (principal); Z88.8 Allergy status to other drugs, medicaments and biological substances; Z88.1 Allergy status to other antibiotic agents
CPT/HCPCS: 96365; J2323

== ENCOUNTER 2022-08-22 11:53 | Outpatient (CLI) | payer OTHER ==
[~2022-08-22] VITALS: Ht 152.4 cm; Wt 66.7 kg
[2022-08-22 12:00] VITALS: BP 121/60; O2SAT 99
[2022-08-22 13:30] VITALS: BP 114/68; O2SAT 100
[2022-08-22] MEDS ORDERED: NATALIZUMAB OVER 1 HOUR IV ONE ×2 (16:00)
[2022-08-22] MEDS ORDERED: NS 1,000 ML IV SCH (16:00)
== END 2022-08-22 13:45 ==
LOC: M INFU 11:53
PROVIDERS: ATTEND Physician Assistant
DX: G35 Multiple sclerosis (principal); Z88.1 Allergy status to other antibiotic agents; Z88.8 Allergy status to other drugs, medicaments and biological substances
CPT/HCPCS: 96365; J2323

== ENCOUNTER 2022-09-26 13:15 | Outpatient (CLI) | payer OTHER ==
[~2022-09-26] VITALS: Ht 152.4 cm; Wt 64.9 kg
[2022-09-26 13:15] VITALS: BP 117/69; O2SAT 100
[~2022-09-26 13:15] MED LIST changes: -NATALIZUMAB OVER 1 HOUR IV ONE; -NS 1,000 ML IV SCH
[2022-09-26] MEDS ORDERED: NATALIZUMAB OVER 1 HOUR IV ONE ×2 (14:00)
[2022-09-26] MEDS ORDERED: NS 1,000 ML IV SCH (14:00)
[2022-09-26 15:00] VITALS: BP 105/60; O2SAT 99
== END 2022-09-26 15:00 | disposition home or self-care (01) ==
LOC: M INFU 13:15
PROVIDERS: ATTEND Physician Assistant
DX: G35 Multiple sclerosis (principal); Z88.1 Allergy status to other antibiotic agents; Z88.8 Allergy status to other drugs, medicaments and biological substances
CPT/HCPCS: 96365; J2323

== ENCOUNTER 2022-10-24 13:10 | Outpatient (CLI) | payer OTHER ==
[~2022-10-24] VITALS: Ht 152.4 cm; Wt 64.3 kg
[~2022-10-24 13:10] MED LIST changes: +METH80VI IV; -[UNRECOGNIZED DRUG - CODE] IV
[2022-10-24] MEDS ORDERED: NATALIZUMAB OVER 1 HOUR IV ONE ×2 (13:30)
[2022-10-24] MEDS ORDERED: NS 1,000 ML IV SCH (13:30)
[2022-10-24 13:50] VITALS: BP 119/75; TEMP 98.5; O2SAT 97
[2022-10-24 15:03] VITALS: BP 118/73; O2SAT 100
== END 2022-10-24 15:00 | disposition home or self-care (01) ==
LOC: M INFU 13:10
PROVIDERS: ATTEND Physician Assistant
DX: G35 Multiple sclerosis (principal)
CPT/HCPCS: 96365; J2323

== ENCOUNTER → 2022-11-07 | Outpatient (REF) | payer OTHER ==
[~2022-11-07] MED LIST changes: -ALBUTEROL SULFATE 2.5MG/0.5ML INH NEB SOLN INH PRN; -EPINEPHrine INJ 1 MG/ML 1ML AMP IM PRN; -diphenhydrAMINE 50MG/ML VIAL IV PRN; -methylPREDNISolone 125MG 2ML VIAL IV PRN
[2022-11-07 19:43] LABS: APPEARANCE, URINE CLOUDY (CLEAR); BACTERIA, URINE AUTO 1+ (NEGATIVE); BILIRUBIN, URINE AUTO NEGATIVE (NEGATIVE); BLOOD, URINE BLOOD 2+ (NEGATIVE); COLOR, URINE AMBER (YELLOW); GLUCOSE, URINE (UA) AUTO NEGATIVE (NEGATIVE); KETONE, URINE AUTO NEGATIVE (NEGATIVE); LEUKOCYTE ESTERASE, URINE AUTO 2+ (NEGATIVE); MUCUS, URINE SMALL (NEGATIVE); NITRITE, URINE AUTO POSITIVE (NEGATIVE); PROTEIN, URINE AUTO 2+ mg/dL (NEGATIVE); RBC, URINE AUTO 11 /HPF (0-3); SPECIFIC GRAVITY URINE AUTO 1.016 (1.002-1.035); SQUAMOUS EPITHELIAL CELL UR AU 40 /HPF (0-6); WBC, URINE AUTO 128 /HPF (0-3)
[2022-11-07 20:01] LABS: URINE PREG TEST NEGATIVE (NEGATIVE)
[2022-11-07 21:26] LABS: GC DNA AMPLIFICATION NEGATIVE (NEGATIVE)
== END ==
LOC: M LAB REF 17:36
PROVIDERS: ATTEND Physician Assistant Medical
DX: N39.0 Urinary tract infection, site not specified (principal)

== ENCOUNTER 2023-03-06 08:28 | Outpatient (CLI) | payer OTHER ==
[~2023-03-06] VITALS: Ht 154.9 cm; Wt 67.9 kg
[~2023-03-06 08:28] MED LIST changes: +ALBUTEROL SULFATE 2.5MG/0.5ML INH NEB SOLN INH PRN; +EPINEPHrine INJ 1 MG/ML 1ML AMP IM PRN; +diphenhydrAMINE 50MG/ML VIAL IV PRN; +methylPREDNISolone 125MG 2ML VIAL IV PRN
[2023-03-06] MEDS ORDERED: NATALIZUMAB OVER 1 HOUR IV ONE ×2 (08:30)
[2023-03-06] MEDS ORDERED: NS 1,000 ML IV SCH (08:30)
[2023-03-06 08:35] VITALS: BP 116/60; O2SAT 100
[2023-03-06 10:00] VITALS: BP 104/69; O2SAT 100
== END 2023-03-06 10:05 ==
LOC: M INFU 08:28
PROVIDERS: ATTEND Physician Assistant
DX: G35 Multiple sclerosis (principal); Z88.1 Allergy status to other antibiotic agents; Z88.8 Allergy status to other drugs, medicaments and biological substances
CPT/HCPCS: 96365; J2323

== ENCOUNTER 2023-04-03 15:30 | Outpatient (CLI) | payer OTHER ==
[~2023-04-03] VITALS: Ht 154.9 cm; Wt 68.0 kg
[~2023-04-03 15:30] MED LIST changes: +NS 1,000 ML IV SCH
[2023-04-03 15:34] VITALS: BP 125/72; O2SAT 100
[2023-04-03] MEDS ORDERED: NATALIZUMAB OVER 1 HOUR IV ONE ×2 (16:00)
[2023-04-03 17:19] VITALS: BP 104/59; O2SAT 100
== END 2023-04-03 17:20 ==
LOC: M INFU 15:30
PROVIDERS: ATTEND Physician Assistant
DX: G35 Multiple sclerosis (principal); Z88.1 Allergy status to other antibiotic agents; Z88.8 Allergy status to other drugs, medicaments and biological substances
CPT/HCPCS: 96365; J2323

== ENCOUNTER 2023-05-01 15:30 | Outpatient (CLI) | payer OTHER ==
[2023-05-01 15:30] VITALS: BP 130/66; O2SAT 100
[2023-05-01] MEDS: NATALIZUMAB OVER 1 HOUR IV ONE (16:05)
[2023-05-01 17:11] VITALS: BP 113/56; O2SAT 100
== END 2023-05-01 17:13 | disposition home or self-care (01) ==
LOC: M INFU 15:30
PROVIDERS: ATTEND Physician Assistant
DX: G35 Multiple sclerosis (principal); Z88.8 Allergy status to other drugs, medicaments and biological substances; Z88.1 Allergy status to other antibiotic agents
CPT/HCPCS: 96365; J2323

== ENCOUNTER 2023-05-29 15:32 | Outpatient (CLI) | payer OTHER ==
[~2023-05-29] VITALS: Ht 152.4 cm; Wt 68.5 kg
[2023-05-29 15:40] VITALS: BP 111/72; O2SAT 98
[2023-05-29] MEDS: NATALIZUMAB OVER 1 HOUR IV ONE (15:57)
[2023-05-29 17:05] VITALS: BP 102/64; O2SAT 98
== END 2023-05-29 17:05 | disposition home or self-care (01) ==
LOC: M INFU 15:32
PROVIDERS: ATTEND Physician Assistant
DX: G35 Multiple sclerosis (principal); Z88.1 Allergy status to other antibiotic agents; Z88.8 Allergy status to other drugs, medicaments and biological substances
CPT/HCPCS: 96365; J2323

== ENCOUNTER 2023-06-26 15:24 | Outpatient (CLI) | payer OTHER ==
[~2023-06-26] VITALS: Ht 152.4 cm; Wt 63.6 kg
[2023-06-26 15:30] VITALS: BP 114/55; O2SAT 99
[2023-06-26] MEDS: NATALIZUMAB OVER 1 HOUR IV ONE (16:08)
[2023-06-26 17:20] VITALS: BP 106/62; O2SAT 98
== END 2023-06-26 17:20 ==
LOC: M INFU 15:24
PROVIDERS: ATTEND Physician Assistant
DX: G35 Multiple sclerosis (principal); Z88.1 Allergy status to other antibiotic agents; Z88.8 Allergy status to other drugs, medicaments and biological substances
CPT/HCPCS: 96365; J2323

== ENCOUNTER → 2023-07-28 | Outpatient (REF) | payer OTHER ==
[~2023-07-28] MED LIST changes: -ALBUTEROL SULFATE 2.5MG/0.5ML INH NEB SOLN INH PRN; -EPINEPHrine INJ 1 MG/ML 1ML AMP IM PRN; -NS 1,000 ML IV SCH; -diphenhydrAMINE 50MG/ML VIAL IV PRN; -methylPREDNISolone 125MG 2ML VIAL IV PRN
== END ==
LOC: M LAB REF 12:42
PROVIDERS: ATTEND Physician Assistant Medical
DX: L98.8 Other specified disorders of the skin and subcutaneous tissue (principal)

== ENCOUNTER 2023-09-15 14:36 | Outpatient (CLI) | payer OTHER ==
[~2023-09-15 14:36] MED LIST changes: +ALBUTEROL SULFATE 2.5MG/0.5ML INH NEB SOLN INH PRN; +EPINEPHrine INJ 1 MG/ML 1ML AMP IM PRN; +FLUO-365 PO; -FLUO20CA22 PO; +diphenhydrAMINE 50MG/ML VIAL IV PRN; +methylPREDNISolone 125MG 2ML VIAL IV PRN
[2023-09-15] MEDS ORDERED: NS 1,000 ML IV SCH (15:30)
[2023-09-15] MEDS: NATALIZUMAB OVER 1 HOUR IV ONE (15:42)
[2023-09-15 16:55] VITALS: BP 112/73; O2SAT 97
== END 2023-09-15 17:00 ==
LOC: M INFU 14:36
PROVIDERS: ATTEND Physician Assistant
DX: G35 Multiple sclerosis (principal); Z88.1 Allergy status to other antibiotic agents; Z88.8 Allergy status to other drugs, medicaments and biological substances
CPT/HCPCS: 96365; J2323

== ENCOUNTER → 2023-10-20 | Outpatient (REF) | payer OTHER ==
[~2023-10-20] MED LIST changes: -ALBUTEROL SULFATE 2.5MG/0.5ML INH NEB SOLN INH PRN; -EPINEPHrine INJ 1 MG/ML 1ML AMP IM PRN; -diphenhydrAMINE 50MG/ML VIAL IV PRN; -methylPREDNISolone 125MG 2ML VIAL IV PRN
== END ==
LOC: M LAB REF 12:08
PROVIDERS: ATTEND Physician Assistant
DX: Z34.00 Encounter for supervision of normal first pregnancy, unspecified trimester (principal)

== ENCOUNTER → 2023-10-23 | Outpatient (CLI) | payer OTHER | LOC: M LAB 09:59 | PROVIDERS: ATTEND Physician Assistant | DX: G35 Multiple sclerosis (principal) ==

== ENCOUNTER → 2023-12-08 | Outpatient (CLI) | payer OTHER ==
[2023-12-08 14:55] LABS: HEMATOCRIT 32.5 % (36.0-47.0); HEMOGLOBIN 11.4 g/dl (12.0-15.5); MEAN CORPUSCULAR HEMOGLOBIN 28.4 pg (27.0-33.0); MEAN CORPUSCULAR HGB CONC 35.1 g/dl (32.0-36.5); PLATELET COUNT, AUTOMATED 203 10^3/uL (150-450); RED BLOOD COUNT 4.01 10^6/uL (4.00-5.40); WHITE BLOOD COUNT 10.1 10^3/uL (4.0-10.0)
[2023-12-08 15:26] LABS: HIV 1&2 SCREEN NEGATIVE (NEGATIVE)
[2023-12-08 15:35] LABS: HEPATITIS C VIRUS ABY INDEX < 0.02 INDEX (<0.8)
[2023-12-11 13:36] LABS: GC DNA AMPLIFICATION NEGATIVE (NEGATIVE)
== END ==
LOC: M PLALAB 12:21
PROVIDERS: ATTEND Advanced Practice Midwife
DX: Z34.81 Encounter for supervision of other normal pregnancy, first trimester (principal)

== ENCOUNTER → 2024-02-07 | Outpatient (CLI) | payer OTHER ==
[2024-02-07 10:43] LABS: HEMATOCRIT 30.8 % (36.0-47.0); HEMOGLOBIN 10.8 g/dl (12.0-15.5); MEAN CORPUSCULAR HEMOGLOBIN 29.4 pg (27.0-33.0); MEAN CORPUSCULAR HGB CONC 35.1 g/dl (32.0-36.5); MEAN CORPUSCULAR VOLUME 83.9 fl (80.0-96.0); PLATELET COUNT, AUTOMATED 163 10^3/uL (150-450); RED BLOOD COUNT 3.67 10^6/uL (4.00-5.40); WHITE BLOOD COUNT 8.3 10^3/uL (4.0-10.0)
== END ==
LOC: M PLALAB 07:54
PROVIDERS: ATTEND Nurse Practitioner Family
DX: Z34.82 Encounter for supervision of other normal pregnancy, second trimester (principal)

== ENCOUNTER → 2024-02-23 | Outpatient (CLI) | payer OTHER | LOC: M RAD 11:21 | PROVIDERS: ATTEND Obstetrics & Gynecology | DX: Z34.92 Encounter for supervision of normal pregnancy, unspecified, second trimester (principal) ==

== ENCOUNTER → 2024-03-27 | Outpatient (CLI) | payer OTHER ==
[~2024-03-27] MED LIST changes: +FAMO10TA50 PO
[2024-03-27 15:26] LABS: HEMATOCRIT 28.8 % (36.0-47.0); HEMOGLOBIN 9.9 g/dl (12.0-15.5); MEAN CORPUSCULAR HEMOGLOBIN 30.1 pg (27.0-33.0); MEAN CORPUSCULAR HGB CONC 34.4 g/dl (32.0-36.5); MEAN CORPUSCULAR VOLUME 87.5 fl (80.0-96.0); PLATELET COUNT, AUTOMATED 179 10^3/uL (150-450); RED BLOOD COUNT 3.29 10^6/uL (4.00-5.40); WHITE BLOOD COUNT 9.7 10^3/uL (4.0-10.0)
[2024-03-27 15:31] LABS: GLUCOSE CHALLENGE TEST 1 HOUR 110 MG/DL (LESS THAN 140)
[2024-03-27 16:19] LABS: HIV 1&2 SCREEN NEGATIVE (NEGATIVE)
[2024-03-27 16:26] LABS: HEPATITIS C VIRUS ABY INDEX < 0.02 INDEX (<0.8)
[2024-03-27 16:51] LABS: GC DNA AMPLIFICATION NEGATIVE (NEGATIVE)
== END ==
LOC: M PLALAB 11:03
PROVIDERS: ATTEND Specialist
DX: Z34.82 Encounter for supervision of other normal pregnancy, second trimester (principal)

== ENCOUNTER 2024-03-28 10:01 | Outpatient (CLI) | payer OTHER ==
[~2024-03-28] VITALS: Ht 152.4 cm; Wt 74.1 kg
[~2024-03-28 10:01] MED LIST changes: -FAMO10TA50 PO
[2024-03-28 10:16] VITALS: BP 104/62
[2024-03-28] MEDS ORDERED: FAMO10TA50 PO (10:21)
[2024-03-28] MEDS ORDERED: HOME MED LIST COMPLETE! XX SCH (10:25)
[2024-03-28 11:23] LABS: KETONE, URINE MANUAL REFLEX NEGATIVE (NEGATIVE); NITRITE, URINE MANUAL RFX NEGATIVE (NEGATIVE); PROTEIN, URINE MANUAL REFLEX NEGATIVE (NEGATIVE); SP GRAVITY,URINE MANUAL REFLEX 1.025 (1.002-1.035); UROBILINOGEN, UA MANUAL REFLEX 1 MG mg/dl (NORMAL)
[2024-03-28 12:05] LABS: HYALINE CAST, URINE RFX NONE SEEN /lpf (0-1); MICROSCOPIC EXAM RFX PERFORMED; RBC, URINE MAN REFLEX 0-1 /hpf (0-3); SQUAMOUS EPITHELIAL URINE RFX LARGE AMOUNT /hpf (SMALL AMT)
[2024-03-28 12:33] VITALS: BP 95/56
[2024-03-29 12:57] LABS: CANDIDA ALBICANS NAA DETECTED (NOT DETECTED); CANDIDA GLABRATA NAA NOT DETECTED (NOT DETECTED); TRICH VAG BY NAA NOT DETECTED (NOT DETECTED)
[2024-03-29 15:12] LABS: CHLAMYDIA TRACHOMATIS NAA NOT DETECTED (NOT DETECTED); Neisseria gonorrhoeae NAA NOT DETECTED (NOT DETECTED)
[2024-03-29 19:52] LABS: BVAB 2 NEGATIVE (NEGATIVE)
== END 2024-03-28 13:30 | disposition home or self-care (01) ==
LOC: M LDO 10:01
PROVIDERS: ATTEND Obstetrics & Gynecology
DX: O36.8120 Decreased fetal movements, second trimester, not applicable or unspecified (principal); O99.342 Other mental disorders complicating pregnancy, second trimester; O99.332 Smoking (tobacco) complicating pregnancy, second trimester; O99.352 Diseases of the nervous system complicating pregnancy, second trimester; F31.81 Bipolar II disorder; G35 Multiple sclerosis; F17.290 Nicotine dependence, other tobacco product, uncomplicated; Z3A.26 26 weeks gestation of pregnancy
CPT/HCPCS: 59025; 81000; 81015; 81513; 87086; 87481; 87491; 87591; 87661; G0463

== ENCOUNTER → 2024-05-03 | Outpatient (REF) | payer OTHER ==
[~2024-05-03] MED LIST changes: +FAMO10TA50 PO
[2024-05-03 20:44] LABS: APPEARANCE, URINE HAZY (CLEAR); BACTERIA, URINE AUTO NEGATIVE (NEGATIVE); BILIRUBIN, URINE AUTO NEGATIVE (NEGATIVE); BLOOD, URINE BLOOD NEGATIVE (NEGATIVE); COLOR, URINE AMBER (YELLOW); GLUCOSE, URINE (UA) AUTO 1+ mg/dL (NEGATIVE); KETONE, URINE AUTO 1+ mg/dL (NEGATIVE); LEUKOCYTE ESTERASE, URINE AUTO 2+ (NEGATIVE); MUCUS, URINE SMALL (NEGATIVE); NITRITE, URINE AUTO NEGATIVE (NEGATIVE); PROTEIN, URINE AUTO NEGATIVE (NEGATIVE); RBC, URINE AUTO 3 /HPF (0-3); SPECIFIC GRAVITY URINE AUTO 1.019 (1.002-1.035); SQUAMOUS EPITHELIAL CELL UR AU 7 /HPF (0-6); WBC, URINE AUTO 13 /HPF (0-3); YEAST LIKE CELL URINE AUTO SMALL
== END ==
LOC: M SMT 17:06
PROVIDERS: ATTEND Obstetrics & Gynecology
DX: R30.0 Dysuria (principal)

== ENCOUNTER 2024-05-09 15:41 | Outpatient (CLI) | payer OTHER ==
[~2024-05-09] VITALS: Ht 152.4 cm; Wt 72.7 kg
[~2024-05-09 15:41] MED LIST changes: +ALBUTEROL SULFATE 2.5MG/0.5ML INH NEB SOLN INH PRN; +EPINEPHrine INJ 1 MG/ML 1ML AMP IM PRN; +diphenhydrAMINE 50MG/ML VIAL IV PRN; +methylPREDNISolone 125MG 2ML VIAL IV PRN
[2024-05-09 15:50] VITALS: BP 132/70; O2SAT 98
[2024-05-09] MEDS: IRON SUCROSE 300 MG in NS 250 ML IV ONE (15:56)
[2024-05-09 17:33] VITALS: BP 107/58; O2SAT 96
== END 2024-05-09 17:35 ==
LOC: M INFU 15:41
PROVIDERS: ATTEND Obstetrics & Gynecology
DX: O99.019 Anemia complicating pregnancy, unspecified trimester (principal); Z3A.00 Weeks of gestation of pregnancy not specified
CPT/HCPCS: 96365; 96366; J1756

== ENCOUNTER 2024-05-23 10:37 | Outpatient (CLI) | payer OTHER ==
[~2024-05-23] VITALS: Ht 152.4 cm; Wt 76.6 kg
[~2024-05-23 10:37] MED LIST changes: -ALBUTEROL SULFATE 2.5MG/0.5ML INH NEB SOLN INH PRN; -EPINEPHrine INJ 1 MG/ML 1ML AMP IM PRN; -diphenhydrAMINE 50MG/ML VIAL IV PRN; -methylPREDNISolone 125MG 2ML VIAL IV PRN
[2024-05-23 10:53] VITALS: BP 91/58
[2024-05-23] MEDS ORDERED: AMOX875T PO (11:10)
[2024-05-23] MEDS ORDERED: HOME MED LIST COMPLETE! XX SCH (11:10)
[2024-05-23 11:36] VITALS: BP 80/47
[2024-05-23 11:51] VITALS: BP 81/49
[2024-05-23 13:14] LABS: HEMATOCRIT 24.6 % (36.0-47.0); HEMOGLOBIN 8.1 g/dl (12.0-15.5); MEAN CORPUSCULAR HEMOGLOBIN 28.2 pg (27.0-33.0); MEAN CORPUSCULAR HGB CONC 32.9 g/dl (32.0-36.5); MEAN CORPUSCULAR VOLUME 85.7 fl (80.0-96.0); PLATELET COUNT, AUTOMATED 168 10^3/uL (150-450); RED BLOOD COUNT 2.87 10^6/uL (4.00-5.40); WHITE BLOOD COUNT 11.7 10^3/uL (4.0-10.0)
[2024-05-23] MEDS: LACTATED RINGER'S 1000 ML IV STA (13:24)
[2024-05-23] MEDS: MORPHINE 10 MG/ML 1ML VIAL IV ONE (13:24)
[2024-05-23] MEDS: LR 1,000 ML IV SCH (13:24)
[2024-05-23 14:18] VITALS: BP 90/55
[2024-05-23] MEDS: MORPHINE 10 MG/ML 1ML VIAL IV PRN (14:33)
[2024-05-23] MEDS: ONDANSETRON 4MG 2ML VIAL IV PRN (14:33)
[2024-05-23 15:03] VITALS: BP 80/47; TEMP 98.6
[2024-05-23] MEDS ORDERED: ONDA-282 PO (18:08)
[2024-05-23] MEDS ORDERED: METR-265 PO (18:09)
[2024-05-23] MEDS ORDERED: PERCOCET PO (18:10)
== END 2024-05-23 18:20 | disposition home or self-care (01) ==
LOC: M LDO 10:37
PROVIDERS: ATTEND Obstetrics & Gynecology
DX: O99.283 Endocrine, nutritional and metabolic diseases complicating pregnancy, third trimester (principal); O99.73 Diseases of the skin and subcutaneous tissue complicating the puerperium; O99.013 Anemia complicating pregnancy, third trimester; O99.333 Smoking (tobacco) complicating pregnancy, third trimester; O99.353 Diseases of the nervous system complicating pregnancy, third trimester; O99.343 Other mental disorders complicating pregnancy, third trimester; L05.01 Pilonidal cyst with abscess; D50.9 Iron deficiency anemia, unspecified; F17.290 Nicotine dependence, other tobacco product, uncomplicated; E28.2 Polycystic ovarian syndrome; G35 Multiple sclerosis; F31.81 Bipolar II disorder; Z3A.34 34 weeks gestation of pregnancy
CPT/HCPCS: 36415; 59025; 85027; 87070; 87076; 96360; 96361; 96374; 96375; 96376; G0463; J2405

== ENCOUNTER 2024-05-30 11:30 | Outpatient (CLI) | payer OTHER ==
[~2024-05-30] VITALS: Ht 152.4 cm; Wt 75.0 kg
[2024-05-30 11:25] VITALS: BP 119/73; O2SAT 97
[~2024-05-30 11:30] MED LIST changes: +ALBUTEROL SULFATE 2.5MG/0.5ML INH CONCENTRATE NEB SOLN INH PRN; +AMOX875T PO; +EPINEPHrine INJ 1 MG/ML 1ML AMP IM PRN; +METR-265 PO; +ONDA-282 PO; +PERCOCET PO; +diphenhydrAMINE 50MG/ML VIAL IV PRN; +methylPREDNISolone 125MG 2ML VIAL IV PRN
[2024-05-30] MEDS: IRON SUCROSE 500 MG in NS 250 ML OVER 4 HRS IV ONE (12:30)
[2024-05-30 13:30] VITALS: BP 110/55; O2SAT 97
[2024-05-30 14:30] VITALS: BP 113/63; O2SAT 96
[2024-05-30 16:40] VITALS: BP 117/67; O2SAT 98
== END 2024-05-30 16:40 ==
LOC: M INFU 11:30
PROVIDERS: ATTEND Specialist
DX: D64.9 Anemia, unspecified (principal); Z88.1 Allergy status to other antibiotic agents
CPT/HCPCS: 96365; 96366; J1756

== ENCOUNTER → 2024-06-03 | Outpatient (REF) | payer OTHER ==
[~2024-06-03] MED LIST changes: -ALBUTEROL SULFATE 2.5MG/0.5ML INH CONCENTRATE NEB SOLN INH PRN; -EPINEPHrine INJ 1 MG/ML 1ML AMP IM PRN; -diphenhydrAMINE 50MG/ML VIAL IV PRN; -methylPREDNISolone 125MG 2ML VIAL IV PRN
== END ==
LOC: M PLALAB 08:11
PROVIDERS: ATTEND Obstetrics & Gynecology
DX: Z34.83 Encounter for supervision of other normal pregnancy, third trimester (principal)

== ENCOUNTER → 2024-06-10 | Outpatient (CLI) | payer OTHER ==
[2024-06-10 13:14] LABS: HEMATOCRIT 30.1 % (36.0-47.0); MEAN CORPUSCULAR HEMOGLOBIN 28.6 pg (27.0-33.0); MEAN CORPUSCULAR HGB CONC 33.2 g/dl (32.0-36.5); PLATELET COUNT, AUTOMATED 186 10^3/uL (150-450); WHITE BLOOD COUNT 12.1 10^3/uL (4.0-10.0)
== END ==
LOC: M PLALAB 09:57
PROVIDERS: ATTEND Advanced Practice Midwife
DX: O99.019 Anemia complicating pregnancy, unspecified trimester (principal)

== ENCOUNTER → 2024-06-17 | Outpatient (CLI) | payer OTHER | LOC: M WHC 11:33 | PROVIDERS: ATTEND Advanced Practice Midwife | DX: Z34.93 Encounter for supervision of normal pregnancy, unspecified, third trimester (principal); O99.019 Anemia complicating pregnancy, unspecified trimester; G35 Multiple sclerosis ==

== ENCOUNTER 2024-06-21 20:50 | Outpatient (CLI) | payer OTHER ==
[~2024-06-21] VITALS: Ht 152.4 cm; Wt 77.8 kg
[2024-06-21 21:09] VITALS: BP 106/58
[2024-06-21] MEDS ORDERED: ACET-897 PO (21:14)
[2024-06-21 23:49] VITALS: BP 110/62
[2024-06-22 03:11] VITALS: BP 96/57
== END 2024-06-22 04:22 | disposition home or self-care (01) ==
LOC: M LDO 20:50
PROVIDERS: ATTEND Advanced Practice Midwife
DX: O47.1 False labor at or after 37 completed weeks of gestation (principal); O99.353 Diseases of the nervous system complicating pregnancy, third trimester; O99.013 Anemia complicating pregnancy, third trimester; O99.333 Smoking (tobacco) complicating pregnancy, third trimester; D50.9 Iron deficiency anemia, unspecified; G35 Multiple sclerosis; F17.290 Nicotine dependence, other tobacco product, uncomplicated; Z88.1 Allergy status to other antibiotic agents; Z3A.38 38 weeks gestation of pregnancy
CPT/HCPCS: 59025; G0463

== ENCOUNTER 2024-06-22 22:58 | Inpatient (IN) | payer OTHER ==
[~2024-06-22] VITALS: Ht 152.4 cm; Wt 78.0 kg
[~2024-06-22 22:58] MED LIST changes: +ACET-897 PO
[2024-06-22] MEDS ORDERED: HOME MED LIST COMPLETE! XX SCH (23:10)
[2024-06-22 23:16] VITALS: BP 102/65
[2024-06-22] MEDS ORDERED: OXYTOCIN DRIP 30 UNITS in IV 1 EA IV PRN (23:35)
[2024-06-22] MEDS ORDERED: TRANEXAMIC ACID INJection 1,000 MG in NS 100 ML IV PRN (23:35)
[2024-06-22] MEDS ORDERED: LIDOCAINE 1% MDV 20ML VIAL INFIL PRN (23:35)
[2024-06-22] MEDS: LR 1,000 ML IV SCH (23:57)
[2024-06-22] MEDS: OXYTOCIN DRIP 30 UNITS in IV 1 EA IV SCH (23:57)
[2024-06-23] VITALS (45 sets, daily range): BP systolic 81–121; BP diastolic 42–68; O2SAT 95–98
[2024-06-23 00:11] LABS: HEMATOCRIT 30.6 % (36.0-47.0); HEMOGLOBIN 10.4 g/dl (12.0-15.5); MEAN CORPUSCULAR VOLUME 85.2 fl (80.0-96.0); PLATELET COUNT, AUTOMATED 176 10^3/uL (150-450); RED BLOOD COUNT 3.59 10^6/uL (4.00-5.40); WHITE BLOOD COUNT 9.2 10^3/uL (4.0-10.0)
[2024-06-23] MEDS: LR 1,000 ML IV ONE (05:03)
[2024-06-23] MEDS ORDERED: diphenhydrAMINE 50MG/ML VIAL IV PRN (05:55)
[2024-06-23] MEDS ORDERED: NALOXONE INJ 0.4MG/1ML VIAL IV PRN (05:55)
[2024-06-23] MEDS ORDERED: EPIDURAL/PCA KEYS XX PRN (05:55)
[2024-06-23] MEDS ORDERED: LR 500 ML IV PRN (05:55)
[2024-06-23] MEDS: FENTANYL/ROPIVACAINE/NACL BAG 100 ML EPIDURAL SCH (06:17)
[2024-06-23] MEDS: ePHEDrine SULFATE 25 MG/5 ML(5MG/ML) SYRINGE IVP PRN (07:02)
[2024-06-23] MEDS: ONDANSETRON 4MG 2ML VIAL IV PRN (07:28)
[2024-06-23] MEDS ORDERED: METHYLERGONOVINE MALEATE 0.2 MG TAB PO PRN (11:40)
[2024-06-23] MEDS ORDERED: ANUSOL HC CREAM 30GM TOP PRN (11:40)
[2024-06-23] MEDS ORDERED: CALCIUM CARBONATE 500 MG CHEW U/D PO PRN (11:40)
[2024-06-23] MEDS ORDERED: MOM 30ML SUSPENSION UDC PO PRN (11:40)
[2024-06-23] MEDS ORDERED: ACETAMINOPHEN 500 MG TAB PO PRN (11:40)
[2024-06-23] MEDS ORDERED: IBUPROFEN 800 MG TAB PO PRN (11:40)
[2024-06-23] MEDS ORDERED: DOCUSATE SODIUM 100MG CAPSULE PO PRN (11:40)
[2024-06-23] MEDS: OXYTOCIN DRIP 30 UNITS in IV 1 EA IV SCH (12:00)
[2024-06-23] MEDS: IBUPROFEN 600MG TAB PO PRN (12:35)
[2024-06-23 15:07] LABS: HEPATITIS C VIRUS ABY INDEX 0.03 INDEX (<0.8)
[2024-06-23] MEDS: RHOGAM 300MCG (1500IU) INJ IM SCH (16:06)
[2024-06-23] MEDS: OMEPRAZOLE 20MG CAP PO SCH (18:40)
[2024-06-23] MEDS: DIBUCAINE 1% OINTMENT 30GM TOP PRN (20:05)
[2024-06-23] MEDS: ACETAMINOPHEN 325 MG TAB PO PRN (21:02)
[2024-06-24 06:00] VITALS: BP 104/67; O2SAT 99
[2024-06-24] MEDS: PRENATAL VITAMINS CHEWABLE TABLET PO SCH (07:42)
[2024-06-24 18:00] VITALS: BP 116/76; O2SAT 96
[2024-06-25 06:05] VITALS: BP 100/66; O2SAT 98
[2024-06-25] MEDS: MEASLES,MUMPS,RUBELLA VACCINE INJ (MMR-II) SC.IMMUN ONE (09:00)
== END 2024-06-25 12:30 | disposition home or self-care (01) | DRG 807 ==
LOC: M LDI 22:58 → M OBS 06-23 15:48
PROVIDERS: ADMIT Obstetrics & Gynecology; ATTEND Obstetrics & Gynecology
PROC: 3E033VJ Introduction of Other Hormone into Peripheral Vein, Percutaneous Approach (ICD-10-PCS; 2024-06-22)
PROC: 10E0XZZ Delivery of Products of Conception, External Approach (ICD-10-PCS; principal; 2024-06-23)
DX: O99.354 Diseases of the nervous system complicating childbirth (principal); Z37.0 Single live birth; G35 Multiple sclerosis; Z3A.39 39 weeks gestation of pregnancy

== ENCOUNTER 2024-09-06 15:26 | Outpatient (CLI) | payer OTHER ==
[~2024-09-06] VITALS: Ht 157.5 cm; Wt 69.1 kg
[~2024-09-06 15:26] MED LIST changes: +ALBUTEROL SULFATE 2.5 MG/0.5 ML INH CONCENTRATE NEB SOLN INH PRN; +EPINEPHrine INJ 1 MG/ML 1ML AMP IM PRN; +NATALIZUMAB OVER 1 HOUR IV ONE; +NS (Normal Saline) 0.9% 1,000 ML IV SCH; +diphenhydrAMINE 50 MG/ML VIAL IV PRN
[2024-09-06 15:52] VITALS: BP 98/54; TEMP 97.3; O2SAT 98
[2024-09-06] MEDS ORDERED: NS (Normal Saline) 0.9% 1,000 ML IV SCH (15:55)
[2024-09-06] MEDS: NATALIZUMAB OVER 1 HOUR IV ONE (16:20)
[2024-09-06 17:25] VITALS: BP 126/68; TEMP 97.8; O2SAT 99
== END 2024-09-06 17:26 ==
LOC: M INFU 15:26
PROVIDERS: ATTEND Physician Assistant
DX: G35 Multiple sclerosis (principal); Z88.1 Allergy status to other antibiotic agents; Z88.8 Allergy status to other drugs, medicaments and biological substances
CPT/HCPCS: 96365; J2323

== ENCOUNTER → 2024-09-06 | Outpatient (CLI) | payer OTHER ==
[~2024-09-06] MED LIST changes: +LEXA1TAB2 PO; +TYSA1INJ IV
[2024-09-06 16:04] LABS: BASO # 0.1 10^3/uL (0.0-0.2); BASO % 1.0 % (0.0-1.0); EOS # 0.3 10^3/uL (0.0-0.5); EOS % 4.5 % (0.0-3.0); LYMPH # 2.3 10^3/uL (1.5-5.0); LYMPH % 33.0 % (24.0-44.0); MONO # 0.3 10^3/uL (0.0-0.8); MONO % 4.6 % (2.0-8.0); NEUTROPHILS # 3.9 10^3/uL (1.5-8.5); NEUTROPHILS % 56.6 % (36.0-66.0); PLATELET COUNT, AUTOMATED 222 10^3/uL (150-450)
[2024-09-06 16:38] LABS: ESTIMATED AVERAGE GLUCOSE 91.0 MG/DL (60-110)
[2024-09-06 16:46] LABS: FREE T4 1.06 NG/DL (0.89-1.76)
[2024-09-06 16:48] LABS: ALT/SGPT 10 U/L (7.0-40); AST/SGOT 12 U/L (<34); CALCIUM LEVEL 8.8 MG/DL (8.5-10.1); CARBON DIOXIDE LEVEL 26 MMOL/L (20-31); CHLORIDE LEVEL 107 MMOL/L (98-107); CHOLESTEROL LEVEL 158 MG/DL (<200); CHOLESTEROL RISK RATIO 3.53 (<5); CREATININE FOR GFR 0.83 MG/DL (0.55-1.30); GLOMERULAR FILTRATION RATE > 90.0 (>60); LDL CHOLESTEROL 97.3 MG/DL (<100); MAGNESIUM LEVEL 2.0 MG/DL (1.8-2.4); NON-HDL-C 113.3 MG/DL; POTASSIUM SERUM 4.4 MMOL/L (3.5-5.1); SODIUM LEVEL 144 MMOL/L (136-145); TRIGLYCERIDES LEVEL 80 MG/DL (<150)
== END ==
LOC: M LAB 15:27
PROVIDERS: ATTEND Physician Assistant Medical
DX: G35 Multiple sclerosis (principal)

== ENCOUNTER 2024-09-13 10:23 | Day surgery (SDC) | payer OTHER ==
[~2024-09-13] VITALS: Ht 154.9 cm; Wt 68.0 kg
[~2024-09-13 10:23] MED LIST changes: -ALBUTEROL SULFATE 2.5 MG/0.5 ML INH CONCENTRATE NEB SOLN INH PRN; -EPINEPHrine INJ 1 MG/ML 1ML AMP IM PRN; -NATALIZUMAB OVER 1 HOUR IV ONE; -NS (Normal Saline) 0.9% 1,000 ML IV SCH; -diphenhydrAMINE 50 MG/ML VIAL IV PRN
[2024-09-13] MEDS ORDERED: dexAMETHasone 4 MG/ML 1 ML VIAL As Ordered ONE (10:34)
[2024-09-13] MEDS ORDERED: MIDAZOLAM INJ 2 MG/2 ML VIAL As Ordered ONE (10:34)
[2024-09-13] MEDS ORDERED: KETOROLAC 30 MG/ML 1 ML VIAL As Ordered ONE (10:34)
[2024-09-13] MEDS ORDERED: ONDANSETRON 4MG 2ML VIAL As Ordered ONE (10:34)
[2024-09-13] MEDS ORDERED: ROCURONIUM BROMIDE 50MG/5ML VIAL As Ordered ONE (10:34)
[2024-09-13] MEDS ORDERED: HYDROmorphone HCL 2 MG/ML 1 ML VIAL As Ordered ONE (10:34)
[2024-09-13] MEDS ORDERED: LIDOCAINE 2% 100 MG/5 ML SDV (FOR ANES.) As Ordered ONE (10:34)
[2024-09-13] MEDS ORDERED: SUGAMMADEX SODIUM 500 MG/5 ML VIAL As Ordered ONE (10:34)
[2024-09-13] MEDS ORDERED: ACETAMINOPHEN 1000MG/100ML IV BAG As Ordered ONE (10:35)
[2024-09-13] MEDS ORDERED: LR 1,000 ML IV SCH (11:05)
[2024-09-13 11:17] LABS: PLATELET COUNT, AUTOMATED 248 10^3/uL (150-450)
[2024-09-13] MEDS: SCOPOLAMINE 1MG TRANSDERMAL PATCH TOP ONE (11:18)
[2024-09-13] MEDS ORDERED: GLYCOPYRROLATE INJ 0.2 MG/ML 2 ML VIAL As Ordered ONE (11:35)
[2024-09-13] MEDS ORDERED: ONDANSETRON 4MG 2ML VIAL IV PRN (12:30)
[2024-09-13 15:07] VITALS: BP 102/65; TEMP 97.1; O2SAT 99
== END 2024-09-13 15:20 | disposition home or self-care (01) ==
LOC: M SDC 10:23
PROVIDERS: ATTEND Obstetrics & Gynecology
DX: Z30.2 Encounter for sterilization (principal); G35 Multiple sclerosis; Z79.899 Other long term (current) drug therapy; K21.9 Gastro-esophageal reflux disease without esophagitis; F41.9 Anxiety disorder, unspecified; F32.A Depression, unspecified; F17.290 Nicotine dependence, other tobacco product, uncomplicated; Z90.49 Acquired absence of other specified parts of digestive tract; Z90.89 Acquired absence of other organs; Z88.1 Allergy status to other antibiotic agents
CPT/HCPCS: 58661; 85027; 86850; 86900; 86901; 88302; J0131; J0665; J1100; J1171; J1596; J1885; J2250; J2405; J2765; J3010

== ENCOUNTER 2024-10-04 15:30 | Outpatient (CLI) | payer OTHER ==
[~2024-10-04] VITALS: Ht 152.4 cm; Wt 68.6 kg
[2024-10-04 15:30] VITALS: BP 126/71; O2SAT 99
[~2024-10-04 15:30] MED LIST changes: +ALBUTEROL SULFATE 2.5 MG/0.5 ML INH CONCENTRATE NEB SOLN INH PRN; +EPINEPHrine INJ 1 MG/ML 1ML AMP IM PRN; +diphenhydrAMINE 50 MG/ML VIAL IV PRN
[2024-10-04] MEDS: NATALIZUMAB OVER 1 HOUR IV ONE (16:03)
[2024-10-04 17:13] VITALS: BP 109/68; O2SAT 100
== END 2024-10-04 17:20 | disposition home or self-care (01) ==
LOC: M INFU 15:30
PROVIDERS: ATTEND Physician Assistant
DX: G35 Multiple sclerosis (principal); Z88.1 Allergy status to other antibiotic agents; Z88.8 Allergy status to other drugs, medicaments and biological substances
CPT/HCPCS: 96365; J2323

== ENCOUNTER 2024-11-01 15:30 | Outpatient (CLI) | payer OTHER ==
[~2024-11-01] VITALS: Ht 152.4 cm; Wt 68.2 kg
[~2024-11-01 15:30] MED LIST changes: +NS (Normal Saline) 0.9% 1,000 ML IV SCH
[2024-11-01 15:35] VITALS: BP 121/65; O2SAT 99
[2024-11-01] MEDS: NATALIZUMAB OVER 1 HOUR IV ONE (16:00)
[2024-11-01 17:15] VITALS: BP 112/50; O2SAT 99
== END 2024-11-01 17:15 | disposition home or self-care (01) ==
LOC: M INFU 15:30
PROVIDERS: ATTEND Physician Assistant
DX: G35 Multiple sclerosis (principal); Z88.1 Allergy status to other antibiotic agents; Z88.8 Allergy status to other drugs, medicaments and biological substances
CPT/HCPCS: 96365; J2323

== ENCOUNTER 2025-01-10 15:24 | Outpatient (CLI) | payer OTHER ==
[~2025-01-10] VITALS: Ht 162.6 cm; Wt 70.0 kg
[~2025-01-10 15:24] MED LIST changes: +NATALIZUMAB OVER 1 HOUR IV ONE
[2025-01-10 15:30] VITALS: BP 109/58; O2SAT 97
[2025-01-10] MEDS: NATALIZUMAB OVER 1 HOUR IV ONE (16:09)
[2025-01-10 17:20] VITALS: BP 106/68; O2SAT 99
== END 2025-01-10 17:20 | disposition home or self-care (01) ==
LOC: M INFU 15:24
PROVIDERS: ATTEND Physician Assistant
DX: G35.D Multiple sclerosis, unspecified (principal); Z88.1 Allergy status to other antibiotic agents; Z88.8 Allergy status to other drugs, medicaments and biological substances
CPT/HCPCS: 96365; J2323